=== PATIENT | female | born 1940 | race Caucasian/White ===

== ENCOUNTER 2018-09-04 10:07 | Emergency (ER) | payer MEDICARE, SELFPAY ==
[2018-09-04 10:34] VITALS: BP 129/63; PULSE 87; RESP 24; TEMP 36.8; O2SAT 92; BMI 31.1
--- NOTE | 2018-09-04 10:55 | HMH.EDUTC ---
[facility] [place] Disposition Clinical Impression: COPD exacerbation Depression Qualifiers: Depression Type: other depression Qualified Code(s): F32.89 - Other specified depressive episodes Hypertension Qualifiers: Hypertension type: essential hypertension Qualified Code(s): I10 - Essential (primary) hypertension Disposition: Home, Self-Care Condition on Discharge: Good Instructions: Chronic Obstructive Pulmonary Disease, DI for Chronic Obstructive Pulmonary Disease Additional Instructions: You have to get a primary care provider. We will give you a list of ones that are taking new patients. Prescriptions: Ipratropium/Albuterol Sulfate [Duoneb 3mL neb] 3 ml IH Q6HP PRN 30 Days #120 neb PRN Reason: Shortness Of Breath Albuterol Sulfate [Albuterol HFA Inhaler] 1 - 2 puffs IH Q4-6H PRN #1 inh PRN Reason: Shortness Of Breath Or Wheezing Atorvastatin Calcium [Atorvastatin 40mg Tab] 40 mg PO HS #30 tab Lisinopril [Lisinopril 20mg Tab] 20 mg PO DAILY #30 tab methylPREDNISolone [Medrol] 4 mg PO DIRECTED 6 Days #21 tab.ds.pk Metformin HCl 500 mg PO BID 30 Days #60 tab Pantoprazole Sodium [Pantoprazole 20mg Tab] 20 mg PO DAILY #30 tablet. Mirtazapine [Remeron 15mg tablet] 15 mg PO DAILY #30 tab Benzonatate [Tessalon Perle 100mg Cap] 100 mg PO TIDP PRN #30 cap PRN Reason: Cough Trazodone HCl 50 mg PO HS #30 tab Azithromycin [Z-Axel 250mg Tab] 250 mg PO UD DOSE PK #6 tab Referrals: Provider,Referral, MD [Primary Care Provider] - Time of Disposition: 11:05 Medical Decision Making - Medical Records Medical records reviewed: Yes: I reviewed the patient's medical records. - Jermaine Inquiry Pt receiving controlled substance: No Jermaine was queried for this patient: No Vital Signs: 09/04/18 10:34 09/04/18 11:07 Temperature 98.2 F 98.2 F Temperature Source Oral Oral Pulse Rate 87 Pulse Rate [Right Brachial] 87 Respiratory Rate 24 24 Blood Pressure 129/63 Blood Pressure [Right Arm] 129/63 Blood Pressure Mean [Right Arm] 85 Blood Pressure Source Automatic Cuff Blood Pressure Source [Right Arm] Automatic Cuff Blood Pressure Position Sitting Blood Pressure Position [Right Arm] Sitting 02 Sat by Pulse Oximetry 92 L Oxygen Delivery Method Room Air Room Air [facility] [place] HPI - General Stated complaint: Trouble Breathing Time Seen by Provider: 09/04/18 10:40 Mode of Arrival: Family Vehicle Source of Information: Patient Limitations: No Limitations Description of Symptoms (Recalled from Triage Doc. by RN): HERE REQUESTING MEDICATION REFILLS R/T NO PCP/TRANSPORTATION TO PCP. C/O SOB,COUGH AND CONGESTION/COPD EXACERBATION. WEARS HOME O2 HEENT Symptoms (Recalled from RN notes): Yes Resp Symptoms (Recalled from RN notes): Yes Skin Symptoms (Recalled from RN notes): No MS Symptoms (Recalled from RN notes): No Functional Status (Recalled from RN notes): N/A - History of Present Illness Provider Complaint: Her primary doctor recently moved away. She has a history of COPD. She is out of her medications and refills. She also states she has been coughing more than usual. She denies any chest pain. - Related Data Previous Rx's Medication Instructions Recorded Albuterol Sulfate [Albuterol HFA 1 - 2 puffs IH Q4-6H PRN #1 inh 09/04/18 Inhaler] Atorvastatin Calcium [Atorvastatin 40 mg PO HS #30 tab 09/04/18 40mg Tab] Azithromycin [Z-Axel 250mg Tab] 250 mg PO UD DOSE PK #6 tab 09/04/18 Benzonatate [Tessalon Perle 100mg 100 mg PO TIDP PRN #30 cap 09/04/18 Cap] Ipratropium/Albuterol Sulfate 3 ml IH Q6HP PRN 30 Days #120 neb 09/04/18 [Duoneb 3mL neb] Lisinopril [Lisinopril 20mg Tab] 20 mg PO DAILY #30 tab 09/04/18 Metformin HCl 500 mg PO BID 30 Days #60 tab 09/04/18 Mirtazapine [Remeron 15mg tablet] 15 mg PO DAILY #30 tab 09/04/18 Pantoprazole Sodium [Pantoprazole 20 mg PO DAILY #30 tablet. 09/04/18 20mg Tab] Trazodone HCl 50 mg PO HS #30 tab 09/04/18 methylPREDNISolone [Medrol] 4 mg PO DIRECTED 6 D
--- NOTE | 2018-09-04 11:00 | ED_ITS ---
[facility] Clinical Impression: COPD exacerbation Depression Qualifiers: Depression Type: other depression Qualified Code(s): F32.89 - Other specified depressive episodes Hypertension Qualifiers: Hypertension type: essential hypertension Qualified Code(s): I10 - Essential (primary) hypertension Disposition: Home, Self-Care Condition on Discharge: Good Instructions: Chronic Obstructive Pulmonary Disease, DI for Chronic Obstructive Pulmonary Disease Additional Instructions: You have to get a primary care provider. We will give you a list of ones that are taking new patients. Prescriptions: Ipratropium/Albuterol Sulfate [Duoneb 3mL neb] 3 ml IH Q6HP PRN 30 Days #120 neb PRN Reason: Shortness Of Breath Albuterol Sulfate [Albuterol HFA Inhaler] 1 - 2 puffs IH Q4-6H PRN #1 inh PRN Reason: Shortness Of Breath Or Wheezing Atorvastatin Calcium [Atorvastatin 40mg Tab] 40 mg PO HS #30 tab Lisinopril [Lisinopril 20mg Tab] 20 mg PO DAILY #30 tab methylPREDNISolone [Medrol] 4 mg PO DIRECTED 6 Days #21 tab.ds.pk Metformin HCl 500 mg PO BID 30 Days #60 tab Pantoprazole Sodium [Pantoprazole 20mg Tab] 20 mg PO DAILY #30 tablet. Mirtazapine [Remeron 15mg tablet] 15 mg PO DAILY #30 tab Benzonatate [Tessalon Perle 100mg Cap] 100 mg PO TIDP PRN #30 cap PRN Reason: Cough Trazodone HCl 50 mg PO HS #30 tab Azithromycin [Z-Axel 250mg Tab] 250 mg PO UD DOSE PK #6 tab Referrals: Provider,Referral, MD [Primary Care Provider] - Time of Disposition: 11:05 Medical Decision Making - Medical Records Medical records reviewed: Yes: I reviewed the patient's medical records. - Jermaine Inquiry Pt receiving controlled substance: No Jermaine was queried for this patient: No Vital Signs: 09/04/18 10:34 09/04/18 11:07 Temperature 98.2 F 98.2 F Temperature Source Oral Oral Pulse Rate 87 Pulse Rate [Right Brachial] 87 Respiratory Rate 24 24 Blood Pressure 129/63 Blood Pressure [Right Arm] 129/63 Blood Pressure Mean [Right Arm] 85 Blood Pressure Source Automatic Cuff Blood Pressure Source [Right Arm] Automatic Cuff Blood Pressure Position Sitting Blood Pressure Position [Right Arm] Sitting 02 Sat by Pulse Oximetry 92 L Oxygen Delivery Method Room Air Room Air [facility] [place] - General Stated complaint: Trouble Breathing Time Seen by Provider: 09/04/18 10:40 Mode of Arrival: Family Vehicle Source of Information: Patient Limitations: No Limitations Description of Symptoms (Recalled from Triage Doc. by RN): HERE REQUESTING MEDICATION REFILLS R/T NO PCP/TRANSPORTATION TO PCP. C/O SOB,COUGH AND CONGESTION/COPD EXACERBATION. WEARS HOME O2 HEENT Symptoms (Recalled from RN notes): Yes Resp Symptoms (Recalled from RN notes): Yes Skin Symptoms (Recalled from RN notes): No MS Symptoms (Recalled from RN notes): No Functional Status (Recalled from RN notes): N/A - History of Present Illness Provider Complaint: Her primary doctor recently moved away. She has a history of COPD. She is out of her medications and refills. She also states she has been coughing more than usual. She denies any chest pain. - Related Data Previous Rx's Medication Instructions Recorded Albuterol Sulfate [Albuterol HFA 1 - 2 puffs IH Q4-6H PRN #1 inh 09/04/18 Inhaler] Atorvastatin Calcium [Atorvastatin 40 mg PO HS #30 tab 06
[2018-09-04 11:07] VITALS: BP 129/63; PULSE 87; RESP 24; TEMP 36.8; O2SAT 92
== END 2018-09-04 11:15 | disposition home or self-care (01) ==
LOC: ER 10:21 → UTC 10:21
PROVIDERS: Emergency Provider Nurse Practitioner Family
DX: J44.1 Chronic obstructive pulmonary disease with (acute) exacerbation (principal); F32.89 Other specified depressive episodes; I10 Essential (primary) hypertension; E11.9 Type 2 diabetes mellitus without complications; Z79.84 Long term (current) use of oral hypoglycemic drugs; Z99.81 Dependence on supplemental oxygen; F17.210 Nicotine dependence, cigarettes, uncomplicated
CPT/HCPCS: G0463; 99201

== ENCOUNTER → 2019-08-24 13:37 | Outpatient (CLI) | payer MEDICARE, SELFPAY ==
[2019-08-24 14:19] LABS: Hemoglobin A1C 6.5 % (4.0-6.0)
[2019-08-24 14:37] LABS: Basophils # 0.1 K/mm3 (0-0.2); Basophils % 1.8 % (0.1-2.0); Eosinophils # 0.3 K/mm3 (0.0-0.4); Hematocrit 44.5 % (37.0-47.0); Hemoglobin 14.7 g/dL (12.2-16.2); Lymphocytes # 3.2 K/mm3 (0.7-4.5); Lymphocytes % 41.9 % (10-50); Mean Corpuscular Hemoglobin 29.5 pg (27.0-31.2); Mean Corpuscular Volume 89.4 fl (81-99); Mean Platelet Volume 9.4 fl (7.4-10.4); Monocytes # 0.3 K/mm3 (0.1-1.0); Monocytes % 3.3 % (1.7-9.3); Neutrophils # 3.8 K/mm3 (1.8-7.8); Platelet Count 198 K/mm3 (142-424); Red Blood Count 4.98 M/mm3 (4.20-5.40); Red Cell Distribution Width 13.9 % (11.5-17.5); White Blood Count 7.7 K/mm3 (4.8-10.8)
[2019-08-24 15:50] LABS: Chloride 104 mmol/L (98-107); Sodium 142 mmol/L (136-145)
[2019-08-24 16:05] LABS: Direct LDL Cholesterol 90.29 mg/dL (100-129)
[2019-08-24 16:11] LABS: Free T4 (Free Thyroxine) 0.96 ng/dl (0.78-2.19)
[2019-08-24 16:24] LABS: Thyroid Stimulating Hormone 4.88 uIU/mL (0.465-4.68)
[2019-08-24 16:28] LABS: Alanine Aminotransferase 15 U/L (12-78); Albumin Level 4.3 g/dl (3.5-5.0); Albumin/Globulin Ratio 1.5 (1.1-1.8); Alkaline Phosphatase 141 U/L (38-126); Aspartate Amino Transferase 17 U/L (14-36); Bilirubin,Total 0.5 mg/dl (0.2-1.3); Blood Urea Nitrogen 15 mg/dl (7-17); Calcium 9.2 mg/dl (8.4-10.2); Carbon Dioxide 28 mmol/L (22.0-30.0); Chol/HDL Ratio 2.5 (1-3.5); Cholesterol 148 mg/dl (140-200); Estimated Glomerular Filt Rate 53 ml/min (>60); GFR (African American) 65 ML/MIN (>60); Globulin 2.9 g/dL (1.3-3.2); Glucose 157 mg/dl (74-100); HDL Cholesterol 59 mg/dl (40-60); Total Protein,Serum 7.2 g/dl (6.3-8.2); Triglycerides 121 mg/dl (30-150); VLDL Cholesterol 24 mg/dL (0-40)
[2019-08-24 16:33] LABS: Anion Gap 14.1 mEq/L (5-15); Potassium 4.1 mmoL/L (3.5-5.1)
[2019-08-26 09:59] LABS: Vitamin D 25 Hydroxy 28.4 ng/mL (30.0-100.0)
== END ==
PROVIDERS: Visit Provider Emergency Medicine
DX: E11.9 Type 2 diabetes mellitus without complications (principal); J44.9 Chronic obstructive pulmonary disease, unspecified; F32.9 Major depressive disorder, single episode, unspecified; I10 Essential (primary) hypertension; E55.9 Vitamin D deficiency, unspecified
CPT/HCPCS: 36415; 80053; 80061; 82652; 83036; 84439; 84443; 85025

== ENCOUNTER → 2019-09-20 15:12 | Outpatient (CLI) | payer MEDICARE, MEDICAID, SELFPAY ==
[2019-09-21 19:07] LABS: Microalbumin/Creatinine Ratio 5.9
[2019-09-21 19:14] LABS: Creatinine,Urine Random 112 mg/dL (Not Estab.)
== END ==
PROVIDERS: Visit Provider Emergency Medicine
DX: E11.9 Type 2 diabetes mellitus without complications (principal); Z79.84 Long term (current) use of oral hypoglycemic drugs
CPT/HCPCS: 82043; 82570

== ENCOUNTER 2019-11-26 21:19 | Emergency (ER) | payer MEDICARE, MEDICAID, SELFPAY ==
[2019-11-26 21:16] VITALS: BP 164/76; PULSE 83; RESP 18; TEMP 36.6; O2SAT 95; BMI 28.2
--- NOTE | 2019-11-26 21:23 | HMH.EDGENADL ---
ED Disposition Clinical Impression: Abnormal CT scan, cervical spine CVA (cerebral vascular accident) Qualifiers: CVA mechanism: unspecified Qualified Code(s): I63.9 - Cerebral infarction, unspecified Disposition: Xfer Short-Term Hosp Condition on Discharge: Fair Referrals: ProviderParamjit [Tech - Non Licensed] - - Critical Care Critical Care Time: No Attestation: On 11/26/19, the high probability of a clinically significant, sudden or life threatening deterioration of the following system(s) required my full and direct attention, intervention and personal management. The time I documented below is in addition to time spent performing reported procedures but includes the following listed in this critical care notation. Medical Decision Making - Medical Records Medical records reviewed: Yes: I reviewed the patient's medical records. - Jermaine Inquiry Pt receiving controlled substance: No Vital Signs: 11/26/19 21:16 11/26/19 21:29 11/27/19 00:02 Temperature 97.8 F Temperature Source Oral Pulse Rate Pulse Rate [Orthostatic Lying] 85 Pulse Rate [Orthostatic Sitting] 96 H Pulse Rate [Orthostatic Standing] 92 H Pulse Rate [Right Radial] 83 91 H Respiratory Rate 18 18 Blood Pressure Blood Pressure [Left Arm] 164/76 H 164/79 H Blood Pressure [Orthostatic Lying] 165/90 H Blood Pressure [Orthostatic Sitting] 159/95 H Blood Pressure [Orthostatic Standing] 151/90 H Blood Pressure Mean [Left Arm] 105 107 Blood Pressure Source Blood Pressure Source [Left Arm] Automatic Cuff Blood Pressure Position Blood Pressure Position [Left Arm] Supine 02 Sat by Pulse Oximetry 95 93 L Oxygen Delivery Method Room Air 11/27/19 00:03 11/27/19 00:26 11/27/19 01:38 Temperature Temperature Source Pulse Rate Pulse Rate [Orthostatic Lying] Pulse Rate [Orthostatic Sitting] Pulse Rate [Orthostatic Standing] Pulse Rate [Right Radial] 101 H 84 87 Respiratory Rate 18 16 16 Blood Pressure Blood Pressure [Left Arm] 151/90 H 193/100 H 210/110 H Blood Pressure [Orthostatic Lying] Blood Pressure [Orthostatic Sitting] Blood Pressure [Orthostatic Standing] Blood Pressure Mean [Left Arm] 110 131 143 Blood Pressure Source Blood Pressure Source [Left Arm] Blood Pressure Position Blood Pressure Position [Left Arm] Sitting 02 Sat by Pulse Oximetry 92 L 96 98 Oxygen Delivery Method Room Air Room Air Room Air 11/27/19 01:42 11/27/19 01:56 11/27/19 02:07 Temperature Temperature Source Pulse Rate Pulse Rate [Orthostatic Lying] Pulse Rate [Orthostatic Sitting] Pulse Rate [Orthostatic Standing] Pulse Rate [Right Radial] 80 82 Respiratory Rate 18 18 Blood Pressure 210/110 H Blood Pressure [Left Arm] 172/104 H 168/98 H Blood Pressure [Orthostatic Lying] Blood Pressure [Orthostatic Sitting] Blood Pressure [Orthostatic Standing] Blood Pressure Mean [Left Arm] 126 121 Blood Pressure Source Blood Pressure Source [Left Arm] Blood Pressure Position Blood Pressure Position [Left Arm] 02 Sat by Pulse Oximetry 95 93 L Oxygen Delivery Method Room Air Room Air 11/27/19 02:36 11/27/19 03:14 Temperature 98.4 F Temperature Source Oral Pulse Rate 87 Pulse Rate [Orthostatic Lying] Pulse Rate [Orthostatic Sitting] Pulse Rate [Orthostatic Standing] Pulse Rate [Right Radial] 76 Respiratory Rate 18 16 Blood Pressure 190/100 H Blood Pressure [Left Arm] 173/91 H Blood Pressure [Orthostatic Lying] Blood Pressure [Orthostatic Sitting] Blood Pressure [Orthostatic Standing] Blood Pressure Mean [Left Arm] 118 Blood Pressure Source Automatic Cuff Blood Pressure Source [Left Arm] Blood Pressure Position Sitting Blood Pressure Position [Left Arm] 02 Sat by Pulse Oximetry 92 L Oxygen Delivery Method Room Air Room Air - Lab Data Lab results reviewed: Yes: I reviewed the patient's lab results. L
[2019-11-26 21:29] VITALS: BP 164/79; PULSE 91; RESP 18; O2SAT 93
--- NOTE | 2019-11-26 21:39 | XR_ITS ---
PROCEDURE: XR HIP RT 2-3V W/PELVIS CLINICAL INDICATION: FALL Fall with injury and pain COMPARISON: CR HIP2L HIP-2 VIEWS-LT from 12/09/2014 FINDINGS: No fracture or dislocation is evident. No significant degenerative change. No lytic or blastic change. There are coarse central pelvic calcification which may be due to uterine fibroid involvement.. IMPRESSION: No acute findings. Dictated by: Sergey Varghese MD 11/27/2019 06:26 Sergey Varghese MD in [facility] 11/27/2019 06:26
--- NOTE | 2019-11-26 21:39 | CT_ITS ---
PROCEDURE: CT HEAD/BRAIN WO CON CLINICAL INDICATION: FALL Head injury with headache/pain, contusion, abrasion or hematoma, multiple falls COMPARISON: No exams were available for comparison TECHNIQUE: Axial images obtained. All CT scans at the facility use one or more dose reduction, viz: automated exposure control, ma/kV adjustment per patient size (including targeted exams where dose is matched to indication, i.e. head), or iterative reconstruction technique. FINDINGS: Low-density changes are present in the left cerebellar hemisphere with loss of ying/white matter differentiation. No intracranial hemorrhage is evident. These findings are worrisome for acute or subacute infarction. MRI may confirm. There is an old lacunar infarction of the joe centrally. Encephalomalacia changes are present in the left occipital lobe and in the right frontal parietal junction. There are old bilateral lacunar infarctions. No hydrocephalus. Periventricular ischemic gliotic changes are noted Mucosal thickening is present in the sphenoid sinus on the right. IMPRESSION: 1. Low-density changes with mild mass effect and edema in the left cerebellar hemisphere consistent with acute or subacute infarction. Consider MRI for confirmation. 2. Cephalo malacia changes left occipital lobe and right frontal parietal region with old bilateral lacunar infarctions. 3. No acute intracranial hemorrhage 4. [facility] report rendered and dated 11/26/2019 at 11:24 p.m. Dictated by: Sergey Varghese MD 11/27/2019 06:51 Sergey Varghese MD in [facility] 11/27/2019 06:51
--- NOTE | 2019-11-26 21:51 | ECG_ITS ---
APPROVED REPORT Exam: Resting ECG HR:81 bpm ECG Measurements Heart Rate 81 AXES LA 150 P 65 QRSd 84 QRS 12 QT 434 T 44 QTc 504 <Conclusion> Sinus rhythm with occasional premature ventricular complexes Prolonged QT Abnormal ECG Electronically signed by : Micky Huynh, 11/27/2019 09:59:32
--- NOTE | 2019-11-26 21:51 | CT_ITS ---
PROCEDURE: CT CERVICAL SPINE WO CON CLINICAL INDICATION: fall Posttraumatic pain Neck injury with pain, contusion/abrasion or hematoma, cervical sprain/strain the COMPARISON: No exams were available for comparison TECHNIQUE: Axial images obtained with sagittal and coronal reformats. All CT scans at the facility use one or more dose reduction, viz: automated exposure control, ma/kV adjustment per patient size (including targeted exams where dose is matched to indication, i.e. head), or iterative reconstruction technique. Axial spiral CT scanning performed of the cervical spine beginning at the base of the skull and continuing to the upper T-spine. 3-D multiplanar reconstruction with 3-D manipulation of volumetric data set in image rendering was completed by the radiologist and/or technologist with the supervision of the radiologist on independent workstation. FINDINGS: There is normal alignment. Multilevel cervical spondylosis is present. There is rotation of C1 to the right on C2 possibly positional. Please correlate with physical exam. No prevertebral soft tissue swelling. Multilevel degenerative changes are present. No acute fracture or dislocation. C2-C3: Unremarkable. C3-C4: Degenerative disc disease. C4-C5: Degenerative disc disease with mild right foraminal narrowing. C5-C6: Degenerate disc disease with bilateral foraminal narrowing C6-C7: Degenerate disc disease. There is a corrugated appearance of the T2 vertebral body consistent with hemangioma involvement. Paraseptal emphysematous changes are present in the lung apices. IMPRESSION: 1. No acute fracture. 2. Rotation of C1 on C2 possibly positional, correlate clinically. 3. Degenerative changes. 4. Hemangioma T2 Dictated by: Sergey Varghese MD 11/27/2019 06:57 Sergey Varghese MD in [facility] 11/27/2019 06:57
[2019-11-26 22:20] LABS: Basophils % 0.3 % (0.1-2.0); Eosinophils # 0.1 K/mm3 (0.0-0.4); Eosinophils % 0.9 % (0.1-12.0); Hemoglobin 16.2 g/dL (12.2-16.2); Lymphocytes # 1.7 K/mm3 (0.7-4.5); Lymphocytes % 12.7 % (10-50); Mean Corpuscular HGB Conc 34.5 g/dL (31.8-35.4); Mean Corpuscular Hemoglobin 30.1 pg (27.0-31.2); Mean Corpuscular Volume 87.2 fl (81-99); Mean Platelet Volume 9.4 fl (7.4-10.4); Monocytes # 0.3 K/mm3 (0.1-1.0); Monocytes % 2.3 % (1.7-9.3); Neutrophils # 11.2 K/mm3 (1.8-7.8); Neutrophils % 83.8 % (37.0-80.0); Platelet Count 188 K/mm3 (142-424); Red Blood Count 5.39 M/mm3 (4.20-5.40); Red Cell Distribution Width 14.2 % (11.5-17.5); White Blood Count 13.4 K/mm3 (4.8-10.8)
[2019-11-26 22:23] LABS: Chloride 98 mmol/L (98-107); Potassium 4.1 mmoL/L (3.5-5.1); Sodium 140 mmol/L (136-145)
[2019-11-26 22:26] LABS: Alanine Aminotransferase 35 U/L (12-78); Albumin Level 4.9 g/dl (3.5-5.0); Albumin/Globulin Ratio 1.3 (1.1-1.8); Alkaline Phosphatase 200 U/L (38-126); Anion Gap 15.1 mEq/L (5-15); Aspartate Amino Transferase 34 U/L (14-36); Bilirubin,Total 0.7 mg/dl (0.2-1.3); Blood Urea Nitrogen 15 mg/dl (7-17); Calcium 10.4 mg/dl (8.4-10.2); Carbon Dioxide 31 mmol/L (22.0-30.0); Creatinine Clearance Estimated 57 mL/min (50-200); Estimated Glomerular Filt Rate 60 ml/min (>60); GFR (African American) 73 ML/MIN (>60); Globulin 3.8 g/dL (1.3-3.2); Glucose 190 mg/dl (74-100); Total Protein,Serum 8.7 g/dl (6.3-8.2)
[2019-11-26 22:39] LABS: Troponin I < 0.01 ng/ml (0.00-0.034)
--- NOTE | 2019-11-26 23:24 | PC.NURSE ---
speaking with MARVIN
--- NOTE | 2019-11-26 23:26 | XR_ITS ---
PROCEDURE: XR CHEST PORTABLE CLINICAL HISTORY: falls, vomiting Posttraumatic pain COMPARISON: CR CXR1 CHEST-PORTABLE from 11/20/2016 CR CXR2V XR chest 2V from 07/03/[address] chest wo con from 07/03/2018 CR XR CHEST 2V from 11/05/2018 FINDINGS: Normal heart size. There is increased density in the right paratracheal region with deviation of the trachea toward the left There is some vascular crowding in the right lung base. No lobar consolidation or collapse. No acute bony abnormalities. IMPRESSION: Trachea toward the left with increased density of the right paratracheal region suggesting right paratracheal mass. CT with contrast may confirm. Dictated by: Sergey Varghese MD 11/27/2019 06:24 Sergey Varghese MD in [facility] 11/27/2019 06:24
--- NOTE | 2019-11-26 23:54 | PC.NURSE ---
ATTENDING PROVIDER ADVISES C-COLLAR SHOULD BE PLACED AT THIS TIME DUE TO ABNORMAL HEAD/NECK CT RESULTS. AWAITING NEW ORDERS. PATIENT IS NAD. VSS
--- NOTE | 2019-11-26 23:59 | PC.NURSE ---
Calling [facility]
[2019-11-27] VITALS (9 sets, daily range): BP systolic 151–210; BP diastolic 90–110; PULSE 76–101; RESP 16–18; TEMP 36.9; O2SAT 92–98
[2019-11-27 00:05] LABS: Microscopic, Urine URINE MICROSCOPIC (MICROSCOPIC)
--- NOTE | 2019-11-27 00:05 | PC.NURSE ---
Cervical collar applied at this time
--- NOTE | 2019-11-27 00:05 | PC.NURSE ---
speaking with Dr. Pathak
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
[2019-11-27 00:15] LABS: Appearance,Urine CLOUDY (Clear); Bilirubin,Urine Negative (Negative); Blood, Urine 1+ (Negative); Color,Urine YELLOW (Yellow); Glucose,Urine (UA) Negative (Negative); Ketones,Urine Negative (Negative); Leukocyte Esterase,Urine TRACE (Negative); Nitrate,Urine Negative (Negative); Protein,Urine 1+ (Negative)
--- NOTE | 2019-11-27 00:28 | PC.NURSE ---
Notified family what the POC was and that there would be a delay in transfer. Family and pt agreeable to plan
[2019-11-27 00:30] LABS: Bacteria,Urine 4+ /lpf
--- NOTE | 2019-11-27 01:38 | PC.NURSE ---
Manual pressure obtained, pressure is 210/110. Notified MD of increase and given order for meds
== END 2019-11-27 03:15 | disposition short-term general hospital (02) ==
PROVIDERS: Emergency Provider Emergency Medicine; PCP Emergency Medicine
DX: I63.9 Cerebral infarction, unspecified (principal); R93.7 Abnormal findings on diagnostic imaging of other parts of musculoskeletal system; I10 Essential (primary) hypertension; E11.9 Type 2 diabetes mellitus without complications; J44.9 Chronic obstructive pulmonary disease, unspecified; F17.210 Nicotine dependence, cigarettes, uncomplicated; Z79.899 Other long term (current) drug therapy; Z86.73 Personal history of transient ischemic attack (TIA), and cerebral infarction without residual deficits; W18.39XA Other fall on same level, initial encounter; Y92.019 Unspecified place in single-family (private) house as the place of occurrence of the external cause
CPT/HCPCS: 70450; 71045; 72125; 73502; 80053; 81001; 84484; 85025; 87086; 87088; 87186; 93005; 96374; 96375; 99285; J2405

== ENCOUNTER → 2020-02-08 17:44 | Outpatient (CLI) | payer MEDICARE, MEDICAID, SELFPAY ==
[2020-02-08 18:40] LABS: Basophils # 0.1 K/mm3 (0-0.2); Basophils % 0.6 % (0.1-2.0); Eosinophils # 0.2 K/mm3 (0.0-0.4); Eosinophils % 2.3 % (0.1-12.0); Hemoglobin 15.5 g/dL (12.2-16.2); Lymphocytes # 3.1 K/mm3 (0.7-4.5); Lymphocytes % 35.9 % (10-50); Mean Corpuscular HGB Conc 33.7 g/dL (31.8-35.4); Mean Corpuscular Volume 88.8 fl (81-99); Mean Platelet Volume 10.1 fl (7.4-10.4); Monocytes # 0.4 K/mm3 (0.1-1.0); Monocytes % 4.3 % (1.7-9.3); Neutrophils % 56.9 % (37.0-80.0); Platelet Count 209 K/mm3 (142-424); Red Blood Count 5.18 M/mm3 (4.20-5.40); Red Cell Distribution Width 14.5 % (11.5-17.5); White Blood Count 8.7 K/mm3 (4.8-10.8)
[2020-02-08 19:43] LABS: Anion Gap 18.6 mEq/L (5-15); Blood Urea Nitrogen 20 mg/dl (7-17); Calcium 10.6 mg/dl (8.4-10.2); Carbon Dioxide 27 mmol/L (22.0-30.0); Chloride 98 mmol/L (98-107); Estimated Glomerular Filt Rate 53 ml/min (>60); GFR (African American) 65 ML/MIN (>60); Glucose 287 mg/dl (74-100); Potassium 4.6 mmoL/L (3.5-5.1); Sodium 139 mmol/L (136-145)
[2020-02-09 18:42] LABS: Hemoglobin A1C 8.8 % (4.0-6.0)
== END ==
PROVIDERS: Physician Assistant; Visit Provider Emergency Medicine
DX: E11.9 Type 2 diabetes mellitus without complications (principal); Z79.84 Long term (current) use of oral hypoglycemic drugs
CPT/HCPCS: 80048; 83036; 85025

== ENCOUNTER → 2020-02-25 08:45 | Outpatient (CLI) | payer MEDICARE, MEDICAID, SELFPAY ==
--- NOTE | 2020-02-25 08:50 | CT_ITS ---
PROCEDURE: CT CHEST W CON CLINCAL INDICATION: RIGHT PARATRACHEAL MASS Follow-up abnormal chest x-ray with tracheal deviation COMPARISON: CT CHESTWO CT chest wo con from 07/03/2018 CR XR CHEST PORTABLE from 11/26/2019 TECHNIQUE: IV Contrast: 75ml Isovue 370 Axial images obtained with sagittal and coronal reformats. All CT scans at the facility use one or more dose reduction, viz: automated exposure control, ma/kV adjustment per patient size (including targeted exams where dose is matched to indication, i.e. head), or iterative reconstruction technique. FINDINGS: HEART AND MEDIASTINAL STRUCTURES: The upper trachea is slightly deviated toward the left. There is mildly enlarged right lobe of the thyroid gland and vascular ectasia which may account for this finding. No suspicious paratracheal mass is apparent with no significant change from 07/03/2018. There are few small mediastinal lymph nodes. There is mild dilatation of the descending thoracic aorta with atheromatous plaque with some ulceration. There is a focal area of dilatation of the descending thoracic aorta with the aorta measuring 3.2 cm in AP with some ulcerated plaque at this area. No evidence of dissection dimension LUNGS AND PLEURAL SPACES: Paraseptal and centrilobular emphysema with evidence of old granulomatous disease. No lobar consolidation or collapse. There are dependent changes in the lower lobes and along the major fissure superiorly. BONY STRUCTURES: Degenerative changes thoracic spine with mild kyphosis. Hemangioma at T2. UPPER ABDOMEN: Unremarkable. ADDITIONAL FINDINGS: No other significant abnormalities. IMPRESSION: 1. No paratracheal mass evident. There is mild enlargement of the right lobe of the thyroid gland with ectasia of the right carotid artery which may be causing some mild deviation of the trachea toward the left. 2. Focal dilatation of the descending thoracic aorta at 3.2 cm which may be slightly more prominent. Continued follow-up suggested. There is some ulcerating plaque at this area. 3. Other nonacute findings as described above Dictated by: Sergey Varghese MD 02/27/2020 10:43 Sergey Varghese MD in [facility] 02/27/2020 10:43
[2020-02-25 09:04] LABS: Chloride 103 mmol/L (98-107); Potassium 4.4 mmoL/L (3.5-5.1); Sodium 138 mmol/L (136-145)
[2020-02-25 09:07] LABS: Anion Gap 10.4 mEq/L (5-15); Blood Urea Nitrogen 20 mg/dl (7-17); Carbon Dioxide 29 mmol/L (22.0-30.0); Estimated Glomerular Filt Rate 43 ml/min (>60); GFR (African American) 52 ML/MIN (>60)
[2020-02-25 09:08] LABS: Calcium 9.7 mg/dl (8.4-10.2); Glucose 206 mg/dl (74-100)
== END ==
PROVIDERS: PCP Emergency Medicine; Visit Provider Emergency Medicine
DX: J39.8 Other specified diseases of upper respiratory tract (principal); R22.1 Localized swelling, mass and lump, neck
CPT/HCPCS: 36415; 71260; 80048; Q9967

== ENCOUNTER → 2021-03-07 16:09 | Outpatient (CLI) | payer MEDICARE, MEDICAID, SELFPAY ==
[2021-03-07 17:28] LABS: Hemoglobin A1C 6.9 % (4.0-6.0)
== END ==
PROVIDERS: Visit Provider Emergency Medicine
DX: E11.9 Type 2 diabetes mellitus without complications (principal); Z79.84 Long term (current) use of oral hypoglycemic drugs
CPT/HCPCS: 83036

== ENCOUNTER → 2022-08-12 16:00 | Outpatient (CLI) | payer MEDICARE, MEDICAID, SELFPAY ==
[2022-08-12 18:33] LABS: Chloride 104 mmol/L (98-107); Potassium 4.8 mmoL/L (3.5-5.1); Sodium 140 mmol/L (136-145)
[2022-08-12 18:35] LABS: Blood Urea Nitrogen 21 mg/dl (7-17); Estimated Glomerular Filt Rate 43 ml/min (>60); GFR (African American) 52 ML/MIN (>60)
[2022-08-12 18:36] LABS: Alanine Aminotransferase 21 U/L (12-78); Albumin Level 4.4 g/dl (3.5-5.0); Albumin/Globulin Ratio 1.4 (1.1-1.8); Alkaline Phosphatase 147 U/L (38-126); Anion Gap 12.8 mEq/L (5-15); Aspartate Amino Transferase 25 U/L (14-36); Bilirubin,Total 0.4 mg/dl (0.2-1.3); Calcium 10.3 mg/dl (8.4-10.2); Carbon Dioxide 28 mmol/L (22.0-30.0); Chol/HDL Ratio 3.9 (1-3.5); Cholesterol 201 mg/dl (140-200); Globulin 3.1 g/dL (1.3-3.2); Glucose 107 mg/dl (74-100); HDL Cholesterol 51 mg/dl (40-60); Total Protein,Serum 7.5 g/dl (6.3-8.2); Triglycerides 221 mg/dl (30-150); VLDL Cholesterol 44 mg/dL (0-40)
[2022-08-12 18:44] LABS: Basophils # 0.1 K/mm3 (0-0.2); Basophils % 0.6 % (0.1-2.0); Eosinophils # 0.2 K/mm3 (0.0-0.4); Eosinophils % 2.6 % (0.1-12.0); Hematocrit 47.2 % (37.0-47.0); Hemoglobin 15.6 g/dL (12.2-16.2); Lymphocytes # 2.8 K/mm3 (0.7-4.5); Lymphocytes % 32.6 % (10-50); Mean Corpuscular Hemoglobin 29.6 pg (27.0-31.2); Mean Corpuscular Volume 89.7 fl (81-99); Mean Platelet Volume 9.5 fl (7.4-10.4); Monocytes # 0.4 K/mm3 (0.1-1.0); Monocytes % 4.7 % (1.7-9.3); Neutrophils # 5.2 K/mm3 (1.8-7.8); Neutrophils % 59.5 % (37.0-80.0); Platelet Count 223 K/mm3 (142-424); Red Blood Count 5.26 M/mm3 (4.20-5.40); Red Cell Distribution Width 14.4 % (11.5-17.5); White Blood Count 8.7 K/mm3 (4.8-10.8)
[2022-08-12 18:47] LABS: Direct LDL Cholesterol 106.26 mg/dL (100-129)
[2022-08-12 18:54] LABS: T4 (Thyroxine) 10.3 ug/dl (5.53-11.0)
[2022-08-12 19:07] LABS: Thyroid Stimulating Hormone 3.96 uIU/mL (0.465-4.68)
[2022-08-12 19:42] LABS: Free T4 (Free Thyroxine) 1.03 ng/dl (0.78-2.19)
[2022-08-13 09:12] LABS: Hemoglobin A1C 6.6 % (4.0-6.0)
== END ==
PROVIDERS: PCP Nurse Practitioner Family; Visit Provider Nurse Practitioner Family
DX: E11.9 Type 2 diabetes mellitus without complications (principal); I10 Essential (primary) hypertension; Z79.84 Long term (current) use of oral hypoglycemic drugs
CPT/HCPCS: 80053; 80061; 83036; 84436; 84439; 84443; 85025

== ENCOUNTER → 2023-02-12 23:00 | Outpatient (CLI) | payer MEDICARE, MEDICAID, SELFPAY ==
[2023-02-12 18:39] LABS: Basophils % 0.5 % (0.1-2.0); Eosinophils # 0.2 K/mm3 (0.0-0.4); Eosinophils % 2.4 % (0.1-12.0); Hematocrit 46.2 % (37.0-47.0); Hemoglobin 15.1 g/dL (12.2-16.2); Lymphocytes % 36.6 % (10-50); Mean Corpuscular HGB Conc 32.7 g/dL (31.8-35.4); Mean Corpuscular Hemoglobin 30.6 pg (27.0-31.2); Mean Corpuscular Volume 93.7 fl (81-99); Mean Platelet Volume 9.5 fl (7.4-10.4); Monocytes # 0.4 K/mm3 (0.1-1.0); Monocytes % 5.1 % (1.7-9.3); Neutrophils # 4.6 K/mm3 (1.8-7.8); Neutrophils % 55.4 % (37.0-80.0); Platelet Count 207 K/mm3 (142-424); Red Blood Count 4.93 M/mm3 (4.20-5.40); Red Cell Distribution Width 14.2 % (11.5-17.5); White Blood Count 8.2 K/mm3 (4.8-10.8)
[2023-02-12 18:44] LABS: Alanine Aminotransferase 20 U/L (12-78); Albumin Level 4.2 g/dl (3.5-5.0); Albumin/Globulin Ratio 1.4 (1.1-1.8); Alkaline Phosphatase 182 U/L (38-126); Anion Gap 11.3 mEq/L (5-15); Aspartate Amino Transferase 23 U/L (14-36); Bilirubin,Total 0.3 mg/dl (0.2-1.3); Blood Urea Nitrogen 21 mg/dl (7-17); Calcium 9.1 mg/dl (8.4-10.2); Carbon Dioxide 28 mmol/L (22.0-30.0); Chloride 103 mmol/L (98-107); Chol/HDL Ratio 5.5 (1-3.5); Cholesterol 216 mg/dl (140-200); Estimated Glomerular Filt Rate 43 ml/min (>60); GFR (African American) 52 ML/MIN (>60); Globulin 3.1 g/dL (1.3-3.2); Glucose 139 mg/dl (74-100); HDL Cholesterol 39 mg/dl (40-60); Potassium 4.3 mmoL/L (3.5-5.1); Sodium 138 mmol/L (136-145); Total Protein,Serum 7.3 g/dl (6.3-8.2); Triglycerides 271 mg/dl (30-150); VLDL Cholesterol 54 mg/dL (0-40)
[2023-02-12 18:56] LABS: Direct LDL Cholesterol 129.31 mg/dL (100-129)
[2023-02-12 19:14] LABS: Thyroid Stimulating Hormone 3.84 uIU/mL (0.465-4.68)
[2023-02-12 19:42] LABS: 25-OH Vitamin D, Total > 126 ng/mL (30-100)
[2023-02-12 20:50] LABS: Hemoglobin A1C 6.9 % (4.0-6.0)
== END ==
LOC: LAB.DROPOF 02-13 00:06
PROVIDERS: PCP Emergency Medicine; Visit Provider Internal Medicine
DX: E03.9 Hypothyroidism, unspecified (principal); J20.9 Acute bronchitis, unspecified; E11.9 Type 2 diabetes mellitus without complications; E55.9 Vitamin D deficiency, unspecified; Z68.27 Body mass index [BMI] 27.0-27.9, adult; Z79.84 Long term (current) use of oral hypoglycemic drugs; Z72.0 Tobacco use
CPT/HCPCS: 80053; 80061; 82306; 83036; 84443; 85025

== ENCOUNTER 2023-06-12 17:20 | Emergency (ER) | payer MEDICARE, MEDICAID, SELFPAY ==
[2023-06-12 17:28] VITALS: BP 113/61; PULSE 107; RESP 22; TEMP 37.1; O2SAT 91; BMI 29.9
--- NOTE | 2023-06-12 17:28 | ED_ITS ---
<Statement entered by Gissel Wright DO - 06/12/23 17:54> I was consulted by the JESUS MANUEL, and we discussed the complexity of the problems being addressed. I approved the treatment and management plan for this patient's care in the emergency department, thus performing a substantive portion of the medical decision making. Gissel Wright DO Discharge Plan Disposition Patient Disposition: Xfer Short-Term Hosp Condition: Good Prescriptions Prescriptions: No Action (DME) blood-glucose meter Kit See Rx Instructions .ROUTE .MEDSUPPLY Qty: 1 3RF Rx Instructions: As directed (DME) True Metrix Glucose Test Strip Strip See Rx Instructions .Route Qty: 100 2RF Rx Instructions: As directed (DME) lancets [TRUEplus Lancets] 28 gauge misc See Rx Instructions .Route Qty: 100 2RF Rx Instructions: As directed ipratropium-albuterol 0.5 mg-3 mg(2.5 mg base)/3 mL solution for nebulization See Rx Instructions .ROUTE .COMPLEX Qty: 360 2RF Dose Instruction: INHALE CONTENTS OF 1 VIAL VIA NEBULIZER EVERY 6 HOURS NEEDED FOR SHORTNESS OF BREATH Rx Instructions: INHALE CONTENTS OF 1 VIAL VIA NEBULIZER EVERY 6 HOURS NEEDED FOR SHORTNESS OF BREATH Anoro Ellipta 62.5-25 mcg/actuation blister with device 1 inh inhalation DAILY Qty: 30 12RF cholecalciferol (vitamin D3) 1,250 mcg (50,000 unit) capsule See Rx Instructions .ROUTE .COMPLEX Qty: 4 3RF Dose Instruction: TAKE ONE CAPSULE BY MOUTH EVERY WEEK Rx Instructions: TAKE ONE CAPSULE BY MOUTH EVERY WEEK levothyroxine 25 mcg tablet See Rx Instructions .ROUTE .COMPLEX Qty: 28 3RF Dose Instruction: TAKE ONE TABLET BY MOUTH ONCE A DAY Rx Instructions: TAKE ONE TABLET BY MOUTH ONCE A DAY aspirin 81 mg tablet,chewable See Rx Instructions .ROUTE .COMPLEX Qty: 28 3RF Dose Instruction: CHEW 1 TABLET BY MOUTH ONCE A DAY Rx Instructions: CHEW 1 TABLET BY MOUTH ONCE A DAY metformin 500 mg tablet extended release 24 hr See Rx Instructions .ROUTE .COMPLEX Qty: 28 3RF Dose Instruction: TAKE ONE TABLET BY MOUTH ONCE A DAY Rx Instructions: TAKE ONE TABLET BY MOUTH ONCE A DAY clopidogrel 75 mg tablet See Rx Instructions .ROUTE .COMPLEX Qty: 28 3RF Dose Instruction: TAKE ONE TABLET BY MOUTH ONCE A DAY Rx Instructions: TAKE ONE TABLET BY MOUTH ONCE A DAY mirtazapine 15 mg tablet See Rx Instructions .ROUTE .COMPLEX Qty: 28 0RF Dose Instruction: TAKE ONE TABLET BY MOUTH ONCE A DAY Rx Instructions: TAKE ONE TABLET BY MOUTH ONCE A DAY cholecalciferol (vitamin D3) 25 mcg (1,000 unit) tablet See Rx Instructions .ROUTE .COMPLEX Qty: 90 0RF Dose Instruction: TAKE ONE TABLET BY MOUTH ONCE A DAY Rx Instructions: TAKE ONE TABLET BY MOUTH ONCE A DAY trazodone 50 mg tablet See Rx Instructions .ROUTE .COMPLEX Qty: 30 0RF Dose Instruction: TAKE ONE TABLET BY MOUTH AT BEDTIME FOR SLEEP Rx Instructions: TAKE ONE TABLET BY MOUTH AT BEDTIME FOR SLEEP pantoprazole 40 mg tablet,delayed release (DR/EC) See Rx Instructions .ROUTE .COMPLEX Qty: 30 0RF Dose Instruction: TAKE ONE TABLET BY MOUTH ONCE A DAY FOR GERD Rx Instructions: TAKE ONE TABLET BY MOUTH ONCE A DAY FOR GERD atorvastatin 40 mg tablet See Rx Instructions .ROUTE .COMPLEX Qty: 30 0RF Dose Instruction: TAKE ONE TABLET BY MOUTH AT BEDTIME FOR HIGH CHOLESTEROL Rx Instructions: TAKE ONE TABLET BY MOUTH AT BEDTIME FOR HIGH CHOLESTEROL amlodipine 2.5 mg tablet See Rx Instructions .ROUTE .COMPLEX Qty: 30 0RF Dose Instruction: TAKE ONE TABLET BY MOUTH ONCE A DAY Rx Instructions: TAKE ONE TABLET BY MOUTH ONCE A DAY lisinopril 30 mg tablet See Rx Instructions .ROUTE .COMPLEX Qty: 30 0RF Dose Instruction: TAKE ONE TABLET BY MOUTH ONCE A DAY Rx Instructions: TAKE ONE TABLET BY MOUTH ONCE A DAY nystatin 100,000 unit/mL suspension 500,000 unit buccal DAILY Qty: 473 0RF Rx Instructions: administer 1/2 of dose in each side of the mouth nystatin 100,000 unit/gram ointment 1 applic topical TID Qty: 30 0RF albuterol sulfate 8.5 GM HFA aerosol inhaler 2 puffs inhalation Q4HP PRN (Reason: Shortness Of Breath Or Wheezing) Qty: 1 2RF Referrals Follow up/Referrals: Brodie Rhodes DO [Primary Care Provider] - See instructions Clinical Impressions 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 Herpes zoster Qualifiers: Herpes zoster complications: with other complications Qualified Code(s): B02.8 - Zoster with other complications Stand Alone Forms Stand Alone Forms: Transfer Record - ED Instructions Patient Instructions: DI for Skin Abscess Discharge ED Provider: Gissel Wright General Adult HPI <DARY Temple - Last Filed: 06/16/23 14:36> General Chief complaint: Skin/Abscess/Foreign Body Stated complaint: blisters mouth and nose Time Seen by Provider: 06/12/23 17:28 History of Present Illness HPI narrative: Presents 6 to 7 days after finding clear blisters in her mouth that have continued to spread across the right side of her face involving her eye. Her daughter contacted her PCP who prescribed her for nystatin swish and swallow and nystatin topical ointment for the facial blisters. She started those medications on Friday of this week but has had no improvement. The patient contacted her daughter today saying that it was much worse and that she has lost ability to see in the right eye. Patient denies chest pain subjective fever endorses that it is hard for her to breathe and that she is short of air due to blisters in my mouth , nausea vomiting diarrhea hemoptysis hematochezia melena. Related Data Previous Rx's Medication Instructions Recorded albuterol sulfate 90 mcg/actuation 2 puffs inhalation Q4HP PRN 11/05/18 aerosol inhaler Shortness Of Breath Or Wheezing #1 inh blood-glucose meter #1 ea 03/09/21 blood sugar diagnostic (True #100 ea 01/24/22 Metrix Glucose Test Strip) lancets 28 gauge (TRUEplus Lancets) #100 ea 01/24/22 ipratropium 0.5 mg-albuterol 3 mg See Rx Instructions .Route 05/09/22 (2.5 mg base)/3 mL nebulization .COMPLEX #360 mL soln umeclidinium 62.5 mcg-vilanterol 1 inh inhalation DAILY #30 ea 11/04/22 25 mcg/actuation powdr for inhalation (Anoro Ellipta) aspirin 81 mg chewable tablet See Rx Instructions .Route 03/11/23 .COMPLEX #28 tabs cholecalciferol (vitamin D3) 1,250 See Rx Instructions .Route 03/11/23 mcg (50,000 unit) capsule .COMPLEX #4 caps clopidogrel 75 mg tablet See Rx Instructions .Route 03/11/23 .COMPLEX #28 tabs levothyroxine 25 mcg tablet See Rx Instructions .Route 03/11/23 .COMPLEX #28 tabs metformin 500 mg tablet,extended See Rx Instructions .Route 03/11/23 release 24 hr .COMPLEX #28 tabs amlodipine 2.5 mg tablet See Rx Instructions .Route 05/28/23 .COMPLEX #30 tabs atorvastatin 40 mg tablet See Rx Instructions .Route 05/28/23 .COMPLEX #30 tabs cholecalciferol (vitamin D3) 25 See Rx Instructions .Route 05/28/23 mcg (1,000 unit) tablet .COMPLEX #90 tabs lisinopril 30 mg tablet See Rx Instructions .Route 05/28/23 .COMPLEX #30 tabs mirtazapine 15 mg tablet See Rx Instructions .Route 05/28/23 .COMPLEX #28 tabs pantoprazole 40 mg tablet,delayed See Rx Instructions .Route 05/28/23 release .COMPLEX #30 tabs trazodone 50 mg tablet See Rx Instructions .Route 05/28/23 .COMPLEX #30 tabs nystatin 100,000 unit/gram topical 1 applic topical TID sores in nose 06/10/23 ointment #30 grams nystatin 100,000 unit/mL oral 500,000 unit (5 mL) buccal DAILY 06/10/23 suspension thrush #473 mL Allergies Allergy/AdvReac Type Severity Reaction Status Date / Time No Known Allergies Allergy Verified 02/12/23 14:44 [facility] <DARY Temple - Last Filed: 06/16/23 14:36> [facility] Disclaimer: The information contained in this section may have been updated after the patient was seen, as this information can be updated by other users. Social History Smoking Status: Current every day smoker tobacco type: cigarettes packs per day: 1 alcohol intake: never substance use type: denies use current occupational status: retired Travel in the last 8 weeks: None household members: other housing: house <DARY Temple - Last Filed: 06/16/23 14:36> ROS Obtained: Yes Systems reviewed as appropriate & no additional complaints except as documented Physical Exam <DARY Temple - Last Filed: 06/16/23 14:36> General General appearance: alert and in no apparent distress Head Head exam: atraumatic and normal inspection Neck Neck exam: Present normal inspection, full ROM, trachea midline and lymphadenopathy Chest Chest inspection: Present normal inspection and symmetric chest wall rise Respiratory Respiratory exam: Present normal lung sounds bilaterally Cardiovascular Cardiovascular exam: Present normal rhythm, tachycardia, normal heart sounds, +S1 and +S2 Abdominal Exam Abdominal exam: Present soft; Absent tenderness Extremities Exam Extremities exam: Present normal inspection and full ROM Neurological Exam Neurological exam: Present alert and oriented X3 Psychiatric Psychiatric exam: Present normal affect and normal mood Other Other exam information: Examination of face reveals a large superficial necrotic area with irregular borders in the V2 distribution with erythema and edema involving almost the entirety of the right side of the face and involving the eye. The eye has injected conjunctive I with a purulent looking discharge. I do not see any vesicles on the scalp or areas of necrosis on the scalp. Patient also has blisters in the buccal area on the right side of the mouth and I am unable to appreciate them fully due to the inability of the patient to open her mouth wide enough to see her posterior pharynx. Remainder the skin exam is pink warm and dry Medical Decision Making <DARY Temple - Last Filed: 06/16/23 14:36> Medical Records Medical records reviewed: Yes I reviewed the patient's medical records. Jermaine Inquiry Pt receiving controlled substance: No Vital Signs: 06/12/23 17:28 06/12/23 17:52 06/12/23 20:32 Temperature 98.7 F 98.7 F Temperature Source Oral Oral Pulse Rate 104 H 106 H Pulse Rate [Left Radial] 107 H Respiratory Rate 22 22 Blood Pressure 98/61 L Blood Pressure [Left Arm] 113/61 Blood Pressure Mean [Left Arm] 78 Blood Pressure Source Automatic Cuff Blood Pressure Position Supine 02 Sat by Pulse Oximetry 91 L 93 L Oxygen Delivery Method Room Air Nasal Cannula Oxygen Flow Rate (LPM) 3 Lab Data Lab results reviewed: Yes I reviewed the patient's lab results. Lab Results 06/12/23 17:45: WBC 7.7, RBC 5.20, Hgb 16.1, Hct 49.7 H, MCV 95.6, MCH 30.9, MCHC 32.3, RDW 14.5, Plt Count 129 L, MPV 9.9, Neut % (Auto) 63.7, Lymph % (Auto) 27.7, [place] % (Auto) 6.8, Eos % (Auto) 0.6, Baso % (Auto) 1.2, Neut # (Auto) 4.9, Lymph # (Auto) 2.1, [place] # (Auto) 0.5, Eos # (Auto) 0.0, Baso # (Auto) 0.1, ESR 20, PT 10.5, INR 0.97, Sodium 137, Potassium 4.2, Chloride 100, Carbon Dioxide 29, Anion Gap 12.2, BUN 24 H, Creatinine 1.40 H, Estimated Creat Clear 39, Estimated GFR 36 L, Est GFR ( Amer) 43 L, Glucose 163 H, Calcium 9.5, Total Bilirubin 0.7, AST 38 H, ALT 31, Alkaline Phosphatase 145 H, C-Reactive Protein 157.4 H, Total Protein 7.6, Albumin 4.2, Globulin 3.4 H, Albumin/Globulin Ratio 1.2, Procalcitonin 0.180 06/12/23 17:45 06/12/23 17:45 Orders (Tests/Meds): ED MEDICATIONS Discontinued Medications Generic Name Dose Route Start Last Admin Trade Name Hermesq PRN Reason Stop Dose Admin Acetaminophen 1,000 mg 06/12/23 17:29 Acetaminophen 1,000mg/100ml Vial IV 06/12/23 17:30 ONCE ONE Hydromorphone HCl 1 mg 06/12/23 18:05 06/12/23 18:36 Hydromorphone 2mg/Ml Syringe IV 06/12/23 18:06 1 mg ONCE ONE Administration Lactated Ringer's 1,000 mls @ 999 mls/hr 06/12/23 17:29 06/12/23 18:36 Lactated Ringer's 1000 Ml Bag IV 06/12/23 18:29 999 mls/hr .Q1H1M ONE Administration Acyclovir Sodium 700 mg/ 250 mls @ 250 mls/hr 06/12/23 17:45 06/12/23 18:35 Sodium Chloride IV 06/19/23 17:44 250 mls/hr Q8H GALINA Administration Ketorolac Tromethamine 15 mg 06/12/23 17:29 Ketorolac 30mg/Ml Vial IV 06/12/23 17:30 ONCE ONE ORDERS Category Date Time Status XR chest portable Stat Exams 06/12/23 17:44 Completed CBC w/Auto Diff [Complete Blood Count Auto Diff] Stat Lab 03/21/24 17:45 Completed CMP [Comprehensive Metabolic Panel] Stat Lab 06/12/23 17:45 Completed CRP [C-Reactive Protein] Stat Lab 06/12/23 17:45 Completed Erythrocyte Sedimentation Rate Stat Lab 06/12/23 17:45 Completed INR [Prothrombin Time INR] Stat Lab 06/12/23 17:45 Completed Procalcitonin Stat Lab 06/12/23 17:45 Completed Blood Culture Stat Micro 06/12/23 17:45 Results Medical Decision Narrative: In summary patient is a 83-year-old female who presents to the emergency department for evaluation of initially a rash on her face. Patient is normotensive tachycardic satting at 91% on room air upon arrival, afebrile. Physical exam shows a necrotic area along the V2 distribution of the right side of face with blisters in the mouth conjunctival injection with purulent discharge from the right eye along with subjective vision loss in the right eye. Differential diagnosis includes shingles with ophthalmic involvement versus secondary bacterial infection of the skin and eye. Initial workup will be conducted with hematologic labs. Initial interventions include acyclovir IV Toradol and acetaminophen and crystalloid infusion. Given that the patient has reporting vision loss and the significant skin and soft tissue involvement we discussed patient management with the [facility] Department of ophthalmology. They have graciously accepted the patient in transfer to their ER. At the time of transfer her labs are pending but will share with them when available. <Gissel Wright, DO - Last Filed: 06/16/23 14:44> Vital Signs: 06/12/23 17:28 06/12/23 17:52 06/12/23 20:32 Temperature 98.7 F 98.7 F Temperature Source Oral Oral Pulse Rate 104 H 106 H Pulse Rate [Left Radial] 107 H Respiratory Rate 22 22 Blood Pressure 98/61 L Blood Pressure [Left Arm] 113/61 Blood Pressure Mean [Left Arm] 78 Blood Pressure Source Automatic Cuff Blood Pressure Position Supine 02 Sat by Pulse Oximetry 91 L 93 L Oxygen Delivery Method Room Air Nasal Cannula Oxygen Flow Rate (LPM) 3 Lab Data Lab results reviewed: Yes I reviewed the patient's lab results. Lab Results 06/12/23 17:45: WBC 7.7, RBC 5.20, Hgb 16.1, Hct 49.7 H, MCV 95.6, MCH 30.9, MCHC 32.3, RDW 14.5, Plt Count 129 L, MPV 9.9, Neut % (Auto) 63.7, Lymph % (Auto) 27.7, [place] % (Auto) 6.8, Eos % (Auto) 0.6, Baso % (Auto) 1.2, Neut # (Auto) 4.9, Lymph # (Auto) 2.1, [place] # (Auto) 0.5, Eos # (Auto) 0.0, Baso # (Auto) 0.1, ESR 20, PT 10.5, INR 0.97, Sodium 137, Potassium 4.2, Chloride 100, Carbon Dioxide 29, Anion Gap 12.2, BUN 24 H, Creatinine 1.40 H, Estimated Creat Clear 39, Estimated GFR 36 L, Est GFR ( Amer) 43 L, Glucose 163 H, Calcium 9.5, Total Bilirubin 0.7, AST 38 H, ALT 31, Alkaline Phosphatase 145 H, C-Reactive Protein 157.4 H, Total Protein 7.6, Albumin 4.2, Globulin 3.4 H, Albumin/Globulin Ratio 1.2, Procalcitonin 0.180 Orders (Tests/Meds): ED MEDICATIONS Discontinued Medications Generic Name Dose Route Start Last Admin Trade Name Freq PRN Reason Stop Dose Admin Acetaminophen 1,000 mg 06/12/23 17:29 Acetaminophen 1,000mg/100ml Vial IV 06/12/23 17:30 ONCE ONE Hydromorphone HCl 1 mg 06/12/23 18:05 06/12/23 18:36 Hydromorphone 2mg/Ml Syringe IV 06/12/23 18:06 1 mg ONCE ONE Administration Lactated Ringer's 1,000 mls @ 999 mls/hr 06/12/23 17:29 06/12/23 18:36 Lactated Ringer's 1000 Ml Bag IV 06/12/23 18:29 999 mls/hr .Q1H1M ONE Administration Acyclovir Sodium 700 mg/ 250 mls @ 250 mls/hr 06/12/23 17:45 06/12/23 18:35 Sodium Chloride IV 06/19/23 17:44 250 mls/hr Q8H GALINA Administration Ketorolac Tromethamine 15 mg 06/12/23 17:29 Ketorolac 30mg/Ml Vial IV 06/12/23 17:30 ONCE ONE ORDERS Category Date Time Status XR chest portable Stat Exams 06/12/23 17:44 Completed CBC w/Auto Diff [Complete Blood Count Auto Diff] Stat Lab 06/12/23 17:45 Completed CMP [Comprehensive Metabolic Panel] Stat Lab 06/12/23 17:45 Completed CRP [C-Reactive Protein] Stat Lab 06/12/23 17:45 Completed Erythrocyte Sedimentation Rate Stat Lab 06/12/23 17:45 Completed INR [Prothrombin Time INR] Stat Lab 06/12/23 17:45 Completed Procalcitonin Stat Lab 06/12/23 17:45 Completed Blood Culture Stat Micro 06/12/23 17:45 Results Medical Decision Narrative: In summary patient is a 83-year-old female who presents to the emergency department for evaluation of initially a rash on her face. Patient is normotensive tachycardic satting at 91% on room air upon arrival, afebrile. Physical exam shows a necrotic area along the V2 distribution of the right side of face with blisters in the mouth conjunctival injection with purulent discharge from the right eye along with subjective vision loss in the right eye. Differential diagnosis includes shingles with ophthalmic involvement versus secondary bacterial infection of the skin and eye. Initial workup will be conducted with hematologic labs. Initial interventions include acyclovir IV Toradol and acetaminophen and crystalloid infusion. Given that the patient has reporting vision loss and the significant skin and soft tissue involvement we discussed patient management with the [facility] Department of ophthalmology. They have graciously accepted the patient in transfer to their ER. At the time of transfer her labs are pending but will share with them when available. DO Kyle: I had an interactive discussion with Dr. Lexy Gleason with ophthalmology at the [facility] regarding this patient, who advised that she can be accepted to [facility] for evaluation management with concern for herpes zoster ophthalmicus. ALS transport was arranged, and patient was transported in stable condition. Critical Care <DARY Temple - Last Filed: 06/16/23 14:36> Critical Care Time Critical Care Time: No
--- NOTE | 2023-06-12 17:44 | XR_ITS ---
PROCEDURE INFORMATION: Exam: XR Chest Exam date and time: 06/12/2023 5:51 PM Age: 83 years old Clinical indication: Shortness of breath; Additional info: SOA TECHNIQUE: Imaging protocol: Radiologic exam of the chest. Views: 1 view. COMPARISON: CT CHEST W CON 02/25/2020 9:18 AM FINDINGS: Lungs: Scattered small calcified granulomas in both lungs. No acute infiltrate evident. Small calcified bilateral hilar lymph nodes compatible with old granulomatous disease. Pleural spaces: Unremarkable. No pleural effusion. No pneumothorax. Heart/Mediastinum: Unremarkable. No cardiomegaly. Bones/joints: Unremarkable. IMPRESSION: No acute disease
--- NOTE | 2023-06-12 17:46 | PC.NURSE ---
Called [facility] per Dr Wright to speak with Opthamology about this pt. [facility] advised that they would call us back
[2023-06-12 17:52] VITALS: PULSE 104; O2SAT 93
[2023-06-12 17:58] LABS: Basophils # 0.1 K/mm3 (0-0.2); Basophils % 1.2 % (0.1-2.0); Eosinophils % 0.6 % (0.1-12.0); Hematocrit 49.7 % (37.0-47.0); Hemoglobin 16.1 g/dL (12.2-16.2); Lymphocytes # 2.1 K/mm3 (0.7-4.5); Lymphocytes % 27.7 % (10-50); Mean Corpuscular HGB Conc 32.3 g/dL (31.8-35.4); Mean Corpuscular Hemoglobin 30.9 pg (27.0-31.2); Mean Corpuscular Volume 95.6 fl (81-99); Mean Platelet Volume 9.9 fl (7.4-10.4); Monocytes # 0.5 K/mm3 (0.1-1.0); Monocytes % 6.8 % (1.7-9.3); Neutrophils # 4.9 K/mm3 (1.8-7.8); Neutrophils % 63.7 % (37.0-80.0); Platelet Count 129 K/mm3 (142-424); Red Cell Distribution Width 14.5 % (11.5-17.5); White Blood Count 7.7 K/mm3 (4.8-10.8)
[2023-06-12 18:11] LABS: INR 0.97 (0.9-1.1); Prothrombin Time 10.5 seconds (10.1-12.5)
[2023-06-12 18:25] LABS: Erythrocyte Sedimentation Rate 20 mm/hr (0-30)
[2023-06-12] MEDS: ACYCLOVIR SODIUM 700 MG in 0.9 % SODIUM CHLORIDE 250 ML 250 MG IV (18:35)
[2023-06-12 18:36] LABS: C-Reactive Protein 157.4 mg/L (0-4)
[2023-06-12] MEDS: LACTATED RINGERS 1000ML 1,000 ML 999 ML IV (18:36)
[2023-06-12] MEDS: HYDROMORPHONE 2MG/ML SYRINGE 1 MG IV (18:36)
--- NOTE | 2023-06-12 18:45 | PC.NURSE ---
report called to [facility].
--- NOTE | 2023-06-12 18:48 | PC.NURSE ---
pt on 2lnc. saturation 93%
[2023-06-12 18:53] LABS: Chloride 100 mmol/L (98-107)
[2023-06-12 18:54] LABS: Potassium 4.2 mmoL/L (3.5-5.1); Sodium 137 mmol/L (136-145)
[2023-06-12 18:56] LABS: Alanine Aminotransferase 31 U/L (12-78); Alkaline Phosphatase 145 U/L (38-126); Aspartate Amino Transferase 38 U/L (14-36); Bilirubin,Total 0.7 mg/dl (0.2-1.3); Blood Urea Nitrogen 24 mg/dl (7-17); Creatinine Clearance Estimated 39 mL/min (50-200); Estimated Glomerular Filt Rate 36 ml/min (>60); GFR (African American) 43 ML/MIN (>60)
[2023-06-12 18:57] LABS: Albumin Level 4.2 g/dl (3.5-5.0); Albumin/Globulin Ratio 1.2 (1.1-1.8); Anion Gap 12.2 mEq/L (5-15); Calcium 9.5 mg/dl (8.4-10.2); Carbon Dioxide 29 mmol/L (22.0-30.0); Globulin 3.4 g/dL (1.3-3.2); Glucose 163 mg/dl (74-100); Total Protein,Serum 7.6 g/dl (6.3-8.2)
--- NOTE | 2023-06-12 19:18 | PC.NURSE ---
Alfreda called EMS about transfer of pt to for further care. XAVIER
--- NOTE | 2023-06-12 20:01 | PC.NURSE ---
Pt placed in the bed by myself and Alfreda, per request by daughter. Pt stated she was uncomfortable in the wheelchair. CR
[2023-06-12 20:32] VITALS: BP 98/61; PULSE 106; RESP 22; TEMP 37.1; O2SAT 90
--- NOTE | 2023-06-20 10:18 | PC.NURSE ---
faxed blood culture results to [phone] to where pt was admitted at .
== END 2023-06-12 20:20 | disposition short-term general hospital (02) ==
PROVIDERS: Physician Assistant; Emergency Provider Emergency Medicine; PCP Internal Medicine
DX: B02.39 Other herpes zoster eye disease (principal); F17.210 Nicotine dependence, cigarettes, uncomplicated; R00.0 Tachycardia, unspecified; H53.8 Other visual disturbances
CPT/HCPCS: 71045; 80053; 84145; 85025; 85610; 85651; 86140; 87040; 96361; 96374; 96375; 99285

== ENCOUNTER 2024-04-12 10:17 | Inpatient (IN) | payer MEDICARE, SELFPAY ==
[2024-04-12] VITALS (20 sets, daily range): BP systolic 107–146; BP diastolic 58–73; PULSE 78–95; RESP 18–28; TEMP 36.4–37.1; O2SAT 89–98; BMI 29.9
[2024-04-12 10:38] LABS: Lactate Venous 1.3 mmol/L (0.4-2.0); VBG Base Excess -3.7 mmol/L (-2.4-2.3); VBG HCO3 21.1 mmol/L (23-30); VBG Oxygen Saturation 98.6 % (50-70); VBG PCO2 35.1 mmol/L (35-51); VBG PO2 141.6 mmol/L (28-40); VBG Total CO2 22.2 mmol/L (23-27)
[2024-04-12 11:09] LABS: Adenovirus,PCR Not Detected (NotDetected); Bordetella Pertussis Not Detected (NotDetected); Chlamydophila Pneumoniae, PCR Not Detected (NotDetected); Coronavirus 19, PCR Not Detected (NotDetected); Coronavirus 229E Not Detected (NotDetected); Coronavirus NL63 Not Detected (NotDetected); Coronavirus OC43 Not Detected (NotDetected); Coronovirus HKU1,PCR Not Detected (NotDetected); Human Metapneumovirus Not Detected (NotDetected); Influenza A, PCR Not Detected (NotDetected); Influenza AH1, 2009 Not Detected (NotDetected); Influenza AH1, PCR Not Detected (NotDetected); Influenza AH3,PCR Not Detected (NotDetected); Influenza B, PCR Not Detected (NotDetected); Mycoplasma Pneumoniae, PCR Not Detected (NotDetected); Parainfluenza 1, PCR Not Detected (NotDetected); Parainfluenza 2, PCR Not Detected (NotDetected); Parainfluenza 3, PCR Not Detected (NotDetected); Parainfluenza 4, PCR Not Detected (NotDetected); Respiratory Syncytial Virus Not Detected (NotDetected); Rhinovirus/Enterovirus Not Detected (NotDetected)
[2024-04-12 11:10] LABS: Basophils % 0.3 % (0.1-2.0); Eosinophils % 0.3 % (0.1-12.0); Hematocrit 35.8 % (37.0-47.0); Hemoglobin 11.3 g/dL (12.2-16.2); Lymphocytes # 2.5 K/mm3 (0.7-4.5); Lymphocytes % 18.1 % (10-50); Mean Corpuscular HGB Conc 31.6 g/dL (31.8-35.4); Mean Corpuscular Hemoglobin 27.8 pg (27.0-31.2); Mean Platelet Volume 11.4 fl (7.4-10.4); Monocytes # 0.9 K/mm3 (0.1-1.0); Monocytes % 6.6 % (1.7-9.3); Neutrophils # 10.3 K/mm3 (1.8-7.8); Neutrophils % 74.1 % (37.0-80.0); Platelet Count 165 K/mm3 (142-424); Red Blood Count 4.07 M/mm3 (4.20-5.40); Red Cell Distribution Width 14.8 % (11.5-17.5); White Blood Count 13.8 K/mm3 (4.8-10.8)
[2024-04-12 11:16] LABS: Albumin Level 3.5 g/dl (3.5-5.0); Chloride 103 mmol/L (98-107); Potassium 4.3 mmoL/L (3.5-5.1); Sodium 135 mmol/L (136-145)
--- NOTE | 2024-04-12 11:17 | HMH.EDCP ---
Discharge Plan Disposition Patient Disposition: Admitted Condition: Good Clinical Impressions Clinical Impression: Acute exacerbation of chronic obstructive pulmonary disease, Acute on chronic respiratory failure, KASSANDRA (acute kidney injury), Pneumonia Discharge ED Provider: Gissel Wright HPI General Chief Complaint: Shortness of Breath/Dyspnea Stated Complaint: SHORTNESS OF BREATH Time Seen by Provider: 04/12/24 11:00 Mode of Arrival: EMS Source of Information: Patient Limitations: No Limitations Description of Symptoms (Recalled from ER Triage Doc. by RN): c/o cough congestion H/X COPD History of Present Illness HPI narrative: This patient is an 84-year-old female with a history of COPD chronically on 2 L nasal cannula chronically, hypothyroidism, prior CVA, type 2 diabetes, hypertension, and immobility presenting from long term with concern for cough and increased work of breathing. According to the patient, she is been sick for about a week with cough and shortness of breath. She denies any abdominal pain, vomiting, chest pain, or other concerns. She states that is just her lungs that are bothering her. According to nursing facility report, they state that the patient was hypoxic on her 2 L nasal cannula and they could not get her above 90% without bumping it up to 3. Related Data Home Medications ?Medication ?Instructions ?Recorded ?Confirmed acetaminophen 500 mg tablet 500 mg PO Q8HP PRN Mild Pain 04/12/24 04/12/24 (Scale Score 1-4) amlodipine 10 mg tablet 10 mg PO DAILY 04/12/24 04/12/24 aspirin 81 mg chewable tablet 81 mg PO DAILY 04/12/24 04/12/24 atorvastatin 20 mg tablet 20 mg PO HS 04/12/24 04/12/24 fluticasone fur. 200 mcg-umeclid 1 ea inhalation DAILY 04/12/24 04/12/24 62.5 mcg-vilant 25 mcg inhalat.powder (Trelegy Ellipta) glipizide 10 mg tablet 10 mg PO DAILY 04/12/24 04/12/24 insulin glargine 100 unit/mL (3 7 unit SQ DAILY 04/12/24 04/12/24 mL) subcutaneous pen (Lantus Solostar U-100 Insulin) insulin glargine 100 unit/mL (3 14 unit SQ HS 04/12/24 04/12/24 mL) subcutaneous pen (Lantus Solostar U-100 Insulin) insulin regular human 100 unit/mL See Rx Instructions .Route .COMPLEX 04/12/24 04/12/24 injection solution (Humulin R Regular U-100 Insulin) ipratropium 0.5 mg-albuterol 3 mg 3 ml inhalation QID 04/12/24 04/12/24 (2.5 mg base)/3 mL nebulization soln levothyroxine 25 mcg tablet 25 mcg PO DAILY 04/12/24 04/12/24 melatonin 3 mg tablet 6 mg PO HSP PRN Insomnia 04/12/24 04/12/24 metoprolol succinate 25 mg 12.5 mg PO DAILY 04/12/24 04/12/24 tablet,extended release 24 hr mirtazapine 15 mg tablet 15 mg PO HS 04/12/24 04/12/24 multivitamin 1 tab PO DAILY 04/12/24 04/12/24 pantoprazole 40 mg tablet,delayed 40 mg PO DAILY 04/12/24 04/12/24 release peg 400-propylene glycol (PF) 0.4 1 drp Eye-Right BID 04/12/24 04/12/24 %-0.3 % eye drops in a dropperette (Systane (PF)) polyethylene glycol 3350 17 17 g PO DAILY 04/12/24 04/12/24 gram/dose oral powder sennosides 8.6 mg tablet (senna) 17.2 mg PO HS 04/12/24 04/12/24 trazodone 50 mg tablet 50 mg PO HS 04/12/24 04/12/24 Previous Rx's ?Medication ?Instructions ?Recorded albuterol sulfate 90 mcg/actuation 2 puffs inhalation Q4HP PRN 11/05/18 aerosol inhaler Shortness Of Breath Or Wheezing #1 inh gabapentin 300 mg capsule 300 mg PO TID 30 days #90 caps 01/19/24 Allergies Allergy/AdvReac Type Severity Reaction Status Date / Time No Known Allergies Allergy Verified 01/06/24 13:24 [facility] Disclaimer: The information contained in this section may have been updated after the patient was seen, as this information can be updated by other users. Medical History CVA (cerebral vascular accident) COPD (chronic obstructive pulmonary disease) Overweight (BMI 25.0-29.9) Type II diabetes mellitus Depression Hypertension Hypothyroidism Declining mobility Herpes zoster Social History Smoking Status: Current every day smoker tobacco type: cigarettes packs per day: 1 alcohol intake: never substance use type: denies use current occupational status: retired Travel in the last 8 weeks: None household members: other housing: house Other Medical History Have you received the Flu Vaccine for this season: Yes Have you received the Pneumonia Vaccine: No ROS Obtained: Yes All systems reviewed & no additional complaints except as documented Physical Exam General General appearance: alert and obese Head Head exam: atraumatic and normocephalic Eye Eye exam: Present normal appearance, PERRL and EOMI ENT ENT exam: Present normal exam, normal oropharynx, mucous membranes moist and normal external ear exam Neck Neck exam: Present normal inspection, full ROM and trachea midline; Absent tenderness Chest Chest inspection: Present normal inspection and symmetric chest wall rise; Absent tenderness Respiratory Respiratory exam: Present respiratory distress, wheezes, accessory muscle use and prolonged expiratory phase; Absent stridor Cardiovascular Cardiovascular exam: Present normal rhythm and tachycardia Abdominal Exam Abdominal exam: Present soft; Absent distention, tenderness or guarding Extremities Exam Extremities exam: Present normal inspection, full ROM and normal capillary refill; Absent tenderness or edema Back Exam Back exam: Present normal inspection and full ROM; Absent tenderness Neurological Exam Neurological exam: Present alert, oriented X3, CN II-XII intact and normal gait; Absent motor sensory deficit Psychiatric Psychiatric exam: Present normal affect and normal mood Skin Skin exam: Present warm and dry HEART Score HEART Score HEART Score assessment performed?: Yes History (anamnesis): Slightly suspicious ECG: Normal Age: >65 years Risk factors: 3 or more risk factors Troponin: </= normal limit HEART Score: 4 Critical Care Critical Care Time Critical Care Time: Yes Attestation: On 04/12/24, the high probability of a clinically significant, sudden or life threatening deterioration of the following system(s) required my full and direct attention, intervention and personal management. The time I documented below is in addition to time spent performing reported procedures but includes the following listed in this critical care notation. Total Time Total Critical Care Time: 45 Medical Decision Making Jermaine Inquiry Pt receiving controlled substance: No Vital Signs Vital Signs: 04/12/24 10:22 04/12/24 10:23 04/12/24 10:30 Temperature 98.7 F Temperature Source Oral Pulse Rate 85 Pulse Rate [Right Radial] 88 Respiratory Rate 20 25 H Blood Pressure 139/72 Blood Pressure [Right Radial Artery] 142/71 H Blood Pressure Mean [Right Radial Artery] 94 02 Sat by Pulse Oximetry 93 L 93 L Oxygen Delivery Method Nasal Cannula Oxygen Flow Rate (LPM) 3 04/12/24 10:45 04/12/24 11:00 04/12/24 11:15 Temperature Temperature Source Pulse Rate 84 Pulse Rate [Right Radial] Respiratory Rate 25 H 24 22 Blood Pressure 133/68 Blood Pressure [Right Radial Artery] Blood Pressure Mean [Right Radial Artery] 02 Sat by Pulse Oximetry 94 L Oxygen Delivery Method Oxygen Flow Rate (LPM) 04/12/24 11:30 04/12/24 11:45 04/12/24 12:00 Temperature Temperature Source Pulse Rate 82 Pulse Rate [Right Radial] Respiratory Rate 22 28 H 20 Blood Pressure 136/70 134/71 Blood Pressure [Right Radial Artery] Blood Pressure Mean [Right Radial Artery] 02 Sat by Pulse Oximetry 98 Oxygen Delivery Method Oxygen Flow Rate (LPM) 04/12/24 12:15 04/12/24 12:30 04/12/24 12:45 Temperature Temperature Source Pulse Rate 86 87 89 Pulse Rate [Right Radial] Respiratory Rate 19 20 23 Blood Pressure 134/67 Blood Pressure [Right Radial Artery] Blood Pressure Mean [Right Radial Artery] 02 Sat by Pulse Oximetry 91 L 89 L 89 L Oxygen Delivery Method Oxygen Flow Rate (LPM) 04/12/24 13:00 04/12/24 13:15 04/12/24 13:33 Temperature Temperature Source Pulse Rate 95 H 90 95 H Pulse Rate [Right Radial] Respiratory Rate 25 H 20 28 H Blood Pressure 138/70 Blood Pressure [Right Radial Artery] Blood Pressure Mean [Right Radial Artery] 02 Sat by Pulse Oximetry 92 L 93 L 89 L Oxygen Delivery Method Oxygen Flow Rate (LPM) 04/12/24 14:33 04/12/24 14:48 04/12/24 15:00 Temperature 98.3 F Temperature Source Oral Pulse Rate 88 Pulse Rate [Right Radial] Respiratory Rate 18 Blood Pressure 121/59 L Blood Pressure [Right Radial Artery] Blood Pressure Mean [Right Radial Artery] 02 Sat by Pulse Oximetry Oxygen Delivery Method Nasal Cannula Nasal Cannula Nasal Cannula Oxygen Flow Rate (LPM) 4 4 4 Lab Data Labs: Lab Results 04/12/24 10:30: WBC 13.8 H, RBC 4.07 L, Hgb 11.3 L, Hct 35.8 L, MCV 88.0, MCH 27.8, MCHC 31.6 L, RDW 14.8, Plt Count 165, MPV 11.4 H, Neut % (Auto) 74.1, Lymph % (Auto) 18.1, Amador % (Auto) 6.6, Eos % (Auto) 0.3, Baso % (Auto) 0.3, Neut # (Auto) 10.3 H, Lymph # (Auto) 2.5, Amador # (Auto) 0.9, Eos # (Auto) 0.0, Baso # (Auto) 0.0, D-Dimer 1.18 H, VBG pH 7.40, VBG pCO2 35.1, VBG pO2 141.6 H, VBG HCO3 21.1 L, VBG Total CO2 22.2 L, VBG O2 Saturation 98.6 H, VBG Base Excess -3.7 L, VBG Lactic Acid 1.3, Sodium 135 L, Potassium 4.3, Chloride 103, Carbon Dioxide 24, Anion Gap 12.3, BUN 25 H, Creatinine 1.60 H, Estimated Creat Clear 34, Estimated GFR 31 L, Est GFR ( Amer) 37 L, Glucose 193 H, Calcium 8.9, Total Bilirubin 1.1, AST 39 H, ALT 36, Alkaline Phosphatase 218 H, Troponin I < 0.01, C-Reactive Protein 229.8 H, NT-Pro-B Natriuret Pep 388, Total Protein 6.8, Albumin 3.5, Globulin 3.3 H, Albumin/Globulin Ratio 1.1, Procalcitonin 0.241, TSH 2.93, Thyroxine (T4) 9.4, Chlamy pneumoniae PCR Not detected, Adenovirus (PCR) Not detected, B. pertussis DNA (PCR) Not detected, Coronavirus OC43 (PCR) Not detected, Coronavirus HKU1 (PCR) Not detected, Coronavirus 229E (PCR) Not detected, SARS-CoV-2 (PCR) Not detected, Coronavirus NL63 (PCR) Not detected, Human Metapneumovir PCR Not detected, Influenza A (H1) PCR Not detected, Influ A (H1N1/09) PCR Not detected, Influenza A (H3) PCR Not detected, Influenza Type A (PCR) Not detected, Influenza Type B (PCR) Not detected, M. pneumoniae (PCR) Not detected, Parainfluenza 1 (PCR) Not detected, Parainfluenza 2 (PCR) Not detected, Parainfluenza 3 (PCR) Not detected, Parainfluenza 4 (PCR) Not detected, RSV (PCR) Not detected, Entero/Rhino (PCR) Not detected 04/12/24 10:30 04/12/24 10:30 Response Orders (Tests/Meds): ED MEDICATIONS Discontinued Medications Generic Name Dose Route Start Last Admin Trade Name Freq PRN Reason Stop Dose Admin Albuterol/Ipratropium 9 ml 04/12/24 11:00 04/12/24 11:33 Ipratropium/Albuterol 3 Ml Neb IH 04/12/24 11:01 9 ml ONCE ONE Administration Magnesium Sulfate 2 gm in 50 mls @ 50 mls/hr 04/12/24 11:00 04/12/24 11:32 Magnesium Sulfate 2gm/50ml Premix IV 04/12/24 11:59 50 mls/hr ONCE ONE Administration Ceftriaxone Sodium 2 gm/ 100 mls @ 200 mls/hr 04/12/24 13:41 04/12/24 14:17 Sodium Chloride IV 04/12/24 14:10 200 mls/hr ONCE ONE Administration Azithromycin 500 mg/ Sodium 250 mls @ 250 mls/hr 04/12/24 13:41 04/12/24 14:18 Chloride IV 04/12/24 13:42 250 mls/hr ONCE ONE Administration Iopamidol 60 ml 04/12/24 13:27 04/12/24 13:34 Iopamidol-370 (76%);100ml Bottle IV 04/12/24 13:28 60 ml ONCE ONE Administration Methylprednisolone Sodium Succinate 125 mg 04/12/24 11:00 04/12/24 11:32 Methylprednisolone Sod Succ 125mg Vial IV 04/12/24 11:01 125 mg ONCE ONE Administration ORDERS Category Date Time Status CT angio chest PE protocol Stat Cat Scan 04/12/24 12:18 Completed BNP [NT Pro Brain Natriuretic Pep.] Stat Lab 04/12/24 10:30 Completed CBC w/Auto Diff [Complete Blood Count Auto Diff] Stat Lab 04/12/24 10:30 Completed CMP [Comprehensive Metabolic Panel] Stat Lab 04/12/24 10:30 Completed CRP [C-Reactive Protein] Stat Lab 04/12/24 10:30 Completed D-Dimer Stat Lab 04/12/24 10:30 Completed Full Resp Panel w/COVID (H) Routine Lab 04/12/24 10:30 Completed Procalcitonin Stat Lab 04/12/24 10:30 Completed T4 (Thyroxine) Stat Lab 04/12/24 10:30 Completed TSH [Thyroid Stimulating Hormone] Stat Lab 04/12/24 10:30 Completed Trop I [Troponin I] Stat Lab 04/12/24 10:30 Completed Blood Culture Stat Micro 04/12/24 11:45 Received VBG [Venous Blood Gas] Stat RT 04/12/24 10:30 Completed ECG Data Tracing #1: Attestation: I reviewed this ECG and interpreted as documented below: ECG Narrative: Normal sinus rhythm with a ventricular rate of [address] elevations concerning for STEMI. Some motion artifact degrades study. Normal intervals. ECG initial impression date: 04/12/24 ECG initial impression time: 11:43 MDM Narrative Medical Decision Narrative: In summary, this patient is a 84-year-old female presenting to the Emergency Department for evaluation of cough and shortness of breath. Differential diagnoses considered include but are not limited to pneumonia, COPD exacerbation, respiratory failure, CHF, PE. Ruling out the most morbid conditions drove assessment. It should be noted patient's history includes COPD which is not at goal therapy. This complicates all aspects of care by increasing patient's risk for morbidity. I reviewed patient's past medical records and noted previous evaluation 05/2023 for shingles on her face where she was transferred to . She did spend a long time they are recovering. On exam, the patient has hacking cough with coarse wheezes and rhonchi noted bilaterally. She is in mild respiratory distress with tachypnea, accessory muscle use, and prolonged expiratory phase. Workup included broad lab evaluation to evaluate for infectious, metabolic, cardiac etiologies of her symptoms as well as chest x-ray and EKG. Given she is older than 50 with pulmonary symptoms, I cannot exclude PE using PERC criteria. I did send a D-dimer.. EKG obtained is reassuring. For the patient's respiratory distress in the setting of COPD, I gave her DuoNebs x 3 as well as IV methylprednisolone and IV magnesium. Labs were obtained which demonstrated leukocytosis. Patient also has a very mild KASSANDRA. AST is mildly elevated but not overtly concerning. D-dimer obtained was elevated, so I decided to order a CT PE protocol. I independently interpreted CT scan prior to the radiologist read and noted no obvious large PE, however the patient does have pneumonia. Please see their read for final interpretation. On reassessment, patient had minimal improvement after administration of interventions above. She continues to require increased supplemental oxygen, now on 4 L nasal cannula from her baseline of 2 L nasal cannula. She also has increased work of breathing still. She is moving better air, however. Given pneumonia, I started the patient on IV Rocephin and azithromycin. I did not give sepsis bolus, as she has respiratory failure and volume overload could be detrimental to her. At this time, I feel she stable for admission for further management of acute on chronic respiratory failure, COPD exacerbation, pneumonia. Patient was admitted in stable condition after an interactive discussion with the hospitalist
[2024-04-12 11:18] LABS: Alanine Aminotransferase 36 U/L (12-78); Anion Gap 12.3 mEq/L (5-15); Aspartate Amino Transferase 39 U/L (14-36); Blood Urea Nitrogen 25 mg/dl (7-17); Carbon Dioxide 24 mmol/L (22.0-30.0); Creatinine Clearance Estimated 34 mL/min (50-200); Estimated Glomerular Filt Rate 31 ml/min (>60); GFR (African American) 37 ML/MIN (>60)
[2024-04-12 11:19] LABS: Albumin/Globulin Ratio 1.1 (1.1-1.8); Alkaline Phosphatase 218 U/L (38-126); Bilirubin,Total 1.1 mg/dl (0.2-1.3); Calcium 8.9 mg/dl (8.4-10.2); Globulin 3.3 g/dL (1.3-3.2); Glucose 193 mg/dl (74-100); Total Protein,Serum 6.8 g/dl (6.3-8.2)
[2024-04-12 11:24] LABS: C-Reactive Protein 229.8 mg/L (0-4)
[2024-04-12 11:31] LABS: NT Pro Brain Natriuretic Pep. 388 pg/mL (0-450)
[2024-04-12] MEDS: METHYLPREDNISOLONE SOD SUCC 125MG VIAL 125 MG IV (11:32)
[2024-04-12] MEDS: MAGNESIUM SULFATE IN WATER 2 GM/50 ML PIGGYBACK IV (11:32)
[2024-04-12] MEDS: IPRATROPIUM/ALBUTEROL 3 ML NEB 9 ML IH (11:33)
[2024-04-12 11:38] LABS: T4 (Thyroxine) 9.4 ug/dl (5.53-11.0)
--- NOTE | 2024-04-12 11:41 | ECG_ITS ---
APPROVED REPORT Exam: Resting ECG HR:84 bpm ECG Measurements Heart Rate 84 AXES IL 152 P 53 QRSd 88 QRS 28 QT 346 T 42 QTc 386 Conclusion SINUS RHYTHM NORMAL ECG Electronically signed by : ALDAIR AWAN, 04/13/2024 16:01:26
[2024-04-12 11:49] LABS: Troponin I < 0.01 ng/ml (0.00-0.034)
[2024-04-12 11:52] LABS: Thyroid Stimulating Hormone 2.93 uIU/mL (0.465-4.68)
[2024-04-12 11:55] LABS: D-Dimer 1.18 ug/mL (0.0-0.5)
[2024-04-12 12:18] LABS: Procalcitonin 0.241 ng/mL (0.0-2.0)
--- NOTE | 2024-04-12 12:18 | CT_ITS ---
FINAL REPORT TECHNIQUE: The patient was injected with IV contrast. Axial images were obtained through the chest in a PE protocol. 3-D reconstruction images were also performed. Individualized dose reduction techniques using automated exposure control or adjustment of the MA and/or KV according to patient's size were employed. CLINICAL HISTORY: SOA, resp failure, elevated dimer COMPARISON: None FINDINGS: Mediastinal vasculature is adequately opacified. No pulmonary artery filling defects are identified to suggest PE. There is no aortic dissection. There is no axillary adenopathy. There is moderate size mediastinal adenopathy present, measuring up to 1.8 cm. There are densely calcified subcarinal lymph nodes present as well. Prevascular adenopathy is present measuring up to 1.8 cm in size. The heart size is normal. There is no pericardial or pleural effusion. Limited images of the upper abdomen demonstrate calcified granulomas present in the spleen.. Dense airspace infiltrates are present predominantly in the upper lobes, that may represent acute multifocal pneumonia. IMPRESSION: No pulmonary embolus or dissection. Mediastinal adenopathy as described, likely reactive. Dense airspace infiltrates are present predominantly in the upper lobes, that may represent acute multifocal pneumonia. Reviewed, Interpreted and Dictated by Jeremy Clayton MD Transcribed by Angelica Clark Authenticated and [facility]
--- NOTE | 2024-04-12 12:50 | HMH.ITSTN ---
Iv near left wrist. When I flushed iv caused to much pain for patient. Unable to use that Iv for contrast studies due to injector. Spoke with ER nurse and she gonna get an iv in ac.
--- NOTE | 2024-04-12 13:16 | PC.NURSE ---
transported to ct scan via stretcher and international trade analyst
[2024-04-12] MEDS: IOPAMIDOL-370 (76%);100ML BOTTLE 60 ML IV (13:34)
[2024-04-12] MEDS: CEFTRIAXONE SODIUM 2 GM in 0.9 % SODIUM CHLORIDE 100 ML IV (14:17)
[2024-04-12] MEDS: AZITHROMYCIN 500 MG in 0.9 % SODIUM CHLORIDE 250 ML 250 MG IV (14:18)
--- NOTE | 2024-04-12 14:25 | PC.NURSE ---
spoke with [facility] for bed assignment
--- NOTE | 2024-04-12 15:35 | PC.NURSE ---
arrived by stretcher from ED
--- NOTE | 2024-04-12 15:54 | P.CONPHA_ITS ---
Pharmacy Intervention Comments: MEDICATION RECONCILIATION COMPLETED ON PATIENT USING MAR FROM [facility]. -SAMUEL MEDELLIN, DIOGOD
--- NOTE | 2024-04-12 15:54 | HMH.PHAINT1 ---
Pharmacy Intervention Comments: MEDICATION RECONCILIATION COMPLETED ON PATIENT USING MAR FROM [facility]. -SAMUEL MEDELLIN, DIOGOD
--- NOTE | 2024-04-12 18:41 | PC.NURSE ---
aox2, 4lnc for o2 support. tolerated diet well.
--- NOTE | 2024-04-12 20:40 | P.HP_ITS ---
History of Present Illness *Admission Date: 04/12/24 *Reason for visit:: Shortness of breath *History of present illness: Valerie Gonzalez is a 84-year-old female with a medical history significant for COPD on 2 L, current tobacco smoker, hypertension, type 2 diabetes, hypothyroidism, GERD who presents from [facility] home with progressive shortness of breath for the past months which has acutely gotten worse over the past 4 days. Patient states she has been having more yellow productive cough over the past few days, shortness of breath, but denies chest pain, abdominal pain, fevers, leg swelling. She states she has been adherent to her medications but cannot recall them. She is a resident at a rest home. ED workup remarkable for WBC 13.8, unremarkable VBG and respiratory panel. CTA reveals multifocal pneumonia predominantly in the upper lobes. Patient was having increased work of breathing with wheezing, was given breathing treatment and steroids in the ED. Case discussed with the ED provider and decision was made to admit patient for acute on chronic hypoxic respiratory failure secondary to COPD exacerbation, community-acquired pneumonia. [facility] Disclaimer: The information contained in this section may have been updated after the patient was seen, as this information can be updated by other users. Medical History CVA (cerebral vascular accident) COPD (chronic obstructive pulmonary disease) Overweight (BMI 25.0-29.9) Type II diabetes mellitus Depression Hypertension Hypothyroidism Declining mobility Herpes zoster Social History Smoking Status: Current every day smoker tobacco type: cigarettes packs per day: 1 alcohol intake: never substance use type: denies use current occupational status: retired Travel in the last 8 weeks: None household members: other housing: house Other Medical History Have you received the Flu Vaccine for this season: Yes Have you received the Pneumonia Vaccine: Yes Meds Home Medications and Allergies Home Medications ?Medication ?Instructions ?Recorded ?Confirmed ?Type albuterol sulfate 90 mcg/actuation 2 puffs inhalation Q4HP PRN 11/05/18 04/12/24 Rx aerosol inhaler Shortness Of Breath Or Wheezing #1 inh gabapentin 300 mg capsule 300 mg PO TID 30 days #90 caps 01/19/24 04/12/24 Rx acetaminophen 500 mg tablet 500 mg PO Q8HP PRN Mild Pain 04/12/24 04/12/24 History (Scale Score 1-4) amlodipine 10 mg tablet 10 mg PO DAILY 04/12/24 04/12/24 History aspirin 81 mg chewable tablet 81 mg PO DAILY 04/12/24 04/12/24 History atorvastatin 20 mg tablet 20 mg PO HS 04/12/24 04/12/24 History fluticasone fur. 200 mcg-umeclid 1 ea inhalation DAILY 04/12/24 04/12/24 History 62.5 mcg-vilant 25 mcg inhalat.powder (Trelegy Ellipta) glipizide 10 mg tablet 10 mg PO DAILY 04/12/24 04/12/24 History insulin glargine 100 unit/mL (3 7 unit SQ DAILY 04/12/24 04/12/24 History mL) subcutaneous pen (Lantus Solostar U-100 Insulin) insulin glargine 100 unit/mL (3 14 unit SQ HS 04/12/24 04/12/24 History mL) subcutaneous pen (Lantus Solostar U-100 Insulin) insulin regular human 100 unit/mL See Rx Instructions .Route .COMPLEX 04/12/24 04/12/24 History injection solution (Humulin R Regular U-100 Insulin) ipratropium 0.5 mg-albuterol 3 mg 3 ml inhalation QID 04/12/24 04/12/24 History (2.5 mg base)/3 mL nebulization soln levothyroxine 25 mcg tablet 25 mcg PO DAILY 04/12/24 04/12/24 History melatonin 3 mg tablet 6 mg PO HSP PRN Insomnia 04/12/24 04/12/24 History metoprolol succinate 25 mg 12.5 mg PO DAILY 04/12/24 04/12/24 History tablet,extended release 24 hr mirtazapine 15 mg tablet 15 mg PO HS 04/12/24 04/12/24 History multivitamin 1 tab PO DAILY 04/12/24 04/12/24 History pantoprazole 40 mg tablet,delayed 40 mg PO DAILY 04/12/24 04/12/24 History release peg 400-propylene glycol (PF) 0.4 1 drp Eye-Right BID 04/12/24 04/12/24 History %-0.3 % eye drops in a dropperette (Systane (PF)) polyethylene glycol 3350 17 17 g PO DAILY 04/12/24 04/12/24 History gram/dose oral powder sennosides 8.6 mg tablet (senna) 17.2 mg PO HS 04/12/24 04/12/24 History trazodone 50 mg tablet 50 mg PO HS 04/12/24 04/12/24 History New Prescriptions to Start Prescriptions: Allergies Allergy/AdvReac Type Severity Reaction Status Date / Time No Known Allergies Allergy Verified 01/06/24 13:24 Exam Data for Last 24 hours Vital signs and Labs for Last 24 Hours: Temp Pulse Resp BP Pulse Ox O2 Del Method O2 Flow Rate 98.4 F 92 H 18 107/58 L 92 L Nasal Cannula 4 04/12/24 16:00 04/12/24 16:00 04/12/24 16:00 04/12/24 16:00 04/12/24 16:00 04/12/24 18:20 04/12/24 18:20 Laboratory Results - last 24 hr 04/12/24 10:30: WBC 13.8 H, RBC 4.07 L, Hgb 11.3 L, Hct 35.8 L, MCV 88.0, MCH 27.8, MCHC 31.6 L, RDW 14.8, Plt Count 165, MPV 11.4 H, Neut % (Auto) 74.1, Lymph % (Auto) 18.1, [place] % (Auto) 6.6, Eos % (Auto) 0.3, Baso % (Auto) 0.3, Neut # (Auto) 10.3 H, Lymph # (Auto) 2.5, [place] # (Auto) 0.9, Eos # (Auto) 0.0, Baso # (Auto) 0.0, D-Dimer 1.18 H, VBG pH 7.40, VBG pCO2 35.1, VBG pO2 141.6 H, VBG HCO3 21.1 L, VBG Total CO2 22.2 L, VBG O2 Saturation 98.6 H, VBG Base Excess -3.7 L, VBG Lactic Acid 1.3, Sodium 135 L, Potassium 4.3, Chloride 103, Carbon Dioxide 24, Anion Gap 12.3, BUN 25 H, Creatinine 1.60 H, Estimated Creat Clear 34, Estimated GFR 31 L, Est GFR ( Amer) 37 L, Glucose 193 H, Calcium 8.9, Total Bilirubin 1.1, AST 39 H, ALT 36, Alkaline Phosphatase 218 H, Troponin I < 0.01, C-Reactive Protein 229.8 H, NT-Pro-B Natriuret Pep 388, Total Protein 6.8, Albumin 3.5, Globulin 3.3 H, Albumin/Globulin Ratio 1.1, Procalcitonin 0.241, TSH 2.93, Thyroxine (T4) 9.4, Chlamy pneumoniae PCR Not detected, Adenovirus (PCR) Not detected, B. pertussis DNA (PCR) Not detected, Coronavirus OC43 (PCR) Not detected, Coronavirus HKU1 (PCR) Not detected, Coronavirus 229E (PCR) Not detected, SARS-CoV-2 (PCR) Not detected, Coronavirus NL63 (PCR) Not detected, Human Metapneumovir PCR Not detected, Influenza A (H1) PCR Not detected, Influ A (H1N1/09) PCR Not detected, Influenza A (H3) PCR Not detected, Influenza Type A (PCR) Not detected, Influenza Type B (PCR) Not detected, M. pneumoniae (PCR) Not detected, Parainfluenza 1 (PCR) Not detected, Parainfluenza 2 (PCR) Not detected, Parainfluenza 3 (PCR) Not detected, Parainfluenza 4 (PCR) Not detected, RSV (PCR) Not detected, Entero/Rhino (PCR) Not detected I & O for Last 24 hours: Intake & Output 04/09/24 04/10/24 04/11/24 04/12/24 23:59 23:59 23:59 23:59 Intake Total 360 / 360 Balance 360 / 360 Weight 81.647 kg Constitutional Constitutional: no acute distress *Routine HEENT Exam Head: Present normocephalic Eye: Present EOMI and PERRL ENT: Present mucous membranes moist *Routine Neck Exam Neck: Present supple; Absent lymphadenopathy *Routine Respiratory Exam Respiratory: Present wheezes; Absent CTA bilaterally *Routine Cardiovascular Exam Cardiovascular: Present RRR *Routine Abdominal Exam Abdominal: Present soft and normoactive bowel sounds; Absent tenderness *Routine Rectal Exam Rectal:: deferred *Routine Genitalia Exam Genitalia:: deferred *Routine Extremities Exam Extremities: Absent cyanosis, clubbing or edema *Routine Skin Exam Skin: Present warm; Absent rash *Routine Neurological Exam Neurological: Present alert and oriented X3 Assessment and Plan *Assessment and plan (1) Pneumonia: Status: Acute Category: Medical Code(s): J18.9 - Pneumonia, unspecified organism (2) Acute on chronic respiratory failure: Status: Acute Category: Medical Code(s): J96.20 - Acute and chronic respiratory failure, unspecified whether with hypoxia or hypercapnia (3) Acute exacerbation of chronic obstructive pulmonary disease: Status: Acute Category: Medical Code(s): J44.1 - Chronic obstructive pulmonary disease with (acute) exacerbation (4) COPD (chronic obstructive pulmonary disease): Status: Acute Qualifiers: COPD type: unspecified COPD Qualified Code(s): J44.9 - Chronic obstructive pulmonary disease, unspecified Category: Medical Code(s): J44.9 - Chronic obstructive pulmonary disease, unspecified (5) Hypertension: Status: Acute Qualifiers: Hypertension type: essential hypertension Qualified Code(s): I10 - Essential (primary) hypertension Category: Medical Code(s): I10 - Essential (primary) hypertension (6) Hypothyroidism: Status: Acute Qualifiers: Hypothyroidism type: acquired Qualified Code(s): E03.9 - Hypothyroidism, unspecified Category: Medical Code(s): E03.9 - Hypothyroidism, unspecified Plan Valerie Gonzalez is a 84-year-old female with a medical history significant for COPD on 2 L, current tobacco smoker, hypertension, type 2 diabetes, hypothyroidism, GERD who presents from [facility] with progressive shortness of breath for the past months which has acutely gotten worse over the past 4 days. Patient states she has been having more yellow productive cough over the past few days, shortness of breath, but denies chest pain, abdominal pain, fevers, leg swelling. She states she has been adherent to her medications but cannot recall them. She is a resident at a rest home. ED workup remarkable for WBC 13.8, unremarkable VBG and respiratory panel. CTA reveals multifocal pneumonia predominantly in the upper lobes. Patient was having increased work of breathing with wheezing, was given breathing treatment and steroids in the ED. Case discussed with the ED provider and decision was made to admit patient for acute on chronic hypoxic respiratory failure secondary to COPD exacerbation, community-acquired pneumonia. #Acute on chronic hypoxic respiratory failure ? Baseline 2 L, requiring 4 L at this time. Secondary to COPD exacerbation, community-acquired pneumonia. See separate problems. #Acute COPD exacerbation ? Diffuse wheezing in all lung vinson, with productive cough. Respiratory panel negative. ? DuoNebs every 6 hours, Pulmicort twice daily. ? Prednisone 40 mg daily 04/28 starting tomorrow. ? Azithromycin day 03/28. ? Resume home Trelegy once appropriate. ? Pulmonology consulted to establish care. #Community-acquired pneumonia ? CTA chest showing multifocal pneumonia, predominantly in the upper lobes. No PE. ? Ceftriaxone day 03/28. ? Follow-up sputum, blood cultures. #Hypertension ? Hold home amlodipine due to soft pressures. #Type 2 diabetes #Peripheral neuropathy ? Follow-up hemoglobin A1c. ? Resumed home Lantus 12 units nightly. ? Resumed home gabapentin 300 mg 3 times daily. ? LDSSI, ACHS glucose checks ? Hold home glipizide, consider discontinuing given high risk of hypoglycemia with insulin. #Hypothyroidism ? Resume home levothyroxine 25 mcg. ? Follow-up morning TFTs. #GERD ? Resume home PPI. Full code DVT prophylaxis: Lovenox 40 mg
[2024-04-12 20:44] LABS: POC Glucose,Bedside 366 (70-110)
[2024-04-12] MEDS: IPRATROPIUM/ALBUTEROL 3 ML NEB IH ×2 (20:50→23:55)
[2024-04-12] MEDS: BUDESONIDE 0.5MG/2ML NEB 0.5 MG IH (20:51)
[2024-04-12] MEDS: humaLOG 100 UNITS/ML 10ML VIAL (SSI) SUBCUT (21:14)
[2024-04-12] MEDS: GABAPENTIN 300MG CAPSULE 300 MG PO (21:24)
[2024-04-12] MEDS: ATORVASTATIN 20MG TABLET 20 MG PO (21:24)
[2024-04-12] MEDS: MIRTAZAPINE 15 MG TABLET PO (21:24)
[2024-04-12] MEDS: INSULIN GLARGINE 100 UNITS/ML 3ML FLEXPEN 14 UNIT SUBCUT (21:25)
[2024-04-12] MEDS: TRAZODONE 50MG TABLET 50 MG PO (21:25)
[2024-04-13] VITALS (10 sets, daily range): BP systolic 115–159; BP diastolic 58–81; PULSE 71–90; RESP 14–18; TEMP 36.4–36.8; O2SAT 92–98; BMI 29.9
--- NOTE | 2024-04-13 03:52 | PC.NURSE ---
84 yo fe is A/O X 2. She is able to answer questions appropriately but does become confused at times. Pt with 02 on at 4 liter/nc.Noted pt with SOA on minimal exertion becoming SOA with conversation. She denies coughing much. Lungs with insp and exp wheezing throughout. Pt tolerating diabetic diet. FSBS 366 at 9pm. Insulin per SS. VS WNL for pt.
[2024-04-13] MEDS: humaLOG 100 UNITS/ML 10ML VIAL (SSI) SUBCUT ×4 (05:27→20:56)
[2024-04-13] MEDS: BUDESONIDE 0.5MG/2ML NEB 0.5 MG IH ×2 (06:21→18:18)
[2024-04-13] MEDS: IPRATROPIUM/ALBUTEROL 3 ML NEB IH ×4 (06:22→21:57)
[2024-04-13 06:30] LABS: POC Glucose,Bedside 326 (70-110)
[2024-04-13 06:34] LABS: Basophils % 0.1 % (0.1-2.0); Hemoglobin 11.1 g/dL (12.2-16.2); Lymphocytes % 8.2 % (10-50); Mean Corpuscular HGB Conc 31.7 g/dL (31.8-35.4); Mean Corpuscular Hemoglobin 27.8 pg (27.0-31.2); Mean Corpuscular Volume 87.7 fl (81-99); Mean Platelet Volume 11.3 fl (7.4-10.4); Monocytes # 0.3 K/mm3 (0.1-1.0); Monocytes % 2.4 % (1.7-9.3); Neutrophils # 10.7 K/mm3 (1.8-7.8); Neutrophils % 88.7 % (37.0-80.0); Platelet Count 183 K/mm3 (142-424); Red Blood Count 3.99 M/mm3 (4.20-5.40); Red Cell Distribution Width 14.5 % (11.5-17.5)
[2024-04-13 06:47] LABS: Alanine Aminotransferase 35 U/L (12-78); Albumin Level 3.4 g/dl (3.5-5.0); Albumin/Globulin Ratio 1.1 (1.1-1.8); Alkaline Phosphatase 218 U/L (38-126); Aspartate Amino Transferase 30 U/L (14-36); Bilirubin,Total 0.4 mg/dl (0.2-1.3); Blood Urea Nitrogen 28 mg/dl (7-17); Calcium 9.1 mg/dl (8.4-10.2); Carbon Dioxide 24 mmol/L (22.0-30.0); Chloride 107 mmol/L (98-107); Creatinine Clearance Estimated 34 mL/min (50-200); Estimated Glomerular Filt Rate 31 ml/min (>60); GFR (African American) 37 ML/MIN (>60); Globulin 3.2 g/dL (1.3-3.2); Glucose 360 mg/dl (74-100); Magnesium 2.8 mg/dl (1.6-2.3); Sodium 140 mmol/L (136-145); Total Protein,Serum 6.6 g/dl (6.3-8.2)
[2024-04-13 07:13] LABS: Hemoglobin A1C 7.4 % (4.0-6.0)
[2024-04-13 07:16] LABS: Thyroid Stimulating Hormone 0.95 uIU/mL (0.465-4.68)
--- NOTE | 2024-04-13 07:55 | SW/DCPLANNER ---
Addendum entered by Belkys Loo 04/15/24 15:02: I have [place] treviño [facility] [place] will [place] level of care. Addendum entered by Belkys Loo 04/14/24 10:46: Kathleen treviño [facility] [place] stated that patient has been approved and will return SNF level of care. Per MD patient will discharge home today. Addendum entered by Belkys Loo 04/13/24 13:11: Kathleen treviño [facility] [place] stated that she will start precert today to accept patient back SNF level of care. Original Note: This patient currently resides at [facility] level of care. Updated patient information has been faxed to Kathleen [facility] [place]. Discharge date is unknown at this time. I will continue to follow up.
[2024-04-13] MEDS: CEFTRIAXONE 1 GM 1 GM in 0.9 % SODIUM CHLORIDE 50 ML IV (08:31)
[2024-04-13] MEDS: GABAPENTIN 300MG CAPSULE 300 MG PO ×3 (08:35→20:55)
[2024-04-13] MEDS: METOPROLOL SUCCINATE XL 25MG TABLET 12.5 MG PO (08:35)
[2024-04-13] MEDS: ASPIRIN 81MG CHEWABLE TABLET 81 MG PO (08:35)
[2024-04-13] MEDS: ENOXAPARIN 40MG/0.4ML SYRINGE 40 MG SUBCUT (08:35)
[2024-04-13] MEDS: LEVOTHYROXINE 25MCG (0.025MG) TAB 25 MCG PO (08:35)
[2024-04-13] MEDS: AZITHROMYCIN 250MG TABLET 250 MG PO (08:35)
[2024-04-13] MEDS: POLYETHYLENE GLYCOL 3350 17 GM PACKET PO (08:35)
[2024-04-13] MEDS: predniSONE 20MG TAB 40 MG PO (08:35)
[2024-04-13] MEDS: INSULIN GLARGINE 100 UNITS/ML 3ML FLEXPEN 14 UNIT SUBCUT ×2 (08:36→20:55)
--- NOTE | 2024-04-13 09:36 | P.CONS_ITS ---
History of Present Illness History of present illness: Patient is a poor historian. Ms. Gonzalez is a 84-year-old female with reported history of COPD chronic hypoxic respiratory failure hypertension dyslipidemia hypothyroidism presented today with worsening respiratory distress and pulmonary was called for further evaluation and management. [facility] Disclaimer: The information contained in this section may have been updated after the patient was seen, as this information can be updated by other users. Medical History (Updated 04/13/24 @ 11:04 by Celi Rodriguez MD) Lung nodule Hilar lymphadenopathy Mediastinal lymphadenopathy CVA (cerebral vascular accident) COPD (chronic obstructive pulmonary disease) Overweight (BMI 25.0-29.9) Type II diabetes mellitus Depression Hypertension Hypothyroidism Declining mobility Herpes zoster Social History Smoking Status: Current every day smoker tobacco type: cigarettes packs per day: 1 alcohol intake: never substance use type: denies use current occupational status: retired Travel in the last 8 weeks: None household members: other housing: house Review of Systems Constitutional Constitutional: Reports fatigue ENT Ears, Nose, Mouth, and Throat: Denies lip swelling and Denies throat swelling *Cardiovascular Cardiovascular: Reports dyspnea and Reports dyspnea on exertion *Respiratory Respiratory: Reports chest congestion, Reports cough, Reports dyspnea, Reports dyspnea on exertion and Reports wheezing *Gastrointestinal Gastrointestinal: Denies abdominal pain, Denies belching and Denies cramping *Musculoskeletal Musculoskeletal: Reports back pain Psychiatric Psychiatric: Denies homicidal ideation and Denies suicidal ideation Endocrine Endocrine: Reports fatigue and Denies heat intolerance Hematologic/Lymphatic Hematologic/Lymphatic: Denies easy bleeding and Denies lymphadenopathy Allergic/Immunologic Allergic/Immunologic: Denies lip swelling, Denies throat swelling and Reports wheezing Pulmonology Exam Inpatient Vital signs and Labs for Last 24 Hours: Temp Pulse Resp BP Pulse Ox O2 Del Method O2 Flow Rate 97.5 F L 85 16 115/62 97 Nasal Cannula 4 04/13/24 08:00 04/13/24 08:00 04/13/24 08:00 04/13/24 08:00 04/13/24 08:00 04/13/24 08:00 04/13/24 08:00 Laboratory Results - last 24 hr 04/12/24 10:30: WBC 13.8 H, RBC 4.07 L, Hgb 11.3 L, Hct 35.8 L, MCV 88.0, MCH 27.8, MCHC 31.6 L, RDW 14.8, Plt Count 165, MPV 11.4 H, Neut % (Auto) 74.1, Lymph % (Auto) 18.1, [place] % (Auto) 6.6, Eos % (Auto) 0.3, Baso % (Auto) 0.3, N eut # (Auto) 10.3 H, Lymph # (Auto) 2.5, [place] # (Auto) 0.9, Eos # (Auto) 0.0, Baso # (Auto) 0.0, D-Dimer 1.18 H, VBG pH 7.40, VBG pCO2 35.1, VBG pO2 141.6 H, VBG HCO3 21.1 L, VBG Total CO2 22.2 L, VBG O2 Saturation 98.6 H, VBG Base Excess -3.7 L, VBG Lactic Acid 1.3, Sodium 135 L, Potassium 4.3, Chloride 103, Carbon Dioxide 24, Anion Gap 12.3, BUN 25 H, Creatinine 1.60 H, Estimated Creat Clear 34, Estimated GFR 31 L, Est GFR ( Amer) 37 L, Glucose 193 H, Calcium 8.9, Total Bilirubin 1.1, AST 39 H, ALT 36, Alkaline Phosphatase 218 H, Troponin I < 0.01, C-Reactive Protein 229.8 H, NT-Pro-B Natriuret Pep 388, Total Protein 6.8, Albumin 3.5, Globulin 3.3 H, Albumin/Globulin Ratio 1.1, Procalcitonin 0.241, TSH 2.93, Thyroxine (T4) 9.4, Chlamy pneumoniae PCR Not detected, Adenovirus (PCR) Not detected, B. pertussis DNA (PCR) Not detected, Coronavirus OC43 (PCR) Not detected, Coronavirus HKU1 (PCR) Not detected, Coronavirus 229E (PCR) Not detected, SARS-CoV-2 (PCR) Not detected, Coronavirus NL63 (PCR) Not detected, Human Metapneumovir PCR Not detected, Influenza A (H1) PCR Not detected, Influ A (H1N1/09) PCR Not detected, Influenza A (H3) PCR Not detected, Influenza Type A (PCR) Not detected, Influenza Type B (PCR) Not detected, M. pneumoniae (PCR) Not detected, Parainfluenza 1 (PCR) Not detected, Parainfluenza 2 (PCR) Not detected, Parainfluenza 3 (PCR) Not detected, Parainfluenza 4 (PCR) Not detected, RSV (PCR) Not detected, Entero/Rhino (PCR) Not detected 04/12/24 20:33: POC Glucose 366 H* 04/13/24 05:26: POC Glucose 326 H* 04/13/24 05:50: WBC 12.0 H, RBC 3.99 L, Hgb 11.1 L, Hct 35.0 L, MCV 87.7, MCH 27.8, MCHC 31.7 L, RDW 14.5, Plt Count 183, MPV 11.3 H, Neut % (Auto) 88.7 H, L ymph % (Auto) 8.2 L, [place] % (Auto) 2.4, Eos % (Auto) 0.0 L, Baso % (Auto) 0.1, N eut # (Auto) 10.7 H, Lymph # (Auto) 1.0, [place] # (Auto) 0.3, Eos # (Auto) 0.0, Baso # (Auto) 0.0, Sodium 140, Chloride 107, Carbon Dioxide 24, BUN 28 H, C reatinine 1.60 H, Estimated Creat Clear 34, Estimated GFR 31 L, Est GFR ( Amer) 37 L, Glucose 360 H D, Hemoglobin A1c 7.4 H, Calcium 9.1, Magnesium 2.8 H, Total Bilirubin 0.4, AST 30, ALT 35, Alkaline Phosphatase 218 H, Total Protein 6.6, Albumin 3.4 L, Globulin 3.2, Albumin/Globulin Ratio 1.1, TSH 0.95 D, Free T4 1.40 I & O for Labs for Last 24 Hours: Intake & Output 04/10/24 04/11/24 04/12/24 04/13/24 23:59 23:59 23:59 23:59 Intake Total 360 / 360 Output Total 0 / 0 Balance 360 / 360 0 / 0 Weight 180 lb 180 lb 0.013 oz Constitutional: Present moderate distress Head: Present normocephalic and atraumatic ENT: Present normal exam, normal oropharynx and mucous membranes moist Neck: Present normal inspection and full ROM Respiratory: Present respiratory distress, rhonchi, wheezes, diminished air movement and able to speak in complete sentences Cardiac: Present S1/S2, Tachycardia and radial pulses present GI: Present soft and distention; Absent tenderness or guarding Rectal (female): Present deferred (female): Present deferred Skin: Present intact; Absent cyanosis or jaundice Neuro: Present alert, awake and oriented x 3 Extremities: Present normal inspection; Absent clubbing or cyanosis Psychiatric: Present normal affect and cooperative Meds Home Medications and Allergies Home Medications ?Medication ?Instructions ?Recorded ?Confirmed ?Type albuterol sulfate 90 mcg/actuation 2 puffs inhalation Q4HP PRN 11/05/18 04/12/24 Rx aerosol inhaler Shortness Of Breath Or Wheezing #1 inh gabapentin 300 mg capsule 300 mg PO TID 30 days #90 caps 01/19/24 04/12/24 Rx acetaminophen 500 mg tablet 500 mg PO Q8HP PRN Mild Pain 04/12/24 04/12/24 History (Scale Score 1-4) amlodipine 10 mg tablet 10 mg PO DAILY 04/12/24 04/12/24 History aspirin 81 mg chewable tablet 81 mg PO DAILY 04/12/24 04/12/24 History atorvastatin 20 mg tablet 20 mg PO HS 04/12/24 04/12/24 History fluticasone fur. 200 mcg-umeclid 1 ea inhalation DAILY 04/12/24 04/12/24 History 62.5 mcg-vilant 25 mcg inhalat.powder (Trelegy Ellipta) glipizide 10 mg tablet 10 mg PO DAILY 04/12/24 04/12/24 History insulin glargine 100 unit/mL (3 7 unit SQ DAILY 04/12/24 04/12/24 History mL) subcutaneous pen (Lantus Solostar U-100 Insulin) insulin glargine 100 unit/mL (3 14 unit SQ HS 04/12/24 04/12/24 History mL) subcutaneous pen (Lantus Solostar U-100 Insulin) insulin regular human 100 unit/mL See Rx Instructions .Route .COMPLEX 04/12/24 04/12/24 History injection solution (Humulin R Regular U-100 Insulin) ipratropium 0.5 mg-albuterol 3 mg 3 ml inhalation QID 04/12/24 04/12/24 History (2.5 mg base)/3 mL nebulization soln levothyroxine 25 mcg tablet 25 mcg PO DAILY 04/12/24 04/12/24 History melatonin 3 mg tablet 6 mg PO HSP PRN Insomnia 04/12/24 04/12/24 History metoprolol succinate 25 mg 12.5 mg PO DAILY 04/12/24 04/12/24 History tablet,extended release 24 hr mirtazapine 15 mg tablet 15 mg PO HS 04/12/24 04/12/24 History multivitamin 1 tab PO DAILY 04/12/24 04/12/24 History pantoprazole 40 mg tablet,delayed 40 mg PO DAILY 04/12/24 04/12/24 History release peg 400-propylene glycol (PF) 0.4 1 drp Eye-Right BID 04/12/24 04/12/24 History %-0.3 % eye drops in a dropperette (Systane (PF)) polyethylene glycol 3350 17 17 g PO DAILY 04/12/24 04/12/24 History gram/dose oral powder sennosides 8.6 mg tablet (senna) 17.2 mg PO HS 04/12/24 04/12/24 History trazodone 50 mg tablet 50 mg PO HS 04/12/24 04/12/24 History New Prescriptions to Start Prescriptions: Allergies Allergy/AdvReac Type Severity Reaction Status Date / Time No Known Allergies Allergy Verified 01/06/24 13:24 Results Laboratory Findings 04/13/24 05:50 04/13/24 05:50 PT/INR, D-dimer D-Dimer 1.18 ug/mL (0.0-0.5) H 04/12/24 10:30 Abnormal lab findings: Abnormal Labs 04/12/24 04/12/24 04/13/24 10:30 20:33 05:26 WBC 13.8 H RBC 4.07 L Hgb 11.3 L Hct 35.8 L MCHC 31.6 L MPV 11.4 H Neut % (Auto) Lymph % (Auto) Eos % (Auto) Neut # (Auto) 10.3 H D-Dimer 1.18 H VBG pO2 141.6 H VBG HCO3 21.1 L VBG Total CO2 22.2 L VBG O2 Saturation 98.6 H VBG Base Excess -3.7 L Sodium 135 L BUN 25 H Creatinine 1.60 H Estimated GFR 31 L Est GFR ( Amer) 37 L Glucose 193 H POC Glucose 366 H* 326 H* Hemoglobin A1c Magnesium AST 39 H Alkaline Phosphatase 218 H C-Reactive Protein 229.8 H Albumin Globulin 3.3 H 04/13/24 05:50 WBC 12.0 H RBC 3.99 L Hgb 11.1 L Hct 35.0 L MCHC 31.7 L MPV 11.3 H Neut % (Auto) 88.7 H Lymph % (Auto) 8.2 L Eos % (Auto) 0.0 L Neut # (Auto) 10.7 H D-Dimer VBG pO2 VBG HCO3 VBG Total CO2 VBG O2 Saturation VBG Base Excess Sodium BUN 28 H Creatinine 1.60 H Estimated GFR 31 L Est GFR ( Amer) 37 L Glucose 360 H D POC Glucose Hemoglobin A1c 7.4 H Magnesium 2.8 H AST Alkaline Phosphatase 218 H C-Reactive Protein Albumin 3.4 L Globulin Assessment and Plan *Assessment and plan (1) Pneumonia: Status: Acute Category: Medical Code(s): J18.9 - Pneumonia, unspecified organism (2) Mediastinal lymphadenopathy: Status: Acute Category: Medical Code(s): R59.0 - Localized enlarged lymph nodes (3) Hilar lymphadenopathy: Status: Acute Category: Medical Code(s): R59.0 - Localized enlarged lymph nodes (4) Lung nodule: Status: Acute Category: Medical Code(s): R91.1 - Solitary pulmonary nodule (5) Acute exacerbation of chronic obstructive pulmonary disease: Status: Acute Category: Medical Code(s): J44.1 - Chronic obstructive pulmonary disease with (acute) exacerbation Plan Patient is a poor historian. Ms. Gonzalez is a 84-year-old female with reported history of COPD chronic hypoxic respiratory failure hypertension dyslipidemia hypothyroidism presented today with worsening respiratory distress and pulmonary was called for further evaluation and management. Afebrile. Hemodynamically stable. Mild neutrophilic predominant leukocytosis. Venous blood gas upon admission did not show any evidence of hypoxic/hypercarbic respiratory failure. KASSANDRA on CKD noted. Comprehensive respiratory viral PCR panel negative. Currently receiving ceftriaxone azithromycin, nebulization therapies and steroids. CTA upon admission evidence of pulmonary embolism. Bilateral patchy airspace disease predominantly upper lobes right greater than left. No effusions noted. CT also noted for concerning right upper lobe nodule along with lymphadenopathy. Can well be reactive/infectious/malignant etiology, need to follow-up imaging as an outpatient Examination moderate respiratory distress. Diffuse wheezing and rhonchi noted. Plan: Change antibiotics to levofloxacin pending culture results. Recommend to monitor QTc. DuoNebs every 4 hours along with Pulmicort every 12 scheduled Continue prednisone 40 mg daily x 5 days next Follow-up with sputum cultures and nasal MRSA PCR # For the noted concerning lung nodule lymphadenopathy will follow as an outpatient basis with repeat imaging
--- NOTE | 2024-04-13 09:55 | HMH.PTEV ---
Physical Therapy Evaluation Rehab PT IP Evaluation Start: 04/12/24 20:54 Freq: ONCE Status: Active Protocol: Document 04/13/24 09:46 GRAY (Rec: 04/13/24 09:55 GRAY [id number]) Subjective/History History History Per H&P: Valerie Gonzalez is a 84-year-old female with a medical history significant for COPD on 2 L, current tobacco smoker, hypertension, type 2 diabetes, hypothyroidism, GERD who presents from arrest home with progressive shortness of breath for the past months which has acutely gotten worse over the past 4 days. Patient states she has been having more yellow productive cough over the past few days, shortness of breath, but denies chest pain, abdominal pain, fevers, leg swelling. She states she has been adherent to her medications but cannot recall them. She is a resident at a rest home. ED workup remarkable for WBC 13.8, unremarkable VBG and respiratory panel. CTA reveals multifocal pneumonia predominantly in the upper lobes. Patient was having increased work of breathing with wheezing, was given breathing treatment and steroids in the ED. Case discussed with the ED provider and decision was made to admit patient for acute on chronic hypoxic respiratory failure secondary to COPD exacerbation, community- acquired pneumonia. Subjective Subjective Pt reports she lives in a retirement and is usually IND with short ambulation distances using RW. Pt primarily uses a w/c for mobility around the retirement. Pt reports she can receive 24/7 care if needed. New diagnosis of cancer in past 12 No months? Rehab PT IP Eval Objective Appearance Patient Behavior Appropriate,Cooperative Patient Orientation Person,Place Difficulty following instructions none Speech Pattern Clear Ambulation Patient Able to Ambulate Yes Ambulation Observation IP General Gait Pattern Observation No Deviations/Normal Ambulation Distance (feet) 25 Ambulation Assistive Device Rolling Walker Ambulation Ability Supervision/Stand by,Contact Guard/Hand Hold Balance Ability to Arise Able, uses arms to help Sitting Balance Steady, safe Standing Balance Steady, wide stance Dynamic Sitting Balance Ability Good Dynamic Standing Balance Ability Good Transfers Bed Transfer Ability Supervision/Stand by Sit to Stand Bed Transfer Ability Supervision/Stand by Rehab PT IP prob,goals,plan Problems Date of Evaluation: 04/13/24 PT IP Problems Transfers,Gait,Balance,Safety Rehab Potential Rehab Potential Good Equipment Needs Assistive Devices Rolling / Wheeled Walker Plan PT Intervention Plan Transfers,Gait,Balance,Safety, Therapeutic Exercise Other Intervention Plan 1-2 times PT Plan Frequency Daily Duration LOS Discharge Plan PT Discharge Plan Initial physical therapy evaluation performed. Patient presents below baseline at this time in functional mobility, transfers, gait, and strength. Pt would benefit from skilled PT while at [facility] to prevent further functional decline and maximize safety with mobility. Pt most appropriate to return to retirement facility with 24/ 7 assistance/supervision. May benefit from participating in rehab PT services at retirement to return to [facility] and address strength/endurance deficits. Eval Complexity Eval Charge Codes 15932 - Moderate Complexity PHYSICIAN CERTIFICATION: I certify the specified therapy services for Valerie Gonzalez are required, authorized, and reviewed every 30 days.
[2024-04-13 10:13] LABS: Anion Gap 13.6 mEq/L (5-15); Potassium 4.6 mmoL/L (3.5-5.1)
[2024-04-13 10:17] LABS: Hepatitis C Ab Qual. W/ RFX NEGATIVE (Negative)
--- NOTE | 2024-04-13 10:19 | HMH.OTEV ---
OT Inpatient Evaluation Rehab OT IP Evaluation Start: 04/12/24 20:54 Freq: ONCE Status: Active Protocol: Document 04/13/24 10:07 [facility] (Rec: 04/13/24 10:19 [facility] [id number]) Rehab OT IP Assessment Subjective History Pt is oriented x 3 on arrival. Pt agreeable to engage in therapy evaluation. Pt admitted on 04/12/24 due to SOB . History and physical: Per H&P: Valerie Gonzalez is a 84-year-old female with a medical history significant for COPD on 2 L, current tobacco smoker, hypertension, type 2 diabetes, hypothyroidism, GERD who presents from arrest home with progressive shortness of breath for the past months which has acutely gotten worse over the past 4 days. Patient states she has been having more yellow productive cough over the past few days, shortness of breath, but denies chest pain, abdominal pain, fevers, leg swelling. She states she has been adherent to her medications but cannot recall them. She is a resident at a rest home. ED workup remarkable for WBC 13.8, unremarkable VBG and respiratory panel. CTA reveals multifocal pneumonia predominantly in the upper lobes. Patient was having increased work of breathing with wheezing, was given breathing treatment and steroids in the ED. Case discussed with the ED provider and decision was made to admit patient for acute on chronic hypoxic respiratory failure secondary to COPD exacerbation, community- acquired pneumonia. Subjective I needed some help. Pt reports she lives in a snf and is usually IND with short transfer distances using RW. Pt primarily uses a w/c for mobility around the snf. Pt claims normally she is independent with ADLs, but is dependent upon staff for completion of IADLs. Pt reports she can receive 24/7 care if needed. Objective Patient Orientation Person,Place,Birthday Right Upper Extremity Gross ROM Min Limitation <25% Left Upper Extremity Gross ROM Min Limitation <25% Shoulder ROM Limitations Muscle Weakness Elbow ROM Limitations Muscle Weakness Wrist Limitations of Range of Motion Muscle Weakness Transfer Training Sit/Stand Transfer Assist Level Minimal x 1 (25% assist) Chair Transfer Ability Minimal x 1 (25% assist) Chair Transfer Technique Sit to/from Ambulatory Chair Transfer Assistive Devices Rolling Walker Rehab OT IP prob,goals,plan Problems Date of Evaluation: 04/13/24 OT IP Problems Bed Mobility,Transfers,Balance ,Self care,Safety Rehab Potential Rehab Potential Good Equipment Needs Assistive Devices Rolling / Wheeled Walker Plan OT intervention Plan Bed Mobility,Transfers,Balance ,Self care,Safety OT Plan Frequency Daily Duration LOS Discharge Goals Bed Mobility Ability Assistance x1 Sit to Stand Chair Transfer Ability Contact Guard/Hand Hold Chair Transfer Ability Contact Guard/Hand Hold Chair Transfer Technique Sit to/from Ambulatory Chair Transfer Assistive Devices Rolling Walker Feeding Ability Assist with Tray Set Up Lower Body Dressing Ability Moderate Assistance Upper Body Dressing Ability Contact Guard Bathing Ability Moderate Assistance Performing Toilet Hygiene Ability Contact Guard Overall Commode/Toilet Transfer Ability Standby Assistance,Contact Guard Commode/Toilet Transfer Technique Sit to/from Ambulatory Commode/Toilet Transfer Assistive Grab Bars Devices Discharge Plan OT Discharge Plan Pt will continue to be seen for OT services while at [facility]. Pt would benefit from skilled OT services once returning back to SNF. Continued skilled therapy is important in order for patient to improve strength, safety, endurance, ADL independence, and functional transfers to reach PLOF. Eval Complexity Eval Charge Codes 69049 - Moderate Complexity PHYSICIAN CERTIFICATION: I certify the specified therapy services for Valerie Gonzalez are required, authorized, and reviewed every 30 days.
[2024-04-13 10:47] LABS: POC Glucose,Bedside 394 (70-110)
[2024-04-13] MEDS: levoFLOXacin 750 MG TABLET PO (11:29)
[2024-04-13] MEDS: SODIUM CHLORIDE 3% 15ML NEB 3 ML IH (13:34)
--- NOTE | 2024-04-13 14:24 | EXP.ACUTE.PN ---
Subjective *Date: 04/13/24 *Time: 14:29 Interval history: Patient showing slow improvement. On 4 L initially this morning, weaned to 3 L on rounds. Has been accepted to [facility] [place] when medically stable to discharge. Glucose remains elevated. Increasing insulin regimen. Still feels quite weak. Working with therapy. Tolerating p.o. intake Medical Exam Vital signs and Labs for Last 24 Hours: Vital Signs Temp Pulse Pulse Resp BP BP Pulse Ox 04/13/24 13:36 78 18 04/13/24 13:36 78 04/13/24 13:36 78 04/13/24 13:00 04/13/24 12:00 97.6 F 78 17 119/58 L 94 L 04/13/24 11:00 04/13/24 09:00 04/13/24 08:00 97 04/13/24 08:00 97.5 F L 85 16 115/62 97 04/13/24 07:00 04/13/24 06:24 71 04/13/24 06:24 76 04/13/24 06:24 98 04/13/24 05:00 04/13/24 04:00 98.3 F 87 16 159/81 H 94 L 04/13/24 03:00 04/13/24 01:00 04/13/24 00:00 97.9 F 77 14 120/61 98 04/12/24 23:55 78 04/12/24 23:55 79 04/12/24 23:00 04/12/24 21:00 04/12/24 20:52 88 04/12/24 20:52 86 04/12/24 20:52 92 L 04/12/24 20:00 92 L 04/12/24 20:00 97.6 F 88 18 146/73 H 94 L 04/12/24 18:20 04/12/24 17:00 04/12/24 16:00 98.4 F 92 H 18 107/58 L 92 L 04/12/24 15:00 04/12/24 14:48 98.3 F 88 18 121/59 L 04/12/24 14:33 O2 Del Method O2 Flow Rate 04/13/24 13:36 04/13/24 13:36 04/13/24 13:36 04/13/24 13:00 Nasal Cannula 3 04/13/24 12:00 Nasal Cannula 3 04/13/24 11:00 Nasal Cannula 3 04/13/24 09:00 Nasal Cannula 4 04/13/24 08:00 Nasal Cannula 4 04/13/24 08:00 Nasal Cannula 4 04/13/24 07:00 Nasal Cannula 4 04/13/24 06:24 04/13/24 06:24 04/13/24 06:24 Nasal Cannula 4 04/13/24 05:00 Nasal Cannula 4 04/13/24 04:00 Nasal Cannula 4 04/13/24 03:00 Nasal Cannula 4 04/13/24 01:00 Nasal Cannula 4 04/13/24 00:00 Nasal Cannula 4 04/12/24 23:55 04/12/24 23:55 04/12/24 23:00 Nasal Cannula 4 04/12/24 21:00 Nasal Cannula 4 04/12/24 20:52 04/12/24 20:52 04/12/24 20:52 Nasal Cannula 4 04/12/24 20:00 Nasal Cannula 4 04/12/24 20:00 Nasal Cannula 4 04/12/24 18:20 Nasal Cannula 4 04/12/24 17:00 Nasal Cannula 4 04/12/24 16:00 Nasal Cannula 4 04/12/24 15:00 Nasal Cannula 4 04/12/24 14:48 Nasal Cannula 4 04/12/24 14:33 Nasal Cannula 4 Intake and Output 04/12/24 04/13/24 04/13/24 23:59 07:59 15:59 Intake Total 360 / 360 Output Total 0 / 550 550 / 550 Balance 360 / 360 0 / -550 -550 / -550 Intake: Intake, Oral Amount 360 / 360 Output: Output, Urine Amount 0 / 550 550 / 550 Other: Number of Unmeasured Voids 1 1 Number of Bowel Movements 1 Weight 81.647 kg Patient Weight 04/13/24 23:59 Weight 81.647 kg Laboratory Results - last 24 hr 04/12/24 20:33: POC Glucose 366 H* 04/13/24 05:26: POC Glucose 326 H* 04/13/24 05:50: WBC 12.0 H, RBC 3.99 L, Hgb 11.1 L, Hct 35.0 L, MCV 87.7, MCH 27.8, MCHC 31.7 L, RDW 14.5, Plt Count 183, MPV 11.3 H, Neut % (Auto) 88.7 H, Lymph % (Auto) 8.2 L, [place] % (Auto) 2.4, Eos % (Auto) 0.0 L, Baso % (Auto) 0.1, Neut # (Auto) 10.7 H, Lymph # (Auto) 1.0, [place] # (Auto) 0.3, Eos # (Auto) 0.0, Baso # (Auto) 0.0, Sodium 140, Potassium 4.6, Chloride 107, Carbon Dioxide 24, Anion Gap 13.6, BUN 28 H, Creatinine 1.60 H, Estimated Creat Clear 34, Estimated GFR 31 L, Est GFR ( Amer) 37 L, Glucose 360 H D, Hemoglobin A1c 7.4 H, Calcium 9.1, Magnesium 2.8 H, Total Bilirubin 0.4, AST 30, ALT 35, Alkaline Phosphatase 218 H, Total Protein 6.6, Albumin 3.4 L, Globulin 3.2, Albumin/Globulin Ratio 1.1, TSH 0.95 D, Free T4 1.40, HCV Ab SONAM w/Rflx PCR Qn Negative 04/13/24 10:40: POC Glucose 394 H* I & O for Labs for Last 24 Hours: Intake & Output 04/10/24 04/11/24 04/12/24 04/13/24 23:59 23:59 23:59 23:59 Intake Total 360 / 360 Output Total 550 / 550 Balance 360 / 360 -550 / -550 Weight 81.647 kg 81.647 kg Microbiology Reports for the Last 24 Hours: Microbiology 04/12/24 11:45 Blood Blood Culture - Preliminary NO GROWTH AFTER 24 HOURS 04/12/24 11:45 Blood Blood Culture - Preliminary NO GROWTH AFTER 24 HOURS Constitutional: Present no acute distress, obese, chronically ill appearing and cooperative Head: Present atraumatic and normocephalic ENT: Present normal exam Respiratory: Present prolonged expiratory phase, wheezes and normal respiratory effort; Absent respiratory distress, rhonchi or crackles Cardiac: Present Reg Rate and Rhythm GI: Present soft and normal bowel sounds; Absent distention or tenderness Extremities: Present normal inspection and full ROM Skin: Present intact; Absent erythema Neuro: Present Grossly Intact, alert, awake, oriented x 3 and moves all extremities Assessment and Plan *Assessment and plan (1) Pneumonia: Status: Acute Category: Medical Code(s): J18.9 - Pneumonia, unspecified organism (2) Acute on chronic respiratory failure: Status: Acute Category: Medical Code(s): J96.20 - Acute and chronic respiratory failure, unspecified whether with hypoxia or hypercapnia (3) Acute exacerbation of chronic obstructive pulmonary disease: Status: Acute Category: Medical Code(s): J44.1 - Chronic obstructive pulmonary disease with (acute) exacerbation (4) COPD (chronic obstructive pulmonary disease): Status: Acute Qualifiers: COPD type: unspecified COPD Qualified Code(s): J44.9 - Chronic obstructive pulmonary disease, unspecified Category: Medical Code(s): J44.9 - Chronic obstructive pulmonary disease, unspecified (5) Hypertension: Status: Acute Qualifiers: Hypertension type: essential hypertension Qualified Code(s): I10 - Essential (primary) hypertension Category: Medical Code(s): I10 - Essential (primary) hypertension (6) Hypothyroidism: Status: Acute Qualifiers: Hypothyroidism type: acquired Qualified Code(s): E03.9 - Hypothyroidism, unspecified Category: Medical Code(s): E03.9 - Hypothyroidism, unspecified (7) Obesity (BMI 30.0-34.9): Status: Acute Category: Medical Code(s): E66.811 - Obesity, class 1 Plan Valerie Gonzalez is a 84-year-old female with a medical history significant for COPD on 2 L, current tobacco smoker, hypertension, type 2 diabetes, hypothyroidism, GERD who presents from arrest home with progressive shortness of breath for the past months which has acutely gotten worse over the past 4 days. Patient states she has been having more yellow productive cough over the past few days, shortness of breath, but denies chest pain, abdominal pain, fevers, leg swelling. She states she has been adherent to her medications but cannot recall them. She is a resident at a rest home. ED workup remarkable for WBC 13.8, unremarkable VBG and respiratory panel. CTA reveals multifocal pneumonia predominantly in the upper lobes. Patient was having increased work of breathing with wheezing, was given breathing treatment and steroids in the ED. Case discussed with the ED provider and decision was made to admit patient for acute on chronic hypoxic respiratory failure secondary to COPD exacerbation, community-acquired pneumonia. #Acute on chronic hypoxic respiratory failure #Acute COPD exacerbation # Community acquired pneumonia ? Diffuse wheezing in all lung vinson, with productive cough. Respiratory panel negative. CTA of chest shows multifocal pneumonia predominantly in upper lobes. No PE. -Discussed case with pulmonology, recommend transitioning to Levaquin for 5 to 7 days pending culture results. Monitor QTc. DuoNebs every 4 hours along with Pulmicort twice daily. Continue prednisone 40 mg daily for 5 days. ? Follow-up sputum, blood cultures. -White count 12, hemoglobin 11, kidney function at baseline with BUN 28, creatinine 1.6. Repeat CBC, CMP, magnesium ordered for the morning. #Hypertension ? Hold home amlodipine due to soft pressures. Reevaluate initiation tomorrow #Type 2 diabetes #Peripheral neuropathy ?A1c 7.4. Morning glucose 360. Increase sliding scale insulin to high intensity. - Increase insulin glargine to 14 units twice daily ? Resumed home gabapentin 300 mg 3 times daily. ? LDSSI, ACHS glucose checks ? Hold home glipizide, consider discontinuing given high risk of hypoglycemia with insulin. #Hypothyroidism ? Resume home levothyroxine 25 mcg. ?TSH normal at 0.95 #GERD: Resume home PPI. Full code DVT prophylaxis: Lovenox 40 mg Diabetic diet
[2024-04-13 16:26] LABS: POC Glucose,Bedside 290 (70-110)
--- NOTE | 2024-04-13 17:38 | PC.NURSE ---
Patient weaned from 4L to 3L NC this AM and has maintained o2 stats >90% throughout shift
[2024-04-13 20:30] LABS: POC Glucose,Bedside 299 (70-110)
[2024-04-13] MEDS: ATORVASTATIN 20MG TABLET 20 MG PO (20:55)
[2024-04-13] MEDS: MIRTAZAPINE 15 MG TABLET PO (20:56)
[2024-04-13] MEDS: PANTOPRAZOLE 40MG TABLET 40 MG PO (20:56)
[2024-04-13] MEDS: TRAZODONE 50MG TABLET 50 MG PO (20:56)
[2024-04-14] VITALS (12 sets, daily range): BP systolic 123–142; BP diastolic 66–73; PULSE 76–92; RESP 16–22; TEMP 36.2–36.6; O2SAT 93–97; BMI 29.3
[2024-04-14] MEDS: IPRATROPIUM/ALBUTEROL 3 ML NEB IH ×5 (01:42→21:59)
--- NOTE | 2024-04-14 03:50 | PC.NURSE ---
84 yo fe is A/O X 2. She is able to ambulate with use of walker and assist X 1. Pt with 02 on at 2 liter/nc, down from 4 liters at start of shift and maintaining stats above 90 throughout the night. She denies coughing much. Lungs with insp and exp wheezing throughout. Pt tolerating diabetic diet. FSBS 299 at 9pm. Insulin per SS. VS WNL for pt.
[2024-04-14] MEDS: LEVOTHYROXINE 25MCG (0.025MG) TAB 25 MCG PO (06:01)
[2024-04-14] MEDS: humaLOG 100 UNITS/ML 10ML VIAL (SSI) SUBCUT ×4 (06:01→20:21)
[2024-04-14 06:10] LABS: POC Glucose,Bedside 241 (70-110)
[2024-04-14] MEDS: BUDESONIDE 0.5MG/2ML NEB 0.5 MG IH ×2 (06:16→18:35)
[2024-04-14 07:01] LABS: Basophils % 0.2 % (0.1-2.0); Hematocrit 33.5 % (37.0-47.0); Hemoglobin 10.6 g/dL (12.2-16.2); Lymphocytes # 1.1 K/mm3 (0.7-4.5); Lymphocytes % 7.4 % (10-50); Mean Corpuscular HGB Conc 31.6 g/dL (31.8-35.4); Mean Corpuscular Hemoglobin 27.7 pg (27.0-31.2); Mean Corpuscular Volume 87.5 fl (81-99); Mean Platelet Volume 11.4 fl (7.4-10.4); Monocytes # 0.6 K/mm3 (0.1-1.0); Monocytes % 3.8 % (1.7-9.3); Neutrophils # 13.2 K/mm3 (1.8-7.8); Neutrophils % 87.4 % (37.0-80.0); Platelet Count 221 K/mm3 (142-424); Red Blood Count 3.83 M/mm3 (4.20-5.40); Red Cell Distribution Width 14.9 % (11.5-17.5); White Blood Count 15.1 K/mm3 (4.8-10.8)
[2024-04-14 07:03] LABS: Alanine Aminotransferase 34 U/L (12-78); Albumin Level 3.3 g/dl (3.5-5.0); Albumin/Globulin Ratio 1.1 (1.1-1.8); Alkaline Phosphatase 187 U/L (38-126); Anion Gap 13.2 mEq/L (5-15); Aspartate Amino Transferase 33 U/L (14-36); Bilirubin,Total 0.2 mg/dl (0.2-1.3); Blood Urea Nitrogen 43 mg/dl (7-17); Calcium 9.4 mg/dl (8.4-10.2); Carbon Dioxide 26 mmol/L (22.0-30.0); Chloride 107 mmol/L (98-107); Creatinine Clearance Estimated 35 mL/min (50-200); Estimated Glomerular Filt Rate 33 ml/min (>60); GFR (African American) 40 ML/MIN (>60); Glucose 237 mg/dl (74-100); Magnesium 2.3 mg/dl (1.6-2.3); Potassium 5.2 mmoL/L (3.5-5.1); Sodium 141 mmol/L (136-145); Total Protein,Serum 6.3 g/dl (6.3-8.2)
[2024-04-14 07:05] LABS: MANUAL DIFFERENTIAL MANUAL DIFFERENTIAL (MANUAL DIFF)
[2024-04-14 08:15] LABS: Lymphocytes % 10 % (10-50); Monocytes % 2 % (2-9); Neutrophils % 88 % (42-76); Total Cells Counted 100
[2024-04-14 08:16] LABS: Platelet Estimate Normal; RBC Morphology Normal
[2024-04-14] MEDS: ASPIRIN 81MG CHEWABLE TABLET 81 MG PO (08:48)
[2024-04-14] MEDS: GABAPENTIN 300MG CAPSULE 300 MG PO ×3 (08:48→20:21)
[2024-04-14] MEDS: ENOXAPARIN 40MG/0.4ML SYRINGE 40 MG SUBCUT (08:48)
[2024-04-14] MEDS: METOPROLOL SUCCINATE XL 25MG TABLET 12.5 MG PO (08:49)
[2024-04-14] MEDS: POLYETHYLENE GLYCOL 3350 17 GM PACKET PO (08:49)
[2024-04-14] MEDS: predniSONE 20MG TAB 40 MG PO (08:49)
[2024-04-14] MEDS: INSULIN GLARGINE 100 UNITS/ML 3ML FLEXPEN 14 UNIT SUBCUT ×2 (08:52→20:21)
--- NOTE | 2024-04-14 09:39 | P.PN_ITS ---
Subjective *Date: 04/14/24 *Time: 12:51 Interval history: No acute respiratory vents overnight. Patient admits no significant improvement in her respiratory symptoms. Pulmonology Exam Inpatient Vital signs and Labs for Last 24 Hours: Temp Pulse Resp BP Pulse Ox O2 Del Method O2 Flow Rate 97.4 F L 83 16 123/66 97 Nasal Cannula 2.5 04/14/24 04:00 04/14/24 06:17 04/14/24 04:00 04/14/24 04:00 04/14/24 06:17 04/14/24 06:53 04/14/24 06:53 Laboratory Results - last 24 hr 04/13/24 05:50: Potassium 4.6, Anion Gap 13.6, HCV Ab SONAM w/Rflx PCR Qn Negative 04/13/24 10:40: POC Glucose 394 H* 04/13/24 16:13: POC Glucose 290 H 04/13/24 20:10: POC Glucose 299 H 04/14/24 06:00: POC Glucose 241 H 04/14/24 06:27: WBC 15.1 H D, RBC 3.83 L, Hgb 10.6 L, Hct 33.5 L, MCV 87.5, MCH 27.7, MCHC 31.6 L, RDW 14.9, Plt Count 221, MPV 11.4 H, Neut % (Auto) 87.4 H, Lymph % (Auto) 7.4 L, [place] % (Auto) 3.8, Eos % (Auto) 0.0 L, Baso % (Auto) 0.2, Neut # (Auto) 13.2 H, Lymph # (Auto) 1.1, [place] # (Auto) 0.6, Eos # (Auto) 0.0, Baso # (Auto) 0.0, Total Counted 100, Neutrophils % (Manual) 88 H, Lymphocytes % (Manual) 10, Monocytes % (Manual) 2, Platelet Estimate Normal, RBC Morphology Normal, Sodium 141, Potassium 5.2 H, Chloride 107, Carbon Dioxide 26, Anion Gap 13.2, BUN 43 H D, Creatinine 1.50 H, Estimated Creat Clear 35, Estimated GFR 33 L, Est GFR ( Amer) 40 L, Glucose 237 H, Calcium 9.4, Magnesium 2.3 D, Total Bilirubin 0.2, AST 33, ALT 34, Alkaline Phosphatase 187 H, Total Protein 6.3, Albumin 3.3 L, Globulin 3.0, Albumin/Globulin Ratio 1.1 Temp Pulse Resp BP Pulse Ox O2 Del Method O2 Flow Rate 97.5 F L 85 16 115/62 97 Nasal Cannula 4 04/13/24 08:00 04/13/24 08:00 04/13/24 08:00 04/13/24 08:00 04/13/24 08:00 04/13/24 08:00 04/13/24 08:00 Laboratory Results - last 24 hr 04/12/24 10:30: WBC 13.8 H, RBC 4.07 L, Hgb 11.3 L, Hct 35.8 L, MCV 88.0, MCH 27.8, MCHC 31.6 L, RDW 14.8, Plt Count 165, MPV 11.4 H, Neut % (Auto) 74.1, Lymph % (Auto) 18.1, [place] % (Auto) 6.6, Eos % (Auto) 0.3, Baso % (Auto) 0.3, Neut # (Auto) 10.3 H, Lymph # (Auto) 2.5, [place] # (Auto) 0.9, Eos # (Auto) 0.0, Baso # (Auto) 0.0, D-Dimer 1.18 H, VBG pH 7.40, VBG pCO2 35.1, VBG pO2 141.6 H, VBG HCO3 21.1 L, VBG Total CO2 22.2 L, VBG O2 Saturation 98.6 H, VBG Base Excess -3.7 L, VBG Lactic Acid 1.3, Sodium 135 L, Potassium 4.3, Chloride 103, Carbon Dioxide 24, Anion Gap 12.3, BUN 25 H, Creatinine 1.60 H, Estimated Creat Clear 3 4, Estimated GFR 31 L, Est GFR ( Amer) 37 L, Glucose 193 H, Calcium 8.9, Total Bilirubin 1.1, AST 39 H, ALT 36, Alkaline Phosphatase 218 H, Troponin I < 0.01, C-Reactive Protein 229.8 H, NT-Pro-B Natriuret Pep 388, Total Protein 6.8, Albumin 3.5, Globulin 3.3 H, Albumin/Globulin Ratio 1.1, Procalcitonin 0.241, TSH 2.93, Thyroxine (T4) 9.4, Chlamy pneumoniae PCR Not detected, Adenovirus (PCR) Not detected, B. pertussis DNA (PCR) Not detected, Coronavirus OC43 (PCR) Not detected, Coronavirus HKU1 (PCR) Not detected, Coronavirus 229E (PCR) Not detected, SARS-CoV-2 (PCR) Not detected, Coronavirus NL63 (PCR) Not detected, Human Metapneumovir PCR Not detected, Influenza A (H1) PCR Not detected, Influ A (H1N1/09) PCR Not detected, Influenza A (H3) PCR Not detected, Influenza Type A (PCR) Not detected, Influenza Type B (PCR) Not detected, M. pneumoniae (PCR) Not detected, Parainfluenza 1 (PCR) Not detected, Parainfluenza 2 (PCR) Not detected, Parainfluenza 3 (PCR) Not detected, Parainfluenza 4 (PCR) Not detected, RSV (PCR) Not detected, Entero/Rhino (PCR) Not detected 04/12/24 20:33: POC Glucose 366 H* 04/13/24 05:26: POC Glucose 326 H* 04/13/24 05:50: WBC 12.0 H, RBC 3.99 L, Hgb 11.1 L, Hct 35.0 L, MCV 87.7, MCH 27.8, MCHC 31.7 L, RDW 14.5, Plt Count 183, MPV 11.3 H, Neut % (Auto) 88.7 H, Lymph % (Auto) 8.2 L, [place] % (Auto) 2.4, Eos % (Auto) 0.0 L, Baso % (Auto) 0.1, Neut # (Auto) 10.7 H, Lymph # (Auto) 1.0, [place] # (Auto) 0.3, Eos # (Auto) 0.0, Baso # (Auto) 0.0, Sodium 140, Chloride 107, Carbon Dioxide 24, BUN 28 H, Creatinine 1.60 H, Estimated Creat Clear 34, Estimated GFR 31 L, Est GFR ( Amer) 37 L, Glucose 360 H D, Hemoglobin A1c 7.4 H, Calcium 9.1, Magnesium 2.8 H, Total Bilirubin 0.4, AST 30, ALT 35, Alkaline Phosphatase 218 H , Total Protein 6.6, Albumin 3.4 L, Globulin 3.2, Albumin/Globulin Ratio 1.1, TSH 0.95 D, Free T4 1.40 I & O for Labs for Last 24 Hours: Intake & Output 04/11/24 04/12/24 04/13/24 04/14/24 23:59 23:59 23:59 23:59 Intake Total 360 / 360 1440 / 1680 240 / 240 Output Total 700 / 700 500 / 500 Balance 360 / 360 740 / 980 -260 / -260 Weight 180 lb 180 lb 0.013 oz 176 lb 1.6 oz Intake & Output 04/10/24 04/11/24 04/12/24 04/13/24 23:59 23:59 23:59 23:59 Intake Total 360 / 360 Output Total 0 / 0 Balance 360 / 360 0 / 0 Weight 180 lb 180 lb 0.013 oz Microbiology Reports for the Last 24 Hours: Microbiology 04/12/24 11:45 Blood Blood Culture - Preliminary Gram Positive Cocci 04/13/24 13:45 Sputum - Expectorated Sputum Gram Stain - Final 04/13/24 13:45 Sputum - Expectorated Sputum Sputum Culture - Preliminary 04/12/24 11:45 Blood Blood Culture - Preliminary NO GROWTH AFTER 24 HOURS Constitutional: Present moderate distress Head: Present normocephalic and atraumatic ENT: Present normal exam, normal oropharynx and mucous membranes moist Neck: Present normal inspection and full ROM Respiratory: Present respiratory distress, rhonchi, wheezes, diminished air movement and able to speak in complete sentences Cardiac: Present S1/S2, Tachycardia and radial pulses present GI: Present soft and distention; Absent tenderness or guarding Rectal (female): Present deferred (female): Present deferred Skin: Present intact; Absent cyanosis or jaundice Neuro: Present alert, awake and oriented x 3 Extremities: Present normal inspection; Absent clubbing or cyanosis Psychiatric: Present normal affect and cooperative Assessment and Plan *Assessment and plan (1) Pneumonia: Status: Acute Category: Medical Code(s): J18.9 - Pneumonia, unspecified organism (2) Mediastinal lymphadenopathy: Status: Acute Category: Medical Code(s): R59.0 - Localized enlarged lymph nodes (3) Hilar lymphadenopathy: Status: Acute Category: Medical Code(s): R59.0 - Localized enlarged lymph nodes (4) Lung nodule: Status: Acute Category: Medical Code(s): R91.1 - Solitary pulmonary nodule (5) Acute exacerbation of chronic obstructive pulmonary disease: Status: Acute Category: Medical Code(s): J44.1 - Chronic obstructive pulmonary disease with (acute) exacerbation Plan Patient is a poor historian. Ms. Gonzalez is a 84-year-old female with reported history of COPD chronic hypoxic respiratory failure hypertension dyslipidemia hypothyroidism presented today with worsening respiratory distress and pulmonary was called for further evaluation and management. Afebrile. Hemodynamically stable. Mild neutrophilic predominant leukocytosis. Venous blood gas upon admission did not show any evidence of hypoxic/hypercarbic respiratory failure. KASSANDRA on CKD noted. Comprehensive respiratory viral PCR panel negative. Currently receiving ceftriaxone azithromycin, nebulization therapies and steroids. CTA upon admission evidence of pulmonary embolism. Bilateral patchy airspace disease predominantly upper lobes right greater than left. No effusions noted. CT also noted for concerning right upper lobe nodule along with lymphadenopathy. Can well be reactive/infectious/malignant etiology, need to follow-up imaging as an outpatient On initial examination moderate respiratory distress. Diffuse wheezing and rhonchi noted. Interval update: Worsening leukocytosis. Prelim blood cultures 1 bottle gram-positive cocci positive for MRSA. Sputum cultures growing gram-positive cocci. Nasal MRSA PCR pending. Plan: Change antibiotics to clindamycin pending final blood and sputum culture result s. DuoNebs every 4 hours along with Pulmicort every 12 scheduled Continue prednisone 40 mg daily x 5 days Follow-up with sputum cultures and nasal MRSA PCR # For the noted concerning lung nodule lymphadenopathy will follow as an outpatient basis with repeat imaging
[2024-04-14 11:07] LABS: POC Glucose,Bedside 301 (70-110)
[2024-04-14] MEDS: CLINDAMYCIN 150MG CAPSULE 450 MG PO ×2 (14:24→20:21)
--- NOTE | 2024-04-14 15:33 | EXP.ACUTE.PN ---
Subjective *Date: 04/14/24 *Time: 21:39 Interval history: Showing some improvement. Weaned to 2-1/2 L today. Baseline 2 L oxygen. Afebrile. Tolerating p.o. intake. Still little wheezy on exam. Blood cultures returned with 1 set positive, changing antibiotics today. Will continue to monitor overnight. Denies chest pain or significant shortness of breath Medical Exam Vital signs and Labs for Last 24 Hours: Vital Signs Temp Pulse Pulse Resp BP Pulse Ox O2 Del Method 04/14/24 13:34 88 04/14/24 13:34 87 04/14/24 11:57 97.8 F 88 19 126/70 94 L Nasal Cannula 04/14/24 09:00 Nasal Cannula 04/14/24 08:00 97.2 F L 91 H 22 133/71 93 L Nasal Cannula 04/14/24 08:00 Nasal Cannula 04/14/24 06:53 Nasal Cannula 04/14/24 06:17 83 04/14/24 06:17 86 04/14/24 06:17 97 Nasal Cannula 04/14/24 05:00 Nasal Cannula 04/14/24 04:00 97.4 F L 84 16 123/66 94 L Nasal Cannula 04/14/24 03:00 Nasal Cannula 04/14/24 01:43 87 04/14/24 01:43 86 04/14/24 01:00 Nasal Cannula 04/14/24 00:00 95 Nasal Cannula 04/14/24 00:00 97.6 F 91 H 16 124/69 95 Nasal Cannula 04/13/24 22:55 Nasal Cannula 04/13/24 21:58 85 04/13/24 21:58 84 04/13/24 21:00 Nasal Cannula 04/13/24 20:00 93 L Nasal Cannula 04/13/24 20:00 97.5 F L 90 18 134/71 93 L Nasal Cannula 04/13/24 18:33 Nasal Cannula 04/13/24 18:18 86 04/13/24 18:18 86 04/13/24 18:18 92 L Nasal Cannula 04/13/24 17:00 Nasal Cannula 04/13/24 16:00 98.1 F 84 18 120/63 93 L Nasal Cannula O2 Flow Rate 04/14/24 13:34 04/14/24 13:34 04/14/24 11:57 2.5 04/14/24 09:00 3 04/14/24 08:00 2.5 04/14/24 08:00 3 04/14/24 06:53 2.5 04/14/24 06:17 04/14/24 06:17 04/14/24 06:17 3 04/14/24 05:00 2 04/14/24 04:00 2.5 04/14/24 03:00 2 04/14/24 01:43 04/14/24 01:43 04/14/24 01:00 2 04/14/24 00:00 2 04/14/24 00:00 2.5 04/13/24 22:55 2 04/13/24 21:58 04/13/24 21:58 04/13/24 21:00 2 04/13/24 20:00 2 04/13/24 20:00 2 04/13/24 18:33 3 04/13/24 18:18 04/13/24 18:18 04/13/24 18:18 3 04/13/24 17:00 3 04/13/24 16:00 Intake and Output 04/13/24 04/14/24 04/14/24 23:59 07:59 15:59 Intake Total 480 / 1680 240 / 730 490 / 730 Output Total 150 / 700 500 / 1100 600 / 1100 Balance 330 / 980 -260 / -370 -110 / -370 Intake: Intake, Oral Amount 480 / 1680 240 / 730 490 / 730 Output: Output, Urine Amount 150 / 700 500 / 1100 600 / 1100 Other: Number of Unmeasured Voids 0 0 Number of Bowel Movements 1 Weight 79.878 kg Patient Weight 04/14/24 23:59 Weight 79.878 kg Laboratory Results - last 24 hr 04/13/24 16:13: POC Glucose 290 H 04/13/24 20:10: POC Glucose 299 H 04/14/24 06:00: POC Glucose 241 H 04/14/24 06:27: WBC 15.1 H D, RBC 3.83 L, Hgb 10.6 L, Hct 33.5 L, MCV 87.5, MCH 27.7, MCHC 31.6 L, RDW 14.9, Plt Count 221, MPV 11.4 H, Neut % (Auto) 87.4 H, Lymph % (Auto) 7.4 L, [place] % (Auto) 3.8, Eos % (Auto) 0.0 L, Baso % (Auto) 0.2, Neut # (Auto) 13.2 H, Lymph # (Auto) 1.1, [place] # (Auto) 0.6, Eos # (Auto) 0.0, Baso # (Auto) 0.0, Total Counted 100, Neutrophils % (Manual) 88 H, Lymphocytes % (Manual) 10, Monocytes % (Manual) 2, Platelet Estimate Normal, RBC Morphology Normal, Sodium 141, Potassium 5.2 H, Chloride 107, Carbon Dioxide 26, Anion Gap 13.2, BUN 43 H D, Creatinine 1.50 H, Estimated Creat Clear 35, Estimated GFR 33 L, Est GFR ( Amer) 40 L, Glucose 237 H, Calcium 9.4, Magnesium 2.3 D, Total Bilirubin 0.2, AST 33, ALT 34, Alkaline Phosphatase 187 H, Total Protein 6.3, Albumin 3.3 L, Globulin 3.0, Albumin/Globulin Ratio 1.1 04/14/24 10:52: POC Glucose 301 H* I & O for Labs for Last 24 Hours: Intake & Output 04/11/24 04/12/24 04/13/24 04/14/24 23:59 23:59 23:59 23:59 Intake Total 360 / 360 1440 / 1680 730 / 730 Output Total 700 / 700 1100 / 1100 Balance 360 / 360 740 / 980 -370 / -370 Weight 81.647 kg 81.647 kg 79.878 kg Microbiology Reports for the Last 24 Hours: Microbiology 04/12/24 11:45 Blood Blood Culture - Preliminary NO GROWTH AFTER 48 HOURS 04/12/24 11:45 Blood Blood Culture - Preliminary Gram Positive Cocci 04/13/24 13:45 Sputum - Expectorated Sputum Gram Stain - Final 04/13/24 13:45 Sputum - Expectorated Sputum Sputum Culture - Preliminary Constitutional: Present no acute distress, obese, chronically ill appearing and cooperative Head: Present atraumatic and normocephalic ENT: Present normal exam Respiratory: Present prolonged expiratory phase, wheezes (Minimal, interval improvement) and normal respiratory effort; Absent respiratory distress, rhonchi or crackles Cardiac: Present Reg Rate and Rhythm GI: Present soft and normal bowel sounds; Absent distention or tenderness Extremities: Present normal inspection and full ROM Skin: Present intact; Absent erythema Neuro: Present Grossly Intact, alert, awake, oriented x 3 and moves all extremities Assessment and Plan *Assessment and plan (1) Pneumonia: Status: Acute Category: Medical Code(s): J18.9 - Pneumonia, unspecified organism (2) Acute on chronic respiratory failure: Status: Acute Category: Medical Code(s): J96.20 - Acute and chronic respiratory failure, unspecified whether with hypoxia or hypercapnia (3) Acute exacerbation of chronic obstructive pulmonary disease: Status: Acute Category: Medical Code(s): J44.1 - Chronic obstructive pulmonary disease with (acute) exacerbation (4) COPD (chronic obstructive pulmonary disease): Status: Acute Qualifiers: COPD type: unspecified COPD Qualified Code(s): J44.9 - Chronic obstructive pulmonary disease, unspecified Category: Medical Code(s): J44.9 - Chronic obstructive pulmonary disease, unspecified (5) Hypertension: Status: Acute Qualifiers: Hypertension type: essential hypertension Qualified Code(s): I10 - Essential (primary) hypertension Category: Medical Code(s): I10 - Essential (primary) hypertension (6) Hypothyroidism: Status: Acute Qualifiers: Hypothyroidism type: acquired Qualified Code(s): E03.9 - Hypothyroidism, unspecified Category: Medical Code(s): E03.9 - Hypothyroidism, unspecified (7) Obesity (BMI 30.0-34.9): Status: Acute Category: Medical Code(s): E66.811 - Obesity, class 1 Plan Valerie Gonzalez is a 84-year-old female with a medical history significant for COPD on 2 L, current tobacco smoker, hypertension, type 2 diabetes, hypothyroidism, GERD who presents from [facility] with progressive shortness of breath for the past months which has acutely gotten worse over the past 4 days. Patient states she has been having more yellow productive cough over the past few days, shortness of breath, but denies chest pain, abdominal pain, fevers, leg swelling. She states she has been adherent to her medications but cannot recall them. She is a resident at a rest home. ED workup remarkable for WBC 13.8, unremarkable VBG and respiratory panel. CTA reveals multifocal pneumonia predominantly in the upper lobes. Patient was having increased work of breathing with wheezing, was given breathing treatment and steroids in the ED. Case discussed with the ED provider and decision was made to admit patient for acute on chronic hypoxic respiratory failure secondary to COPD exacerbation, community-acquired pneumonia. Continue inpatient management. Awaiting sputum results. Problems addressed as follows: #Acute on chronic hypoxic respiratory failure #Acute COPD exacerbation # Community acquired pneumonia ? Diffuse wheezing in all lung vinson, with productive cough. Respiratory panel negative. CTA of chest shows multifocal pneumonia predominantly in upper lobes. No PE. - Antibiotics changed at pulmonology's recommendation today to clindamycin due to possible contaminant but positive blood culture as well as sputum culture growing gram-positive cocci. Continue prednisone 40 mg daily for 5 days. Continue DuoNebs every 4 hours along with Pulmicort twice daily. -Count increased to 15. Hemoglobin stable at 11. Kidney function with slight bump in BUN to 43, creatinine 1.5. Repeat CBC, CMP, magnesium ordered for the morning. #Hypertension ? Hold home amlodipine due to normal blood pressure, Reevaluate initiation tomorrow #Type 2 diabetes #Peripheral neuropathy ? A1c 7.4. Morning glucose 237 -Continue sliding scale insulin at high intensity. Continue glargine 14 units twice daily. - Increase insulin glargine to 14 units twice daily ? Resumed home gabapentin 300 mg 3 times daily. ? LDSSI, ACHS glucose checks ? Hold home glipizide, consider discontinuing given high risk of hypoglycemia with insulin. #Hypothyroidism: Continue home levothyroxine 25 mcg. TSH normal at 0.95 #GERD: Resume home PPI. Full code DVT prophylaxis: Lovenox 40 mg Diabetic diet
[2024-04-14] MEDS: ATORVASTATIN 20MG TABLET 20 MG PO (20:21)
[2024-04-14] MEDS: NICOTINE 21MG/24HR PATCH 21 MG TD (20:21)
[2024-04-14] MEDS: PANTOPRAZOLE 40MG TABLET 40 MG PO (20:22)
[2024-04-14] MEDS: MIRTAZAPINE 15 MG TABLET PO (20:22)
[2024-04-14] MEDS: TRAZODONE 50MG TABLET 50 MG PO (20:22)
[2024-04-14 20:52] LABS: POC Glucose,Bedside 364 (70-110)
[2024-04-15] VITALS (8 sets, daily range): BP systolic 133–162; BP diastolic 71–93; PULSE 71–85; RESP 17–28; TEMP 36.5–37.1; O2SAT 86–98; BMI 29.7
--- NOTE | 2024-04-15 05:52 | PC.NURSE ---
Pt has remained alert and oriented and has tolerated 2.5L nasal cannula. Wheezing noted to lungs and bowel sounds active. Purewick has remained in place draining well. She has not had any complaints. Currently asleep with call light within reach.
[2024-04-15] MEDS: IPRATROPIUM/ALBUTEROL 3 ML NEB IH ×3 (06:21→18:36)
[2024-04-15] MEDS: BUDESONIDE 0.5MG/2ML NEB 0.5 MG IH ×2 (06:21→18:36)
[2024-04-15] MEDS: humaLOG 100 UNITS/ML 10ML VIAL (SSI) SUBCUT ×4 (06:25→21:03)
[2024-04-15] MEDS: LEVOTHYROXINE 25MCG (0.025MG) TAB 25 MCG PO (06:26)
[2024-04-15 06:36] LABS: POC Glucose,Bedside 243 (70-110)
[2024-04-15 06:55] LABS: Basophils # 0.1 K/mm3 (0-0.2); Basophils % 0.4 % (0.1-2.0); Hematocrit 34.5 % (37.0-47.0); Lymphocytes # 1.6 K/mm3 (0.7-4.5); Mean Corpuscular HGB Conc 31.9 g/dL (31.8-35.4); Mean Corpuscular Hemoglobin 27.8 pg (27.0-31.2); Mean Corpuscular Volume 87.1 fl (81-99); Mean Platelet Volume 11.4 fl (7.4-10.4); Monocytes # 0.5 K/mm3 (0.1-1.0); Monocytes % 3.8 % (1.7-9.3); Neutrophils # 10.8 K/mm3 (1.8-7.8); Neutrophils % 80.4 % (37.0-80.0); Platelet Count 222 K/mm3 (142-424); Red Blood Count 3.96 M/mm3 (4.20-5.40); Red Cell Distribution Width 14.9 % (11.5-17.5); White Blood Count 13.4 K/mm3 (4.8-10.8)
[2024-04-15 07:14] LABS: Alanine Aminotransferase 39 U/L (12-78); Albumin Level 3.4 g/dl (3.5-5.0); Albumin/Globulin Ratio 1.1 (1.1-1.8); Alkaline Phosphatase 181 U/L (38-126); Aspartate Amino Transferase 31 U/L (14-36); Bilirubin,Total 0.2 mg/dl (0.2-1.3); Blood Urea Nitrogen 43 mg/dl (7-17); Calcium 9.2 mg/dl (8.4-10.2); Carbon Dioxide 26 mmol/L (22.0-30.0); Chloride 105 mmol/L (98-107); Creatinine Clearance Estimated 33 mL/min (50-200); Estimated Glomerular Filt Rate 31 ml/min (>60); GFR (African American) 37 ML/MIN (>60); Globulin 3.1 g/dL (1.3-3.2); Glucose 251 mg/dl (74-100); Magnesium 2.2 mg/dl (1.6-2.3); Sodium 141 mmol/L (136-145); Total Protein,Serum 6.5 g/dl (6.3-8.2)
[2024-04-15] MEDS: POLYETHYLENE GLYCOL 3350 17 GM PACKET PO (08:41)
[2024-04-15] MEDS: GABAPENTIN 300MG CAPSULE 300 MG PO ×3 (08:42→21:01)
[2024-04-15] MEDS: ENOXAPARIN 40MG/0.4ML SYRINGE 40 MG SUBCUT (08:42)
[2024-04-15] MEDS: METOPROLOL SUCCINATE XL 25MG TABLET 12.5 MG PO (08:42)
[2024-04-15] MEDS: predniSONE 20MG TAB 40 MG PO (08:42)
[2024-04-15] MEDS: CLINDAMYCIN 150MG CAPSULE 450 MG PO ×3 (08:42→21:01)
[2024-04-15] MEDS: ASPIRIN 81MG CHEWABLE TABLET 81 MG PO (08:42)
[2024-04-15] MEDS: INSULIN GLARGINE 100 UNITS/ML 3ML FLEXPEN 14 UNIT SUBCUT ×2 (08:43→21:04)
[2024-04-15] MEDS: NICOTINE 21MG/24HR PATCH 21 MG TD (08:56)
--- NOTE | 2024-04-15 09:44 | P.DS_ITS ---
General Admission date:: 04/12/24 Discharge date: 04/15/24 HPI HPI HPI: Valerie Gonzalez is a 84-year-old female with a medical history significant for COPD on 2 L, current tobacco smoker, hypertension, type 2 diabetes, hypothyroidism, GERD who presents from [facility] home with progressive shortness of breath for the past months which has acutely gotten worse over the past 4 days. Patient states she has been having more yellow productive cough over the past few days, shortness of breath, but denies chest pain, abdominal pain, fevers, leg swelling. She states she has been adherent to her medications but cannot recall them. She is a resident at a rest home. ED workup remarkable for WBC 13.8, unremarkable VBG and respiratory panel. CTA reveals multifocal pneumonia predominantly in the upper lobes. Patient was having increased work of breathing with wheezing, was given breathing treatment and steroids in the ED. Case discussed with the ED provider and decision was made to admit patient for acute on chronic hypoxic respiratory failure secondary to COPD exacerbation, community-acquired pneumonia. Hospital Course Hospital Course Hospital Course: Valerie Gonzalez is a 84-year-old female with a medical history significant for COPD on 2 L, current tobacco smoker, hypertension, type 2 diabetes, hyp othyroidism, GERD who presents from [facility] with progressive shortness of breath for the past months which has acutely gotten worse over the past 4 days. Patient states she has been having more yellow productive cough over the past few days, shortness of breath, but denies chest pain, abdominal pain, fevers, leg swelling. She states she has been adherent to her medications but cannot recall them. She is a resident at a rest home. ED workup remarkable for WBC 13.8, unremarkable VBG and respiratory panel. CTA reveals multifocal pneumonia predominantly in the upper lobes. Patient was having increased work of breathing with wheezing, was given breathing treatment and steroids in the ED. Case discussed with the ED provider and decision was made to admit patient for acute on chronic hypoxic respiratory failure secondary to COPD exacerbation, community-acquired pneumonia. Sputum growing gram-positive cocci. Suspected staph pneumonia. Transition to clindamycin. Back to baseline oxygen requirement. Stable to discharge with outpatient antibiotic therapy. Problems addressed as follows: #Acute on chronic hypoxic respiratory failure #Acute COPD exacerbation # Community acquired pneumonia ? Diffuse wheezing in all lung vinson, with productive cough. Respiratory panel negative. CTA of chest shows multifocal pneumonia predominantly in upper lobes. No PE. Sputum sample obtained. Growing gram-positive cocci. Still awaiting final speciation and sensitivity. Pulmonology consulted and assisting with care. Initially on Levaquin, transitioned to clindamycin. Plan to complete 7 days of therapy. Continue DuoNebs as needed. Complete 5 days of prednisone. White count 13 on day of discharge, hemoglobin 11. No diarrhea, nausea, vomiting. Continue supplemental oxygen as needed for goal sats greater than 90%. Currently on 2 L which is her baseline oxygen requirement. #Hypertension ? Blood pressure improved during admission. Held amlodipine initially, resume at discharge #Type 2 diabetes #Peripheral neuropathy ?A1c 7.4 on admission. Morning glucose is still elevated likely due to boaz roids. Increased her insulin glargine to 14 units twice daily. Continue sliding scale insulin. Discontinued glipizide due to risk for hypoglycemia given her age and comorbidities. Continue gabapentin 300 mg 3 times a day for neuropathy. Continue sliding scale insulin per her home regimen at discharge #Hypothyroidism ? Resume home levothyroxine 25 mcg. TSH normal at 0.95 #GERD: Resume home PPI. Total time spent on discharge 32 minutes in counseling, documentation, chart review, and direct care with patient. Exam Data for Last 24 hours Vital signs and Labs for Last 24 Hours: Temp Pulse Resp BP Pulse Ox O2 Del Method O2 Flow Rate 97.8 F 88 19 126/70 94 L Nasal Cannula 2.5 04/14/24 11:57 04/14/24 11:57 04/14/24 11:57 04/14/24 11:57 04/14/24 11:57 04/14/24 11:57 04/14/24 11:57 Laboratory Results - last 24 hr 04/13/24 16:13: POC Glucose 290 H 04/13/24 20:10: POC Glucose 299 H 04/14/24 06:00: POC Glucose 241 H 04/14/24 06:27: WBC 15.1 H D, RBC 3.83 L, Hgb 10.6 L, Hct 33.5 L, MCV 87.5, MCH 27.7, MCHC 31.6 L, RDW 14.9, Plt Count 221, MPV 11.4 H, Neut % (Auto) 87.4 H, Lymph % (Auto) 7.4 L, [place] % (Auto) 3.8, Eos % (Auto) 0.0 L, Baso % (Auto) 0.2, Neut # (Auto) 13.2 H, Lymph # (Auto) 1.1, [place] # (Auto) 0.6, Eos # (Auto) 0.0, Baso # (Auto) 0.0, Total Counted 100, Neutrophils % (Manual) 88 H, Lymphocytes % (Manual) 10, Monocytes % (Manual) 2, Platelet Estimate Normal, RBC Morphology Normal, Sodium 141, Potassium 5.2 H, Chloride 107, Carbon Dioxide 26, Anion Gap 13.2, BUN 43 H D, Creatinine 1.50 H, Estimated Creat Clear 35, Estimated GFR 33 L, Est GFR ( Amer) 40 L, Glucose 237 H, Calcium 9.4, Magnesium 2.3 D, Total Bilirubin 0.2, AST 33, ALT 34, Alkaline Phosphatase 187 H, Total Protein 6.3, Albumin 3.3 L, Globulin 3.0, Albumin/Globulin Ratio 1.1 04/14/24 10:52: POC Glucose 301 H* I & O for Last 24 hours: Intake & Output 04/11/24 04/12/24 04/13/24 04/14/24 23:59 23:59 23:59 23:59 Intake Total 360 / 360 1440 / 1680 490 / 490 Output Total 700 / 700 500 / 500 Balance 360 / 360 740 / 980 -10 -10 Weight 81.647 kg 81.647 kg 79.878 kg Microbiology Reports for the Last 24 Hours: Microbiology 04/12/24 11:45 Blood Blood Culture - Preliminary NO GROWTH AFTER 48 HOURS 04/12/24 11:45 Blood Blood Culture - Preliminary Gram Positive Cocci 04/13/24 13:45 Sputum - Expectorated Sputum Gram Stain - Final 04/13/24 13:45 Sputum - Expectorated Sputum Sputum Culture - Preliminary Constitutional Constitutional: no acute distress, average body habitus, chronically ill appearing and cooperative *Routine HEENT Exam Head: Present normocephalic Eye: Present EOMI and PERRL ENT: Present mucous membranes moist *Routine Neck Exam Neck: Present supple; Absent lymphadenopathy *Routine Respiratory Exam Respiratory: Present prolonged expiratory phase and wheezes; Absent rhonchi or crackles *Routine Cardiovascular Exam Cardiovascular: Present RRR *Routine Abdominal Exam Abdominal: Present soft and normoactive bowel sounds; Absent tenderness *Routine Rectal Exam Patient deferred: visual exam *Routine Exam Patient deferred: external exam *Routine Extremities Exam Extremities: Absent cyanosis, clubbing or edema *Routine Skin Exam Skin: Present warm; Absent rash *Routine Neurological Exam Neurological: Present alert, oriented X3 and moving all extremities; Absent altered mental status Results Data Completed and Pending Labs on day of discharge: Labs from last 24 hours 04/14/24 04/14/24 04/14/24 10:52 06:27 06:00 WBC 15.1 H D RBC 3.83 L Hgb 10.6 L Hct 33.5 L MCV 87.5 MCH 27.7 MCHC 31.6 L RDW 14.9 Plt Count 221 MPV 11.4 H Neut % (Auto) 87.4 H Lymph % (Auto) 7.4 L [place] % (Auto) 3.8 Eos % (Auto) 0.0 L Baso % (Auto) 0.2 Neut # (Auto) 13.2 H Lymph # (Auto) 1.1 [place] # (Auto) 0.6 Eos # (Auto) 0.0 Baso # (Auto) 0.0 Total Counted 100 Neutrophils % (Manual) 88 H Lymphocytes % (Manual) 10 Monocytes % (Manual) 2 Platelet Estimate Normal RBC Morphology Normal Sodium 141 Potassium 5.2 H Chloride 107 Carbon Dioxide 26 Anion Gap 13.2 BUN 43 H D Creatinine 1.50 H Estimated Creat Clear 35 Estimated GFR 33 L Est GFR ( Amer) 40 L Glucose 237 H POC Glucose 301 H* 241 H Calcium 9.4 Magnesium 2.3 D Total Bilirubin 0.2 AST 33 ALT 34 Alkaline Phosphatase 187 H Total Protein 6.3 Albumin 3.3 L Globulin 3.0 Albumin/Globulin Ratio 1.1 04/13/24 04/13/24 20:10 16:13 WBC RBC Hgb Hct MCV MCH MCHC RDW Plt Count MPV Neut % (Auto) Lymph % (Auto) [place] % (Auto) Eos % (Auto) Baso % (Auto) Neut # (Auto) Lymph # (Auto) [place] # (Auto) Eos # (Auto) Baso # (Auto) Total Counted Neutrophils % (Manual) Lymphocytes % (Manual) Monocytes % (Manual) Platelet Estimate RBC Morphology Sodium Potassium Chloride Carbon Dioxide Anion Gap BUN Creatinine Estimated Creat Clear Estimated GFR Est GFR ( Amer) Glucose POC Glucose 299 H 290 H Calcium Magnesium Total Bilirubin AST ALT Alkaline Phosphatase Total Protein Albumin Globulin Albumin/Globulin Ratio Preliminary micro results at discharge 04/12/24 11:45 Blood Culture - Preliminary Blood NO GROWTH AFTER 48 HOURS 04/12/24 11:45 Blood Culture - Preliminary Blood Gram Positive Cocci 04/13/24 13:45 Sputum Culture - Preliminary Sputum - Expectorated Sputum DS: Diagnosis Discharge Diagnosis (1) Pneumonia: Status: Acute Code(s): J18.9 - Pneumonia, unspecified organism Qualifiers: Pneumonia type: due to methicillin-resistant Staphylococcus aureus (MRSA) Laterality: bilateral Lung location: upper lobe of lung Qualified Code(s): J15.212 - Pneumonia due to Methicillin resistant Staphylococcus aureus Problem details: Suspected MRSA pneumonia of bilateral lungs (2) Mediastinal lymphadenopathy: Status: Acute Code(s): R59.0 - Localized enlarged lymph nodes (3) Hilar lymphadenopathy: Status: Acute Code(s): R59.0 - Localized enlarged lymph nodes (4) Lung nodule: Status: Acute Code(s): R91.1 - Solitary pulmonary nodule (5) Acute exacerbation of chronic obstructive pulmonary disease: Status: Acute Code(s): J44.1 - Chronic obstructive pulmonary disease with (acute) exacerbation Meds Home Medications and Allergies Home Medications ?Medication ?Instructions ?Recorded ?Confirmed ?Type albuterol sulfate 90 mcg/actuation 2 puffs inhalation Q4HP PRN 11/05/18 04/12/24 Rx aerosol inhaler Shortness Of Breath Or Wheezing #1 inh gabapentin 300 mg capsule 300 mg PO TID 30 days #90 caps 01/19/24 04/12/24 Rx acetaminophen 500 mg tablet 500 mg PO Q8HP PRN Mild Pain 04/12/24 04/12/24 History (Scale Score 1-4) amlodipine 10 mg tablet 10 mg PO DAILY 04/12/24 04/12/24 History aspirin 81 mg chewable tablet 81 mg PO DAILY 04/12/24 04/12/24 History atorvastatin 20 mg tablet 20 mg PO HS 04/12/24 04/12/24 History fluticasone fur. 200 mcg-umeclid 1 ea inhalation DAILY 04/12/24 04/12/24 History 62.5 mcg-vilant 25 mcg inhalat.powder (Trelegy Ellipta) insulin regular human 100 unit/mL See Rx Instructions .Route .COMPLEX 04/12/24 04/12/24 History injection solution (Humulin R Regular U-100 Insulin) ipratropium 0.5 mg-albuterol 3 mg 3 ml inhalation QID 04/12/24 04/12/24 History (2.5 mg base)/3 mL nebulization soln levothyroxine 25 mcg tablet 25 mcg PO DAILY 04/12/24 04/12/24 History melatonin 3 mg tablet 6 mg PO HSP PRN Insomnia 04/12/24 04/12/24 History metoprolol succinate 25 mg 12.5 mg PO DAILY 04/12/24 04/12/24 History tablet,extended release 24 hr mirtazapine 15 mg tablet 15 mg PO HS 04/12/24 04/12/24 History multivitamin 1 tab PO DAILY 04/12/24 04/12/24 History pantoprazole 40 mg tablet,delayed 40 mg PO DAILY 04/12/24 04/12/24 History release peg 400-propylene glycol (PF) 0.4 1 drp Eye-Right BID 04/12/24 04/12/24 History %-0.3 % eye drops in a dropperette (Systane (PF)) polyethylene glycol 3350 17 17 g PO DAILY 04/12/24 04/12/24 History gram/dose oral powder sennosides 8.6 mg tablet (senna) 17.2 mg PO HS 04/12/24 04/12/24 History trazodone 50 mg tablet 50 mg PO HS 04/12/24 04/12/24 History clindamycin HCl 150 mg capsule 450 mg (3 x 150 mg) PO TID 4 days 04/15/24 Rx #36 caps insulin glargine 100 unit/mL (3 14 unit (0.14 mL) SQ BID 30 days 04/15/24 04/12/24 Rx mL) subcutaneous pen (Lantus #0 mL Solostar U-100 Insulin) prednisone 20 mg tablet 40 mg (2 x 20 mg) PO DAILY 2 days 04/15/24 Rx #4 tabs New Prescriptions to Start Prescriptions: clindamycin HCl Gary Chandler prednisone Gary Chandler Allergies Allergy/AdvReac Type Severity Reaction Status Date / Time No Known Allergies Allergy Verified 01/06/24 13:24 Discharge Plan Disposition Patient Disposition: [facility] Condition: Good Discharge Order Discharge Orders: Discharge Order (Routine); Ordered 04/15/24 Ordered By: Gary Chandler Follow up Plan Follow up with: Celi Rodriguez MD [Physician] - Enter time for follow up Prescriptions/Medication Reconciliation: New prednisone 20 mg Tablet 40 mg PO DAILY 2 Days Qty: 4 0RF clindamycin HCl 150 mg Capsule 450 mg PO TID 4 Days Qty: 36 0RF Continued gabapentin 300 mg capsule 300 mg PO TID 30 Days Qty: 90 0RF multivitamin Tablet 1 tab PO DAILY sennosides [senna] 8.6 mg tablet 17.2 mg PO HS atorvastatin 20 mg tablet 20 mg PO HS melatonin 3 mg Tablet 6 mg PO HSP PRN (Reason: Insomnia) acetaminophen 500 mg Tablet 500 mg PO Q8HP PRN (Reason: Mild Pain (Scale Score 1-4)) amlodipine 10 mg tablet 10 mg PO DAILY Humulin R Regular U-100 Insuln 100 unit/mL solution See Rx Instructions .ROUTE .COMPLEX Rx Instructions: PER SLIDING SCALE aspirin 81 mg tablet,chewable 81 mg PO DAILY metoprolol succinate 25 mg tablet extended release 24 hr 12.5 mg PO DAILY polyethylene glycol 3350 17 gram/dose powder 17 g PO DAILY Systane (PF) 0.4-0.3 % Dropperette 1 drp Eye-Right BID Trelegy Ellipta 200-62.5-25 mcg blister with device 1 ea INHALATION DAILY ipratropium-albuterol 0.5 mg-3 mg(2.5 mg base)/3 mL solution for nebulization 3 ml inhalation QID trazodone 50 mg tablet 50 mg PO HS levothyroxine 25 mcg tablet 25 mcg PO DAILY pantoprazole 40 mg tablet,delayed release (DR/EC) 40 mg PO DAILY mirtazapine 15 mg tablet 15 mg PO HS albuterol sulfate 8.5 GM HFA aerosol inhaler 2 puffs inhalation Q4HP PRN (Reason: Shortness Of Breath Or Wheezing) Qty: 1 2RF Changed insulin glargine [Lantus Solostar U-100 Insulin] 100 unit/mL (3 mL) insulin pen 14 unit SQ BID 30 Days Qty: 0 0RF Discontinued glipizide 10 mg tablet 10 mg PO DAILY insulin glargine [Lantus Solostar U-100 Insulin] 100 unit/mL (3 mL) insulin pen 7 unit SQ DAILY Problem Reconciliation Problems Reviewed?: Yes Patient Discharge Instructions ACTIVITY: Continue current activity DIET: continue same diet Patient Instructions: Pneumonia--Adult Print Language: [place] Providers Primary Care Provider: Provider,Referral Admit Provider: Brodie Oneal Attending Provider: Brodie Oneal
--- NOTE | 2024-04-15 09:45 | P.PN_ITS ---
Subjective *Date: 04/15/24 *Time: 12:12 Interval history: No acute respiratory vents overnight. Patient denies any new complaints. Pulmonology Exam Inpatient Vital signs and Labs for Last 24 Hours: Temp Pulse Resp BP Pulse Ox O2 Del Method O2 Flow Rate 97.9 F 76 20 162/86 H 96 Nasal Cannula 2 04/15/24 08:00 04/15/24 08:00 04/15/24 08:00 04/15/24 08:00 04/15/24 08:00 04/15/24 09:00 04/15/24 09:00 Laboratory Results - last 24 hr 04/14/24 10:52: POC Glucose 301 H* 04/14/24 20:20: POC Glucose 364 H* 04/15/24 06:24: POC Glucose 243 H 04/15/24 06:38: WBC 13.4 H, RBC 3.96 L, Hgb 11.0 L, Hct 34.5 L, MCV 87.1, MCH 27.8, MCHC 31.9, RDW 14.9, Plt Count 222, MPV 11.4 H, Neut % (Auto) 80.4 H, Lymph % (Auto) 12.0, [place] % (Auto) 3.8, Eos % (Auto) 0.0 L, Baso % (Auto) 0.4, Neut # (Auto) 10.8 H, Lymph # (Auto) 1.6, [place] # (Auto) 0.5, Eos # (Auto) 0.0, Baso # (Auto) 0.1, Sodium 141, Potassium 5.0, Chloride 105, Carbon Dioxide 26, Anion Gap 15.0, BUN 43 H, Creatinine 1.60 H, Estimated Creat Clear 33, Estimated GFR 31 L, Est GFR ( Amer) 37 L, Glucose 251 H, Calcium 9.2, Magnesium 2.2, Total Bilirubin 0.2, AST 31, ALT 39, Alkaline Phosphatase 181 H, Total Protein 6.5, Albumin 3.4 L, Globulin 3.1, Albumin/Globulin Ratio 1.1 Temp Pulse Resp BP Pulse Ox O2 Del Method O2 Flow Rate 97.5 F L 85 16 115/62 97 Nasal Cannula 4 04/13/24 08:00 04/13/24 08:00 04/13/24 08:00 04/13/24 08:00 04/13/24 08:00 04/13/24 08:00 04/13/24 08:00 Laboratory Results - last 24 hr 04/12/24 10:30: WBC 13.8 H, RBC 4.07 L, Hgb 11.3 L, Hct 35.8 L, MCV 88.0, MCH 27.8, MCHC 31.6 L, RDW 14.8, Plt Count 165, MPV 11.4 H, Neut % (Auto) 74.1, Ly mph % (Auto) 18.1, Bergen % (Auto) 6.6, Eos % (Auto) 0.3, Baso % (Auto) 0.3, Neut # (Auto) 10.3 H, Lymph # (Auto) 2.5, Berg[place] # (Auto) 0.9, Eos # (Auto) 0.0, Baso # (Auto) 0.0, D-Dimer 1.18 H, VBG pH 7.40, VBG pCO2 35.1, VBG pO2 141.6 H, VBG HCO3 21.1 L, VBG Total CO2 22.2 L, VBG O2 Saturation 98.6 H, VBG Base Excess - 3.7 L, VBG Lactic Acid 1.3, Sodium 135 L, Potassium 4.3, Chloride 103, Carbon Dioxide 24, Anion Gap 12.3, BUN 25 H, Creatinine 1.60 H, Estimated Creat Clear 34, Estimated GFR 31 L, Est GFR ( Amer) 37 L, Glucose 193 H, Calcium 8.9, Total Bilirubin 1.1, AST 39 H, ALT 36, Alkaline Phosphatase 218 H, Troponin I < 0.01, C-Reactive Protein 229.8 H, NT-Pro-B Natriuret Pep 388, Total Protein 6.8, Albumin 3.5, Globulin 3.3 H, Albumin/Globulin Ratio 1.1, Procalcitonin 0.241, TSH 2.93, Thyroxine (T4) 9.4, Chlamy pneumoniae PCR Not detected, Adenovirus (PCR) Not detected, B. pertussis DNA (PCR) Not detected, Coronavirus OC43 (PCR) Not detected, Coronavirus HKU1 (PCR) Not detected, Coronavirus 229E (PCR) Not detected, SARS-CoV-2 (PCR) Not detected, Coronavirus NL63 (PCR) Not detected, Human Metapneumovir PCR Not detected, Influenza A (H1) PCR Not detected, Influ A (H1N1/09) PCR Not detected, Influenza A (H3) PCR Not detected, Influenza Type A (PCR) Not detected, Influenza Type B (PCR) Not detected, M. pneumoniae (PCR) Not detected, Parainfluenza 1 (PCR) Not detected, Parainfluenza 2 (PCR) Not detected, Parainfluenza 3 (PCR) Not detected, Parainfluenza 4 (PCR) Not detected, RSV (PCR) Not detected, Entero/Rhino (PCR) Not detected 04/12/24 20:33: POC Glucose 366 H* 04/13/24 05:26: POC Glucose 326 H* 04/13/24 05:50: WBC 12.0 H, RBC 3.99 L, Hgb 11.1 L, Hct 35.0 L, MCV 87.7, MCH 27.8, MCHC 31.7 L, RDW 14.5, Plt Count 183, MPV 11.3 H, Neut % (Auto) 88.7 H, Lymph % (Auto) 8.2 L, [place] % (Auto) 2.4, Eos % (Auto) 0.0 L, Baso % (Auto) 0.1, Neut # (Auto) 10.7 H, Lymph # (Auto) 1.0, [place] # (Auto) 0.3, Eos # (Auto) 0.0, Baso # (Auto) 0.0, Sodium 140, Chloride 107, Carbon Dioxide 24, BUN 28 H, Creatinine 1.60 H, Estimated Creat Clear 34, Estimated GFR 31 L, Est GFR ( Amer) 37 L, Glucose 360 H D, Hemoglobin A1c 7.4 H, Calcium 9.1, Magnesium 2.8 H, Total Bilirubin 0.4, AST 30, ALT 35, Alkaline Phosphatase 218 H , Total Protein 6.6, Albumin 3.4 L, Globulin 3.2, Albumin/Globulin Ratio 1.1, TSH 0.95 D, Free T4 1.40 I & O for Labs for Last 24 Hours: Intake & Output 04/12/24 04/13/24 04/14/24 04/15/24 23:59 23:59 23:59 23:59 Intake Total 360 / 360 1440 / 1680 1150 / 1150 270 / 270 Output Total 700 / 700 1450 / 1450 900 / 900 Balance 360 / 360 740 / 980 -300 / -300 -630 / -630 Weight 180 lb 180 lb 0.013 oz 176 lb 1.6 oz 178 lb 4.8 oz Intake & Output 04/10/24 04/11/24 04/12/24 04/13/24 23:59 23:59 23:59 23:59 Intake Total 360 / 360 Output Total 0 / 0 Balance 360 / 360 0 / 0 Weight 180 lb 180 lb 0.013 oz Microbiology Reports for the Last 24 Hours: Microbiology 04/13/24 11:30 Nose - Nasal MRSA Culture - Final Negative 04/12/24 11:45 Blood Blood Culture - Final Staphylococcus epidermidis 04/12/24 11:45 Blood Blood Culture - Preliminary NO GROWTH AFTER 48 HOURS 04/13/24 13:45 Sputum - Expectorated Sputum Gram Stain - Final 04/13/24 13:45 Sputum - Expectorated Sputum Sputum Culture - Preliminary Constitutional: Present moderate distress Head: Present normocephalic and atraumatic ENT: Present normal exam, normal oropharynx and mucous membranes moist Neck: Present normal inspection and full ROM Respiratory: Present respiratory distress, rhonchi, wheezes, diminished air movement and able to speak in complete sentences Cardiac: Present S1/S2, Tachycardia and radial pulses present GI: Present soft and distention; Absent tenderness or guarding Rectal (female): Present deferred (female): Present deferred Skin: Present intact; Absent cyanosis or jaundice Neuro: Present alert, awake and oriented x 3 Extremities: Present normal inspection; Absent clubbing or cyanosis Psychiatric: Present normal affect and cooperative Assessment and Plan *Assessment and plan (1) Pneumonia: Problem Comment: Suspected MRSA pneumonia of bilateral lungs Status: Acute Category: Medical Code(s): J18.9 - Pneumonia, unspecified organism (2) Mediastinal lymphadenopathy: Status: Acute Category: Medical Code(s): R59.0 - Localized enlarged lymph nodes (3) Hilar lymphadenopathy: Status: Acute Category: Medical Code(s): R59.0 - Localized enlarged lymph nodes (4) Lung nodule: Status: Acute Category: Medical Code(s): R91.1 - Solitary pulmonary nodule (5) Acute exacerbation of chronic obstructive pulmonary disease: Status: Acute Category: Medical Code(s): J44.1 - Chronic obstructive pulmonary disease with (acute) exacerbation Plan Patient is a poor historian. Ms. Gonzalez is a 84-year-old female with reported history of COPD chronic hypoxic respiratory failure hypertension dyslipidemia hypothyroidism presented today with worsening respiratory distress and pulmonary was called for further evaluation and management. Afebrile. Hemodynamically stable. Mild neutrophilic predominant leukocytosis. Venous blood gas upon admission did not show any evidence of hypoxic/hypercarbic respiratory failure. KASSANDRA on CKD noted. Comprehensive respiratory viral PCR panel negative. Currently receiving ceftriaxone azithromycin, nebulization therapies and steroids. CTA upon admission evidence of pulmonary embolism. Bilateral patchy airspace disease predominantly upper lobes right greater than left. No effusions noted. CT also noted for concerning right upper lobe nodule along with lymphadenopathy. Can well be reactive/infectious/malignant etiology, need to follow-up imaging as an outpatient On initial examination moderate respiratory distress. Diffuse wheezing and rhonchi noted. Interval update: Blood cultures 1 bottle growing staph.epi MEC a gene positive. Nasal MRSA screen negative. Sputum cultures no reportable results. Plan: Continue clindamycin for a total of 7-day course. Trelegy 100 inhaler along with DuoNebs 4 times daily as needed Continue prednisone 40 mg daily x 5 days # # Thank for involving pulmonary in this patient. Will follow as an outpatient basis. # For the noted concerning lung nodule lymphadenopathy will follow as an outpatient basis with repeat imaging
[2024-04-15 10:58] LABS: POC Glucose,Bedside 277 (70-110)
[2024-04-15] MEDS: LIDOCAINE 2% VISCOUS SOL 15ML UDC 15 ML MM (11:27)
--- NOTE | 2024-04-15 11:47 | PC.NURSE ---
FAMILY NOTIFIED THAT PATIENT WOULD BE GOING BACK TO THE [facility] TODAY
--- NOTE | 2024-04-15 12:10 | PC.NURSE ---
Addendum entered by Verena Amin RN 04/15/24 12:35: REPORT CALLED AT 1230 Addendum entered by Verena Amin RN 04/15/24 12:25: ATTEMPTED TO CALL REPORT X2 MORE TIMES. NO ANSWER. ATTEMPTED TO CALL THE [facility]. NO ANSWER. WILL TRY AGAIN. Original Note: ATTEMPTED TO CALL REPORT X2. NO ANSWER. WILL TRY AGAIN IN 5 MINUTES.
[2024-04-15 17:32] LABS: POC Glucose,Bedside 343 (70-110)
--- NOTE | 2024-04-15 18:49 | PC.NURSE ---
pt has done well this shift. lung sounds are wheezy. vss. she is ready for dc to [facility]. [facility] is aware pt will be there late due to [facility] transport issues and are ok with that. no c/o pain or sob this shift
[2024-04-15] MEDS: ATORVASTATIN 20MG TABLET 20 MG PO (21:01)
[2024-04-15] MEDS: PANTOPRAZOLE 40MG TABLET 40 MG PO (21:04)
[2024-04-15] MEDS: TRAZODONE 50MG TABLET 50 MG PO (21:04)
[2024-04-15] MEDS: MIRTAZAPINE 15 MG TABLET PO (21:04)
--- NOTE | 2024-04-15 22:03 | PC.NURSE ---
Called EMS to get update on cherry picker operator time, they stated that it will be a while due to other transfers then called [facility] to update them of late transfer, [facility] stated they aqre ok with anytime the transfer can be made. Nurse and material handling warehouse supervisor made aware.
[2024-04-15 22:05] LABS: POC Glucose,Bedside 427 (70-110)
--- NOTE | 2024-04-15 23:41 | PC.NURSE ---
Family called about an update on pt and was told we are still waiting on transport. She was concerned about being transported so late. Hospitalist was called and confirmed he is still ok with transport. Family notified.
[2024-04-16] VITALS: BP 113/56; PULSE 76; RESP 18; TEMP 36.3; O2SAT 93
[2024-04-16] MEDS: IPRATROPIUM/ALBUTEROL 3 ML NEB IH (02:34)
[2024-04-16 03:43] VITALS: BP 124/63; PULSE 78; RESP 16; TEMP 36.3; O2SAT 90; BMI 29.1
== END 2024-04-16 05:40 | DRG 178 ==
LOC: ER 13:53 → 2ND 14:31
PROVIDERS: Internal Medicine Adolescent Medicine; Admitting Provider Student in an Organized Health Care Education/Training Program; Emergency Provider Emergency Medicine; Visit Provider Student in an Organized Health Care Education/Training Program
DX: J15.212 Pneumonia due to Methicillin resistant Staphylococcus aureus (principal); J44.1 Chronic obstructive pulmonary disease with (acute) exacerbation; E03.9 Hypothyroidism, unspecified; R91.1 Solitary pulmonary nodule; E11.42 Type 2 diabetes mellitus with diabetic polyneuropathy; E78.5 Hyperlipidemia, unspecified; E66.9 Obesity, unspecified; K21.9 Gastro-esophageal reflux disease without esophagitis; R59.0 Localized enlarged lymph nodes; B95.7 Other staphylococcus as the cause of diseases classified elsewhere; F17.210 Nicotine dependence, cigarettes, uncomplicated; Z99.81 Dependence on supplemental oxygen; Z79.02 Long term (current) use of antithrombotics/antiplatelets; Z79.82 Long term (current) use of aspirin; Z68.29 Body mass index [BMI] 29.0-29.9, adult; Z79.84 Long term (current) use of oral hypoglycemic drugs; Z79.4 Long term (current) use of insulin; Z79.890 Hormone replacement therapy; Z86.73 Personal history of transient ischemic attack (TIA), and cerebral infarction without residual deficits
CPT/HCPCS: 36415; 71275; 80053; 82803; 82962; 83036; 83735; 83880; 84145; 84436; 84439; 84443; 84484; 85007; 85025; 85378; 86140; 86803; 87040; 87070; 87077; 87081; 87186; 87205; 87633; 93005; 94640; 94761; 97110; 97162; 97166; 97530; 99291; J0456; J0696; J1650; J2919; J3475; J7050; J7620; Q9967